=== PATIENT | female | born 1990 | race Caucasian/White ===

== ENCOUNTER 2016-03-16 14:23 | Emergency (ER) | payer BC ==
[2016-03-16 14:51] VITALS: RESP 18
[2016-03-16] MEDS ORDERED: ONDANSETRON 4 MG/2 ML VIAL IVP STA (17:57)
[2016-03-16] MEDS ORDERED: SODIUM CHLORIDE 0.9% 1,000 ML IV ONE (17:59)
[2016-03-16] MEDS ORDERED: MORPHINE SULFATE 4 MG/ML SYRINGE IVP STA (18:00)
--- NOTE | 2016-03-16 18:05 | ED ---
Nausea/Vomiting/Diarrhea HPI - General Chief complaint: Nausea/Vomiting/Diarrhea Stated complaint: Abd Pain Time Seen by Provider: 03/16/16 17:25 Source: patient, RN notes reviewed Mode of arrival: ambulatory Limitations: no limitations - History of Present Illness Initial comments: Patient is a 25-year-old female presents emergency room for abdominal pain, nausea and vomiting. Patient states about 4 days ago she began having multiple episodes of diarrhea. Patient states 2 days later she began having nausea and vomiting. Patient states she can't keep any food down. Patient states she began developing right lower quadrant pain starting this afternoon. Patient states the pain is getting worse since it started. Patient denies any abdominal surgeries. Patient states she is having 5 out of 10 constant throbbing pain in her right lower quadrant that radiates to her back. Patient denies any pain or burning during urination, trouble urinating or blood in urine. Patient denies being currently sexually active. Patient denies any history of STDs. Patient states she is currently menstruating. Patient denies any other significant past medical history. Patient denies blood in stools. Patient denies recent travel outside of the country. - Related Data Home Medications Medication Instructions Recorded Confirmed Norethindrone-E.estradiol-Iron 1 tab PO HS 03/16/16 03/16/16 [Blisovi Fe 1.5-30 Tablet] Previous Rx's Medication Instructions Recorded Nitrofurantoin Monohyd/M-Cryst 100 mg PO Q12HR 5 Days 03/16/16 [Macrobid] Ondansetron Odt [Zofran Odt] 4 mg PO Q8HR PRN #12 tab 03/16/16 Allergies Allergy/AdvReac Type Severity Reaction Status Date / Time No Known Allergies Allergy Verified 03/16/16 18:15 Review of Systems ROS Statement: Those systems with pertinent positive or pertinent negative responses have been documented in the HPI. ROS Other: All systems not noted in ROS Statement are negative. Past Medical History Past Medical History: No Reported History, Seizure Disorder Additional Past Medical History / Comment(s): ovarian cyst History of Any Multi-Drug Resistant Organisms: None Reported Additional Past Surgical History / Comment(s): ovarian cyst removed Past Psychological History: No Psychological Hx Reported Smoking Status: Never smoker Past Alcohol Use History: Occasional Past Drug Use History: None Reported General Exam - General Exam Comments Initial Comments: Sitting in exam room, no acute distress. Limitations: no limitations General appearance: alert, in no apparent distress Head exam: Present: atraumatic, normocephalic, normal inspection Eye exam: Present: normal appearance ENT exam: Present: normal exam Neck exam: Present: normal inspection Respiratory exam: Present: normal lung sounds bilaterally. Absent: respiratory distress Cardiovascular Exam: Present: regular rate, normal rhythm, normal heart sounds GI/Abdominal exam: Present: soft, tenderness (Right lower quadrant), normal bowel sounds. Absent: distended, guarding, rebound, rigid External exam: Present: normal external exam Speculum exam: Present: vaginal bleeding (Patient is menstruating) By manual exam: Present: normal by manual exam Extremities exam: Present: normal inspection Back exam: Present: normal inspection Neurological exam: Present: alert, oriented X3, CN II-XII intact, normal gait Psychiatric exam: Present: normal affect, normal mood Skin exam: Present: warm, dry, intact, normal color. Absent: rash Course Vital Signs 03/16/16 14:48 Temperature 98.9 F Pulse Rate 89 Respiratory 18 Rate Blood Pressure 125/71 O2 Sat by Pulse 100 Oximetry Medical Decision Making - Medical Decision Making Patient is a 25-year-old female since emergency room for evaluation of nausea, vomiting and abdominal pain. Labs show no significant findings. Urinalysis suspicious for urinary tract infection. CT abdomen and pelvis shows no acute findings. Patient states she is feeling better after medications. Will send patient home with antibiotics for urinary tract infection and advised to return for any worsening symptoms. Patient states she understands everything that was discussed with her. Case discussed with Dr. Zaman - Lab Data Result diagrams: 03/16/16 17:35 03/16/16 17:35 Lab Results 03/16/16 03/16/16 03/16/16 Range/Units 17:35 17:35 17:35 WBC 7.9 (3.8-10.6) k/uL RBC 4.95 (3.80-5.40) m/uL Hgb 14.4 (11.4-16.0) gm/dL Hct 42.0 (34.0-46.0) % MCV 84.9 (80.0-100.0) fL MCH 29.1 (25.0-35.0) pg MCHC 34.3 (31.0-37.0) g/dL RDW 12.6 (11.5-15.5) % Plt Count 175 (150-450) k/uL Neutrophils % 58 % Lymphocytes % 28 % Monocytes % 7 % Eosinophils % 4 % Basophils % 0 % Neutrophils # 4.6 (1.3-7.7) k/uL Lymphocytes # 2.2 (1.0-4.8) k/uL Monocytes # 0.6 (0-1.0) k/uL Eosinophils # 0.3 (0-0.7) k/uL Basophils # 0.0 (0-0.2) k/uL Sodium 143 (137-145) mmol/L Potassium 3.9 (3.5-5.1) mmol/L Chloride 106 (98-107) mmol/L Carbon Dioxide 24 (22-30) mmol/L Anion Gap 13 mmol/L BUN 14 (7-17) mg/dL Creatinine 0.68 (0.52-1.04) mg/dL Est GFR (MDRD) Af Amer >60 (>60 ml/min/1.73 sqM) Est GFR (MDRD) Non-Af >60 (>60 ml/min/1.73 sqM) Glucose 81 (74-99) mg/dL Calcium 9.4 (8.4-10.2) mg/dL Total Bilirubin 1.1 (0.2-1.3) mg/dL AST 27 (14-36) U/L ALT 53 H (9-52) U/L Alkaline Phosphatase 61 (38-126) U/L Total Protein 7.9 (6.3-8.2) g/dL Albumin 4.4 (3.5-5.0) g/dL Amylase 32 (30-110) U/L Lipase 53 (23-300) U/L Urine Color Urine Appearance (Clear) Urine pH (5.0-8.0) Ur Specific [place] (1.001-1.035) Urine Protein (Negative) Urine Glucose (UA) (Negative) Urine Ketones (Negative) Urine Blood (Negative) Urine Nitrate (Negative) Urine Bilirubin (Negative) Urine Urobilinogen (<2.0) mg/dL Ur Leukocyte Esterase (Negative) Urine RBC (0-5) /hpf Urine WBC (0-5) /hpf Ur Squamous Epith Cells (0-4) /hpf Urine Bacteria (None) /hpf Hyaline Casts (0-2) /lpf Urine Mucus (None) /hpf Urine HCG, Qual (Not Detectd) Trichomonas Ag (Rapid) (Negative) 03/16/16 03/16/16 03/16/16 Range/Units 17:35 17:35 18:50 WBC (3.8-10.6) k/uL RBC (3.80-5.40) m/uL Hgb (11.4-16.0) gm/dL Hct (34.0-46.0) % MCV (80.0-100.0) fL MCH (25.0-35.0) pg MCHC (31.0-37.0) g/dL RDW (11.5-15.5) % Plt Count (150-450) k/uL Neutrophils % % Lymphocytes % % Monocytes % % Eosinophils % % Basophils % % Neutrophils # (1.3-7.7) k/uL Lymphocytes # (1.0-4.8) k/uL Monocytes # (0-1.0) k/uL Eosinophils # (0-0.7) k/uL Basophils # (0-0.2) k/uL Sodium (137-145) mmol/L Potassium (3.5-5.1) mmol/L Chloride (98-107) mmol/L Carbon Dioxide (22-30) mmol/L Anion Gap mmol/L BUN (7-17) mg/dL Creatinine (0.52-1.04) mg/dL Est GFR (MDRD) Af Amer (>60 ml/min/1.73 sqM) Est GFR (MDRD) Non-Af (>60 ml/min/1.73 sqM) Glucose (74-99) mg/dL Calcium (8.4-10.2) mg/dL Total Bilirubin (0.2-1.3) mg/dL AST (14-36) U/L ALT (9-52) U/L Alkaline Phosphatase (38-126) U/L Total Protein (6.3-8.2) g/dL Albumin (3.5-5.0) g/dL Amylase (30-110) U/L Lipase (23-300) U/L Urine Color Light Red Urine Appearance Cloudy H (Clear) Urine pH 7.0 (5.0-8.0) Ur Specific [place] 1.023 (1.001-1.035) Urine Protein 1+ H (Negative) Urine Glucose (UA) Negative (Negative) Urine Ketones 1+ H (Negative) Urine Blood Large H (Negative) Urine Nitrate Negative (Negative) Urine Bilirubin Negative (Negative) Urine Urobilinogen 2.0 (<2.0) mg/dL Ur Leukocyte Esterase Small H (Negative) Urine RBC >182 H (0-5) /hpf Urine WBC 33 H (0-5) /hpf Ur Squamous Epith Cells 2 (0-4) /hpf Urine Bacteria Few H (None) /hpf Hyaline Casts 2 (0-2) /lpf Urine Mucus Occasional H (None) /hpf Urine HCG, Qual Not Detected (Not Detectd) Trichomonas Ag (Rapid) Negative (Negative) - Radiology Data Radiology results: report reviewed, image reviewed Disposition Clinical Impression: Nausea and vomiting, Urinary tract infection Disposition: HOME SELF-CARE Condition: Good Instructions: Acute Nausea and Vomiting (ED), Urinary Tract Infection in Women (ED) Additional Instructions: Take antibiotics as directed. Take Zofran as needed for nausea. Drink plenty of fluids. Please follow-up with primary care provider in 1-2 days for reevaluation. If any new symptom arises, symptoms worsen or fever develops, return to ER as soon as possible. Prescriptions: Ondansetron Odt [Zofran Odt] 4 mg PO Q8HR PRN #12 tab PRN Reason: Nausea Nitrofurantoin Monohyd/M-Cryst [Macrobid] 100 mg PO Q12HR 5 Days Referrals: Brett Rhodes MD [Primary Care Provider] - 1-2 days Time of Disposition: 20:02
[2016-03-16 18:10] LABS: Basophils % (A) 0 %; CHCM 35.4; Eosinophils # (A) 0.3 k/uL (0-0.7); Eosinophils % (A) 4 %; HDW 2.79; HGB 14.4 gm/dL (11.4-16.0); Luc # (Auto) 0.21; Luc % (Auto) 3; Lymphocytes # (A) 2.2 k/uL (1.0-4.8); Lymphocytes % (A) 28 %; MCH 29.1 pg (25.0-35.0); MCHC 34.3 g/dL (31.0-37.0); MCV 84.9 fL (80.0-100.0); Mean Platelet Volume 8.3; Monocytes # (A) 0.6 k/uL (0-1.0); Monocytes % (A) 7 %; Neutrophils # (A) 4.6 k/uL (1.3-7.7); Neutrophils % (A) 58 %; RBC 4.95 m/uL (3.80-5.40); RDW 12.6 % (11.5-15.5); WBC 7.9 k/uL (3.8-10.6); WBC (Perox) 8.05
[2016-03-16 18:12] LABS: Appearance,Urine Cloudy (Clear); Bacteria,Urine Few /hpf; Bilirubin,Urine Negative (Negative); Glucose,Urine (UA) Negative (Negative); Ketones,Urine 1+ (Negative); Leukocyte Esterase,Urine Small (Negative); Mucus,Urine Occasional /hpf; Nitrite,Urine Negative (Negative); Particle Count 9167; Protein,Urine 1+ (Negative); RBC,Urine >182 /hpf (0-5); Specific Gravity,Urine 1.023 (1.001-1.035); Squamous Epithelial Cell,Urine 2 /hpf (0-4); UA Billing (MACRO vs. MICRO) MICRO; WBC,Urine 33 /hpf (0-5)
[2016-03-16 18:23] LABS: ALT 53 U/L (9-52); AST 27 U/L (14-36); Alkaline Phosphatase 61 U/L (38-126); Amylase 32 U/L (30-110); Anion Gap 13 mmol/L; Blood Urea Nitrogen 14 mg/dL (7-17); Calcium 9.4 mg/dL (8.4-10.2); Carbon Dioxide 24 mmol/L (22-30); Chloride 106 mmol/L (98-107); Glucose 81 mg/dL (74-99); Non-African American GFR(MDRD) >60 (>60 ml/min/1.73 sqM); Potassium 3.9 mmol/L (3.5-5.1); Sodium 143 mmol/L (137-145); Total Bilirubin 1.1 mg/dL (0.2-1.3); Total Protein 7.9 g/dL (6.3-8.2)
[2016-03-16] MEDS ORDERED: RX INFO: IV CONTRAST WAS GIVEN 1 EACH MISC MISCELLANE PRN ×2 (18:49→18:53)
--- NOTE | 2016-03-16 19:26 | CT ---
EXAMINATION TYPE: CT abdomen pelvis w con DATE OF EXAM: 03/16/2016 7:18 PM COMPARISON: 11/08/2014 HISTORY: Nausea, vomiting and diarrhea with right lower quadrant pain. CT DLP: 1071.40 mGycm Automated exposure control for dose reduction was used. TECHNIQUE: Helical acquisition of images was performed from the lung bases through the pelvis. CONTRAST: Performed without Oral Contrast and with IV Contrast, patient injected with 100 mL of Omnipaque 300. FINDINGS: The lung bases are clear. There is no pleural effusion. Liver spleen pancreas gallbladder appear normal. Bowel ducts are not dilated. There is no adrenal mas s. Kidneys show satisfactory contrast opacification. There is no hydronephrosis. There is no retroper itoneal adenopathy. There is no ascites. Terminal ileum appears normal. Appendix appears normal. I se e no intestinal wall thickening. There are no dilated loops. There is no ascites. There is a 3 cm lef t ovarian cyst. Uterus is anteverted. I see no bony destructive process. IMPRESSION: LEFT OVARIAN CYST. NORMAL APPENDIX. I DO NOT SEE A CAUSE FOR RIGHT LOWER QUADRANT PAIN. SPLEEN IS UPP ER LIMIT OF NORMAL SIZE AND APPEARS SMALLER THAN OLD EXAM.
[2016-03-16 20:33] VITALS: BP 145/87; PULSE 88; TEMP 98
== END 2016-03-16 20:33 | disposition home or self-care (01) ==
LOC: EC 14:23
DX: N39.0 Urinary tract infection, site not specified (principal); R11.2 Nausea with vomiting, unspecified; R19.7 Diarrhea, unspecified; N83.202 Unspecified ovarian cyst, left side; Z79.3 Long term (current) use of hormonal contraceptives
CPT/HCPCS: 87205; 96361 ×3; 96374 ×2; 96375 ×2; 99284 ×2; 36415; 80053; 87591; 87491; 82150; 83690; 85025; 81001; 81025; 87808; 87070; 87086; 74177; J2270; J2405; Q9967

== ENCOUNTER → 2016-09-24 | Outpatient (CLI) | payer BC ==
--- NOTE | 2016-10-02 12:52 | HM ---
24 HOUR DCG REPORT Patient in her diary did not indicate any entries. Predominant rhythm appears to be sinus with a heart rate ranging from 56 to 150 beats per minute with an average heart rate of 87 beats per minute. Rare isolated PAC's and PVC's were noted. There was some sinus arrhythmia. There is no evidence of any significant bradyarrhythmia noted. Patient did not report any symptoms. FINAL IMPRESSION: Predominant rhythm is sinus with sinus arrhythmia. Average heart rate was 87 beats per minute. There were rare isolated PAC's and PVC's. No significant bradyarrhythmia was noted. [facility]
== END | disposition home or self-care (01) ==
LOC: RADECHMAIN 11:54
PROVIDERS: ATTEND Family Medicine
DX: I49.1 Atrial premature depolarization (principal); I49.3 Ventricular premature depolarization
CPT/HCPCS: 93225; 93226

== ENCOUNTER 2016-11-06 18:40 | Emergency (ER) | payer BC ==
[2016-11-06] MEDS ORDERED: KETOROLAC 30 MG/ML 1 ML VIAL IVP STA (19:33)
[2016-11-06] MEDS ORDERED: SODIUM CHLORIDE 0.9% 1,000 ML IV STA (19:33)
--- NOTE | 2016-11-06 19:37 | ED ---
Chest Pain HPI - General Chief Complaint: Chest Pain Stated Complaint: heart racing, pain Time Seen by Provider: 11/06/16 19:22 Source: patient, RN notes reviewed, old records reviewed Mode of arrival: ambulatory Limitations: no limitations - History of Present Illness Initial Comments: This is a 26 rolled female presents emergency Department chief complaint of a heart racing episode while she was at work today, and a left-sided chest pain. Patient states that she has had similar episodes like this in the past. She did have a Holter monitor completed towards the end of last month. Patient states that she felt diaphoretic when she had a subsequent, denies any nausea or vomiting. She states that she does have some reproducible pain over her left chest, but states that sometimes the pain feels deeper. She reports it seems like sharp and stabbing. Denies any cough or upper respiratory symptoms. She relates that she's had no diarrhea, urinary symptoms. No significant family history of cardiac disease. - Related Data Home Medications Medication Instructions Recorded Confirmed Norethindrone-E.estradiol-Iron 1 tab PO HS 03/16/16 11/06/16 [Blisovi Fe 1.5-30 Tablet] Allergies Allergy/AdvReac Type Severity Reaction Status Date / Time No Known Allergies Allergy Verified 11/06/16 19:22 Review of Systems ROS Statement: Those systems with pertinent positive or pertinent negative responses have been documented in the HPI. ROS Other: All systems not noted in ROS Statement are negative. EKG Findings - EKG Comments: EKG Findings:: EKG shows normal sinus rhythm. Ventricular rate of 87 bpm. KS interval 162 ms. QRS duration 80 ms. QT QTc is 362/435 ms. Noelevation or T- wave inversion. No evidence of atrial or ventricular Past Medical History Past Medical History: No Reported History, Seizure Disorder Additional Past Medical History / Comment(s): ovarian cyst History of Any Multi-Drug Resistant Organisms: None Reported Additional Past Surgical History / Comment(s): ovarian cyst removed Past Psychological History: No Psychological Hx Reported Smoking Status: Never smoker Past Alcohol Use History: Occasional Past Drug Use History: None Reported General Exam - General Exam Comments Initial Comments: This is a 26-year-old female. No acute distress. Limitations: no limitations General appearance: alert, in no apparent distress Head exam: Present: atraumatic, normocephalic, normal inspection Eye exam: Present: normal appearance, PERRL, EOMI. Absent: scleral icterus, conjunctival injection, periorbital swelling ENT exam: Present: normal exam, mucous membranes moist Neck exam: Present: normal inspection. Absent: tenderness, meningismus, lymphadenopathy Respiratory exam: Present: normal lung sounds bilaterally. Absent: respiratory distress, wheezes, rales, rhonchi, stridor Cardiovascular Exam: Present: regular rate, normal rhythm, normal heart sounds. Absent: systolic murmur, diastolic murmur, rubs, gallop, clicks GI/Abdominal exam: Present: soft, normal bowel sounds. Absent: distended, tenderness, guarding, rebound, rigid Extremities exam: Present: normal inspection, full ROM, normal capillary refill. Absent: tenderness, pedal edema, joint swelling, calf tenderness Back exam: Present: normal inspection Neurological exam: Present: alert, oriented X3, CN II-XII intact Psychiatric exam: Present: normal affect, normal mood Skin exam: Present: warm, dry, intact, normal color. Absent: rash Course Vital Signs 11/06/16 11/06/16 18:56 21:35 Temperature 97.8 F 99.2 F Pulse Rate 96 91 Respiratory 16 18 Rate Blood Pressure 122/72 134/70 O2 Sat by Pulse 100 98 Oximetry Chest Pain MDM - MDM This is a 26 rolled female presents emergency Department chief complaint of a heart racing episode while she was at work today, and a left-sided chest pain. Patient states that she has had similar episodes like this in the past. She did have a Holter monitor completed towards the end of last month. Patient lungs are clear, chest pain is not reproducible. Patient has had no further episodes of chest pain. Patient was given toradol and zofran. Patient has negative troponin. CXR is clear. Discussed that at this time with all negative test results, patient needs to follow up with PCP and will be discharged. Discussed her previous holter monitor showed occasional PVC , which may relate to her pain. Patient agrees to follow up with cardioology. Disposition Clinical Impression: Atypical chest pain Disposition: HOME SELF-CARE Condition: Good Instructions: Chest Pain (ED) Additional Instructions: Follow up with PCP, and cardiology. REturn if any alarming signs or symptoms occur. Referrals: Brett Rhodes MD [Primary Care Provider] - 1-2 days Angely Meneses MD [STAFF PHYSICIAN] - 1-2 days Time of Disposition: 21:53
[2016-11-06 20:02] LABS: Basophils % (A) 0 %; CH 30.1; CHCM 35.8; Eosinophils # (A) 0.2 k/uL (0-0.7); Eosinophils % (A) 2 %; HCT 43.1 % (34.0-46.0); HDW 2.82; HGB 15.4 gm/dL (11.4-16.0); Luc # (Auto) 0.24; Luc % (Auto) 3; Lymphocytes # (A) 2.5 k/uL (1.0-4.8); Lymphocytes % (A) 31 %; MCH 30.2 pg (25.0-35.0); MCHC 35.7 g/dL (31.0-37.0); MCV 84.5 fL (80.0-100.0); Monocytes # (A) 0.4 k/uL (0-1.0); Monocytes % (A) 5 %; Neutrophils # (A) 4.9 k/uL (1.3-7.7); Neutrophils % (A) 59 %; RDW 12.3 % (11.5-15.5); WBC 8.2 k/uL (3.8-10.6); WBC (Perox) 8.24
[2016-11-06 20:09] LABS: ALT 59 U/L (9-52); AST 29 U/L (14-36); Alkaline Phosphatase 72 U/L (38-126); Amylase 36 U/L (30-110); Anion Gap 12 mmol/L; Blood Urea Nitrogen 18 mg/dL (7-17); Calcium 9.9 mg/dL (8.4-10.2); Carbon Dioxide 24 mmol/L (22-30); Chloride 105 mmol/L (98-107); Glucose 82 mg/dL (74-99); Magnesium 1.7 mg/dL (1.6-2.3); Non-African American GFR(MDRD) >60 (>60 ml/min/1.73 sqM); Potassium 4.4 mmol/L (3.5-5.1); Sodium 141 mmol/L (137-145); Total Bilirubin 0.6 mg/dL (0.2-1.3); Total Protein 7.9 g/dL (6.3-8.2)
[2016-11-06 20:10] LABS: Appearance,Urine Cloudy (Clear); Bacteria,Urine Few /hpf; Bilirubin,Urine Negative (Negative); Glucose,Urine (UA) Negative (Negative); Ketones,Urine Negative (Negative); Leukocyte Esterase,Urine Large (Negative); Mucus,Urine Rare /hpf; Nitrite,Urine Negative (Negative); PH, Urine 6.5 (5.0-8.0); Particle Count 2739; Protein,Urine Negative (Negative); RBC,Urine 51 /hpf (0-5); Squamous Epithelial Cell,Urine 3 /hpf (0-4); UA Billing (MACRO vs. MICRO) MICRO; Urobilinogen,Urine <2.0 mg/dL (<2.0); WBC,Urine 48 /hpf (0-5)
[2016-11-06 20:10] LABS: Prothrombin Time 10.3 sec (9.0-12.0)
[2016-11-06 20:20] LABS: Creatine Kinase 30 U/L (30-135)
--- NOTE | 2016-11-06 20:22 | XR ---
EXAMINATION TYPE: XR chest 2V DATE OF EXAM: 11/06/2016 COMPARISON: NONE HISTORY: Chest pain TECHNIQUE: Frontal and lateral views of the chest are obtained. FINDINGS: There is no heart failure nor confluent pneumonic infiltrate. Costophrenic angles are sheldon r. Heart size is normal. There are no hilar masses. There is no sign of pleural effusion. Bony thorax is intact. IMPRESSION: No active cardiopulmonary disease.
[2016-11-06 20:33] LABS: Creatine Kinase MB 0.3 ng/mL (0.0-2.4); Troponin I <0.012 ng/mL (0.000-0.034)
[2016-11-06 21:47] VITALS: BP 134/70; PULSE 91; RESP 18; TEMP 99.2
== END 2016-11-06 22:12 | disposition home or self-care (01) ==
LOC: EC 18:40
DX: R07.89 Other chest pain (principal); R00.0 Tachycardia, unspecified; R61 Generalized hyperhidrosis; Z79.3 Long term (current) use of hormonal contraceptives
CPT/HCPCS: 36415; 93005; 85379; 80053; 82150; 82550; 82553; 83690; 83735; 84484; 85025; 85610; 85730; 81001; 71020; 99285; 96374; 96361 ×2; J1885

== ENCOUNTER 2017-01-07 18:18 | Emergency (ER) | payer BC ==
[2017-01-07] MEDS ORDERED: LORazepam 2 MG/ML INJ IV STA (18:50)
[2017-01-07 19:27] LABS: Appearance,Urine Cloudy (Clear); Bacteria,Urine Few /hpf; Bilirubin,Urine Negative (Negative); Glucose,Urine (UA) Negative (Negative); Ketones,Urine Negative (Negative); Leukocyte Esterase,Urine Trace (Negative); Mucus,Urine Few /hpf; Nitrite,Urine Negative (Negative); PH, Urine 6.5 (5.0-8.0); Particle Count 9471; Protein,Urine 1+ (Negative); RBC,Urine <1 /hpf (0-5); Specific Gravity,Urine 1.022 (1.001-1.035); Squamous Epithelial Cell,Urine 4 /hpf (0-4); UA Billing (MACRO vs. MICRO) MICRO; Urobilinogen,Urine <2.0 mg/dL (<2.0); WBC,Urine 9 /hpf (0-5)
[2017-01-07 19:38] LABS: Basophils % (A) 0 %; CHCM 35.7; Eosinophils # (A) 0.1 k/uL (0-0.7); Eosinophils % (A) 1 %; HCT 44.5 % (34.0-46.0); HDW 2.97; HGB 15.2 gm/dL (11.4-16.0); Luc # (Auto) 0.23; Luc % (Auto) 2; Lymphocytes # (A) 2.3 k/uL (1.0-4.8); Lymphocytes % (A) 22 %; MCH 28.8 pg (25.0-35.0); MCHC 34.2 g/dL (31.0-37.0); MCV 84.2 fL (80.0-100.0); Monocytes # (A) 0.5 k/uL (0-1.0); Monocytes % (A) 5 %; Neutrophils # (A) 7.2 k/uL (1.3-7.7); Neutrophils % (A) 69 %; RBC 5.28 m/uL (3.80-5.40); RDW 11.8 % (11.5-15.5); WBC 10.4 k/uL (3.8-10.6); WBC (Perox) 9.99
--- NOTE | 2017-01-07 19:43 | ED ---
General Adult HPI - General Chief complaint: Seizure Stated complaint: seizure Time Seen by Provider: 01/07/17 18:44 Source: patient, RN notes reviewed Mode of arrival: ambulatory Limitations: no limitations - History of Present Illness Initial comments: Patient will be 26-year-old female with significant past medical history for seizures, who presents emergency room today with a chief complaint of seizure that occurred approximately 45 minutes prior to arrival. Patient does admit that she got home from work. Her mother was in the kitchen. Mother providing further history stating that she sat down on a chair and then went into a tonic- clonic type seizure. Patient states that approximately 9 years since she had a seizure similar to this. She states she is no longer on seizure medication she was taken off of them. Patient unable to remember what seizure medication she was on in the past. Patient does admit that she had some cough congestion approximately a week ago which has improved. She does admit to being tired at this time. Mother states it was a postictal phase. She denies any other complaints or symptoms. Patient denies any recent fever, chills, shortness of breath, chest pain, back pain, abdominal pain, nausea or vomiting, numbness or tingling, dysuria or hematuria, constipation or diarrhea, headaches or visual changes, or any other complaints. - Related Data Home Medications Medication Instructions Recorded Confirmed Norethindrone-E.estradiol-Iron 1 tab PO HS 03/16/16 01/07/17 [Blisovi Fe 1.5-30 Tablet] D-Methorphan/PE/Acetaminophen 2 cap PO Q6H PRN 01/07/17 01/07/17 [Vicks Dayquil Liquicaps] Fluticasone Nasal [place] [Flonase 1 spray EA NOSTRIL DAILY PRN 01/07/17 01/07/17 Nasal [place]] Metoprolol Succinate [Toprol XL] 25 mg PO DAILY 01/07/17 01/07/17 Previous Rx's Medication Instructions Recorded Ondansetron Odt [Zofran ODT] 4 mg PO Q8HR PRN #20 tab 01/07/17 levETIRAcetam [Keppra] 500 mg PO Q12HR #60 tab 01/07/17 Allergies Allergy/AdvReac Type Severity Reaction Status Date / Time No Known Allergies Allergy Verified 01/07/17 18:57 Review of Systems ROS Statement: Those systems with pertinent positive or pertinent negative responses have been documented in the HPI. ROS Other: All systems not noted in ROS Statement are negative. Past Medical History Past Medical History: Seizure Disorder Additional Past Medical History / Comment(s): ovarian cyst, heart palpitations History of Any Multi-Drug Resistant Organisms: None Reported Past Surgical History: Adenoidectomy Additional Past Surgical History / Comment(s): ovarian cyst removed Past Psychological History: No Psychological Hx Reported Smoking Status: Never smoker Past Alcohol Use History: Occasional Past Drug Use History: None Reported General Exam - General Exam Comments Initial Comments: General: The patient is awake and alert, in no distress, and does not appear acutely ill. Eye: Pupils are equal, round and reactive to light, extra-ocular movements are intact. No nystagmus. There is normal conjunctiva bilaterally. No signs of icterus. Ears, nose, mouth and throat: There are moist mucous membranes and no oral lesions. Neck: The neck is supple, there is no tenderness or JVD. Cardiovascular: There is a regular rate and rhythm. No murmur, rub or gallop is appreciated. Respiratory: Lungs are clear to auscultation, respirations are non-labored, breath sounds are equal. No wheezes, stridor, rales, or rhonchi. Gastrointestinal: Soft, non-distended, non-tender abdomen without masses or organomegaly noted. There is no rebound or guarding present. No CVA tenderness. Bowel sounds are unremarkable. Musculoskeletal: Normal ROM, no tenderness. Strength 5/5. Sensation intact. Pulses equal bilaterally 2+. Neurological: A&O x 3. CN II-XII intact, There are no obvious motor or sensory deficits. Coordination appears grossly intact. Speech is normal. Skin: Skin is warm and dry and no rashes or lesions are noted. Psychiatric: Cooperative, appropriate mood & affect, normal judgment. Limitations: no limitations Course Vital Signs 01/07/17 01/07/17 18:32 19:27 Temperature 98.1 F Pulse Rate 77 81 Respiratory 18 16 Rate Blood Pressure 124/74 124/64 O2 Sat by Pulse 99 100 Oximetry Medical Decision Making - Medical Decision Making Examined at this time shows no signs of distress. Resting comfortably. No symptoms at this time. Patient feeling better here in emergency room. Patient' s labs been reviewed. Urine culture will be added in this patient is symptomatic. Patient will be started on Keppra. Advised follow-up the family doctor neurologist tomorrow. Advised return to emergency room if any symptoms increase worsen or for any other concerns. - Lab Data Result diagrams: 01/07/17 19:00 01/07/17 19:00 Lab Results 01/07/17 01/07/17 01/07/17 Range/Units 19:00 19:00 19:15 WBC 10.4 (3.8-10.6) k/uL RBC 5.28 (3.80-5.40) m/uL Hgb 15.2 (11.4-16.0) gm/dL Hct 44.5 (34.0-46.0) % MCV 84.2 (80.0-100.0) fL MCH 28.8 (25.0-35.0) pg MCHC 34.2 (31.0-37.0) g/dL RDW 11.8 (11.5-15.5) % Plt Count 226 (150-450) k/uL Neutrophils % 69 % Lymphocytes % 22 % Monocytes % 5 % Eosinophils % 1 % Basophils % 0 % Neutrophils # 7.2 (1.3-7.7) k/uL Lymphocytes # 2.3 (1.0-4.8) k/uL Monocytes # 0.5 (0-1.0) k/uL Eosinophils # 0.1 (0-0.7) k/uL Basophils # 0.0 (0-0.2) k/uL Sodium 143 (137-145) mmol/L Potassium 4.1 (3.5-5.1) mmol/L Chloride 103 (98-107) mmol/L Carbon Dioxide 27 (22-30) mmol/L Anion Gap 13 mmol/L BUN 19 H (7-17) mg/dL Creatinine 0.80 (0.52-1.04) mg/dL Est GFR (MDRD) Af Amer >60 (>60 ml/min/1.73 sqM) Est GFR (MDRD) Non-Af >60 (>60 ml/min/1.73 sqM) Glucose 89 (74-99) mg/dL Calcium 10.0 (8.4-10.2) mg/dL Total Bilirubin 0.4 (0.2-1.3) mg/dL AST 39 H (14-36) U/L ALT 66 H (9-52) U/L Alkaline Phosphatase 112 (38-126) U/L Total Protein 7.9 (6.3-8.2) g/dL Albumin 4.5 (3.5-5.0) g/dL Urine Color Yellow Urine Appearance Cloudy H (Clear) Urine pH 6.5 (5.0-8.0) Ur Specific [place] 1.022 (1.001-1.035) Urine Protein 1+ H (Negative) Urine Glucose (UA) Negative (Negative) Urine Ketones Negative (Negative) Urine Blood Negative (Negative) Urine Nitrite Negative (Negative) Urine Bilirubin Negative (Negative) Urine Urobilinogen <2.0 (<2.0) mg/dL Ur Leukocyte Esterase Trace H (Negative) Urine RBC <1 (0-5) /hpf Urine WBC 9 H (0-5) /hpf Ur Squamous Epith Cells 4 (0-4) /hpf Urine Bacteria Few H (None) /hpf Urine Mucus Few H (None) /hpf Urine Yeast (Budding) Occasional H (None) /hpf Urine HCG, Qual (Not Detectd) 01/07/17 Range/Units 19:15 WBC (3.8-10.6) k/uL RBC (3.80-5.40) m/uL Hgb (11.4-16.0) gm/dL Hct (34.0-46.0) % MCV (80.0-100.0) fL MCH (25.0-35.0) pg MCHC (31.0-37.0) g/dL RDW (11.5-15.5) % Plt Count (150-450) k/uL Neutrophils % % Lymphocytes % % Monocytes % % Eosinophils % % Basophils % % Neutrophils # (1.3-7.7) k/uL Lymphocytes # (1.0-4.8) k/uL Monocytes # (0-1.0) k/uL Eosinophils # (0-0.7) k/uL Basophils # (0-0.2) k/uL Sodium (137-145) mmol/L Potassium (3.5-5.1) mmol/L Chloride (98-107) mmol/L Carbon Dioxide (22-30) mmol/L Anion Gap mmol/L BUN (7-17) mg/dL Creatinine (0.52-1.04) mg/dL Est GFR (MDRD) Af Amer (>60 ml/min/1.73 sqM) Est GFR (MDRD) Non-Af (>60 ml/min/1.73 sqM) Glucose (74-99) mg/dL Calcium (8.4-10.2) mg/dL Total Bilirubin (0.2-1.3) mg/dL AST (14-36) U/L ALT (9-52) U/L Alkaline Phosphatase (38-126) U/L Total Protein (6.3-8.2) g/dL Albumin (3.5-5.0) g/dL Urine Color Urine Appearance (Clear) Urine pH (5.0-8.0) Ur Specific [place] (1.001-1.035) Urine Protein (Negative) Urine Glucose (UA) (Negative) Urine Ketones (Negative) Urine Blood (Negative) Urine Nitrite (Negative) Urine Bilirubin (Negative) Urine Urobilinogen (<2.0) mg/dL Ur Leukocyte Esterase (Negative) Urine RBC (0-5) /hpf Urine WBC (0-5) /hpf Ur Squamous Epith Cells (0-4) /hpf Urine Bacteria (None) /hpf Urine Mucus (None) /hpf Urine Yeast (Budding) (None) /hpf Urine HCG, Qual Not Detected (Not Detectd) Disposition Clinical Impression: Seizure Disposition: HOME SELF-CARE Condition: Good Instructions: New-Onset Seizure in Adults (ED) Additional Instructions: Please use medication as discussed. Please follow-up with family doctor/ neurologist in the next 1-2 days. Please return to emergency room if the symptoms increase or worsen or for any other concerns. Prescriptions: levETIRAcetam [Keppra] 500 mg PO Q12HR #60 tab Ondansetron Odt [Zofran ODT] 4 mg PO Q8HR PRN #20 tab PRN Reason: Nausea Referrals: Brett Rhodes MD [Primary Care Provider] - 1-2 days Time of Disposition: 20:00
[2017-01-07 19:46] LABS: ALT 66 U/L (9-52); AST 39 U/L (14-36); Alkaline Phosphatase 112 U/L (38-126); Anion Gap 13 mmol/L; Blood Urea Nitrogen 19 mg/dL (7-17); Carbon Dioxide 27 mmol/L (22-30); Chloride 103 mmol/L (98-107); Glucose 89 mg/dL (74-99); Non-African American GFR(MDRD) >60 (>60 ml/min/1.73 sqM); Potassium 4.1 mmol/L (3.5-5.1); Sodium 143 mmol/L (137-145); Total Bilirubin 0.4 mg/dL (0.2-1.3); Total Protein 7.9 g/dL (6.3-8.2)
[2017-01-07] MEDS ORDERED: levETIRAcetam 500 MG TAB PO STA (19:55)
[2017-01-07] MEDS ORDERED: ONDANSETRON 4 MG/2 ML VIAL IVP STA (19:56)
[2017-01-07 20:16] VITALS: BP 112/63; PULSE 85; RESP 18
[2017-01-07 20:32] VITALS: TEMP 98
== END 2017-01-07 20:31 | disposition home or self-care (01) ==
LOC: EC 18:18
DX: R56.9 Unspecified convulsions (principal); R05 Cough; R09.81 Nasal congestion; Z79.3 Long term (current) use of hormonal contraceptives; Z79.899 Other long term (current) drug therapy
CPT/HCPCS: 36415; 80053; 85025; 81001; 81025; 99284; 96374; 96375; J2060; J2405

== ENCOUNTER → 2017-04-06 | Outpatient (CLI) | payer BC ==
--- NOTE | 2017-04-06 14:18 | CT ---
EXAMINATION TYPE: CT brain wo con DATE OF EXAM: 04/06/2017 COMPARISON: NONE HISTORY: Patient complains of recent epileptic seizure. Patient has a history of epilepsy. CT DLP: 848.[address] of the brain was performed. The ventricles, basal cisterns and sulci overlying the cerebral convexities demonstrate a normal appe arance. There is no evidence for intracranial hemorrhage or sulcal effacement. No mass effects are seen. Osseous calvarium is intact. If symptoms persist consider MRI as clinically warranted. IMPRESSION: 1. No acute intracranial process is seen at this time.
== END | disposition home or self-care (01) ==
LOC: RADCTMAIN 13:30
PROVIDERS: ATTEND Family Medicine
DX: G40.909 Epilepsy, unspecified, not intractable, without status epilepticus (principal)
CPT/HCPCS: 70450

== ENCOUNTER 2017-11-12 12:35 | Emergency (ER) | payer BC ==
--- NOTE | 2017-11-12 13:59 | ED ---
Abdominal Pain HPI - General Chief Complaint: Abdominal Pain Stated Complaint: R Side Pain Time Seen by Provider: 11/12/17 13:34 Source: patient Mode of arrival: ambulatory Limitations: no limitations - History of Present Illness Initial Comments: This is a 27-year-old female with past medical history of previous ovarian cysts presenting today for chief complaint lower abdominal cramping right side > left x2 days. Patient states that she was one week late for period and that her and her have been trying to conceive for the past month. Patient took 2 negative at home tests with the last being yesterday. 2 days ago patient began experiencing lower abdominal cramping, she stated this was identical to that when she is menstruating. However today she noticed that the pelvic pain was more right-sided and radiating towards her back. Patient states that she has been lightly spotting for the past 2 days, she denies any heavy vaginal bleeding, vaginal discharge, vaginal odor, urgency, frequency, dysuria, hematuria, nausea, vomiting, diarrhea or constipation, history of kidney stones, chest pain, shortness of breath, upper abdominal pain, or any other associated symptoms. Pt was concerned she was although testing was negative and presented for evaluation. Upon arrival pt VS stable, she appeared comfortable, in no acute distress. - Related Data Home Medications Medication Instructions Recorded Confirmed Acetaminophen Tab [Tylenol Tab] 650 mg PO Q4H PRN 11/12/17 11/12/17 Cetirizine HCl [Zyrtec] 10 mg PO DAILY 11/12/17 11/12/17 Ibuprofen [Motrin Ib] 400 mg PO Q6H PRN 11/12/17 11/12/17 27-1 1 tab PO DAILY 11/12/17 11/12/17 levETIRAcetam 1,000 mg PO Q12HR 11/12/17 11/12/17 Allergies Allergy/AdvReac Type Severity Reaction Status Date / Time No Known Allergies Allergy Verified 11/12/17 15:29 Review of Systems ROS Statement: Those systems with pertinent positive or pertinent negative responses have been documented in the HPI. ROS Other: All systems not noted in ROS Statement are negative. Constitutional: Denies: fever, chills, night sweats ENT: Denies: ear pain, throat pain Respiratory: Denies: cough, dyspnea Cardiovascular: Denies: chest pain, palpitations, dyspnea on exertion Endocrine: Denies: fatigue Gastrointestinal: Reports: as per HPI. Denies: nausea, vomiting, diarrhea, constipation, hematemesis, melena, hematochezia Genitourinary: Reports: abnormal menses. Denies: urgency, dysuria, frequency, hematuria, discharge Musculoskeletal: Reports: as per HPI. Denies: back pain, joint swelling, arthralgia Skin: Denies: rash, lesions Neurological: Denies: headache, weakness, numbness, paresthesias Past Medical History Past Medical History: Seizure Disorder Additional Past Medical History / Comment(s): ovarian cyst, heart palpitations History of Any Multi-Drug Resistant Organisms: None Reported Past Surgical History: Adenoidectomy Additional Past Surgical History / Comment(s): ovarian cyst removed Past Psychological History: No Psychological Hx Reported Smoking Status: Never smoker Past Alcohol Use History: Occasional Past Drug Use History: None Reported General Exam - General Exam Comments Initial Comments: General: The patient is awake and alert, in no distress, and does not appear acutely ill. Eye: Pupils are equal, round and reactive to light, extra-ocular movements are intact. No nystagmus. There is normal conjunctiva bilaterally. No signs of icterus. Ears, nose, mouth and throat: There are moist mucous membranes and no oral lesions. Neck: The neck is supple, there is no tenderness or JVD. Cardiovascular: There is a regular rate and rhythm. No murmur, rub or gallop is appreciated. Respiratory: Lungs are clear to auscultation, respirations are non-labored, breath sounds are equal. No wheezes, stridor, rales, or rhonchi. Gastrointestinal: Obese abdomen, no scars. No ecchymosis. Soft, non-distended, abdomen without masses or organomegaly noted. Right sided lower pelvic pain with deep palpation. No pain to palpation of the RLQ, LLQ, RUQ, LUQ, epigastric , umbilical regions. There is no rebound or guarding present. No CVA tenderness. Bowel sounds are unremarkable. Musculoskeletal: Normal ROM, no tenderness. Strength 5/5. Sensation intact. Pulses equal bilaterally 2+. Neurological: A&O x 3. CN II-XII intact, There are no obvious motor or sensory deficits. Coordination appears grossly intact. Speech is normal. Skin: Skin is warm and dry and no rashes or lesions are noted. Psychiatric: Cooperative, appropriate mood & affect, normal judgment. Limitations: no limitations External exam: Present: normal external exam. Absent: erythema, swelling, lesions Speculum exam: Present: normal speculum exam, vaginal bleeding (small amount of blood in vault). Absent: erythema, vaginal discharge, tissue, laceration By manual exam: Present: normal by manual exam. Absent: cervical motion tenderness, adnexal tenderness, adnexal mass, uterine enlargement, uterine tenderness Expanded Female exam: Absent: foreign body Speculum exam: Present: cervical OS closed Course Vital Signs 11/12/17 11/12/17 12:44 16:44 Temperature 98.3 F 98 F Pulse Rate 92 76 Respiratory 18 16 Rate Blood Pressure 133/78 125/78 O2 Sat by Pulse 99 98 Oximetry Medical Decision Making - Medical Decision Making Lab unremarkable. HCG urine (-). US (-). UA as above, pt is currently bleeding. Pt denies urinary symptoms. U/S of the appendix obtained although complaints more pelvic than abdominal due to right sided characteristic, returned (-). Abdominal exam benign, no signs of acute abdomen/peritoneal irritation. Pelvic revealed blood in vaginal vault-remainder unremarkable. U/S transvaginal- revealed cysts b/l. Pt did state upon further questioning that she has had similar pain in the past due to cysts but was on control for it. Now she has been off in order to try to conceive. It is probable that pt pelvic pain is due to the cysts seen on U/S or dysmenorrhea. Case discussed with Dr. Hicks at this time we feel pt is stable for d/c with OBGYN f/u. Pt agreed with plan, denies questions at this time. Further imaging was discussed however it decided by both the patient and myself to watch and wait, returning for any worsening symptoms. Pt given tylenol for pain. Pt discharged in stable condition. - Lab Data Result diagrams: 11/12/17 15:02 11/12/17 15:02 Lab Results 11/12/17 11/12/17 11/12/17 Range/Units 14:35 14:35 15:02 WBC 7.0 (3.8-10.6) k/uL RBC 5.16 (3.80-5.40) m/uL Hgb 15.3 (11.4-16.0) gm/dL Hct 44.5 (34.0-46.0) % MCV 86.2 (80.0-100.0) fL MCH 29.5 (25.0-35.0) pg MCHC 34.3 (31.0-37.0) g/dL RDW 12.4 (11.5-15.5) % Plt Count 148 L (150-450) k/uL Neutrophils % 69 % Lymphocytes % 22 % Monocytes % 5 % Eosinophils % 1 % Basophils % 0 % Neutrophils # 4.8 (1.3-7.7) k/uL Lymphocytes # 1.6 (1.0-4.8) k/uL Monocytes # 0.3 (0-1.0) k/uL Eosinophils # 0.1 (0-0.7) k/uL Basophils # 0.0 (0-0.2) k/uL Sodium (137-145) mmol/L Potassium (3.5-5.1) mmol/L Chloride (98-107) mmol/L Carbon Dioxide (22-30) mmol/L Anion Gap mmol/L BUN (7-17) mg/dL Creatinine (0.52-1.04) mg/dL Est GFR (CKD-EPI)AfAm (>60 ml/min/1.73 sqM) Est GFR (CKD-EPI)NonAf (>60 ml/min/1.73 sqM) Glucose (74-99) mg/dL Calcium (8.4-10.2) mg/dL Total Bilirubin (0.2-1.3) mg/dL AST (14-36) U/L ALT (9-52) U/L Alkaline Phosphatase (38-126) U/L Total Protein (6.3-8.2) g/dL Albumin (3.5-5.0) g/dL Urine Color Yellow Urine Appearance Cloudy H (Clear) Urine pH 7.0 (5.0-8.0) Ur Specific [place] 1.015 (1.001-1.035) Urine Protein Negative (Negative) Urine Glucose (UA) Negative (Negative) Urine Ketones Negative (Negative) Urine Blood Large H (Negative) Urine Nitrite Negative (Negative) Urine Bilirubin Negative (Negative) Urine Urobilinogen <2.0 (<2.0) mg/dL Ur Leukocyte Esterase Small H (Negative) Urine RBC 1 (0-5) /hpf Urine WBC 7 H (0-5) /hpf Ur Squamous Epith Cells 7 H (0-4) /hpf Urine Mucus Rare H (None) /hpf Urine HCG, Qual Not Detected (Not Detectd) 11/12/17 Range/Units 15:02 WBC (3.8-10.6) k/uL RBC (3.80-5.40) m/uL Hgb (11.4-16.0) gm/dL Hct (34.0-46.0) % MCV (80.0-100.0) fL MCH (25.0-35.0) pg MCHC (31.0-37.0) g/dL RDW (11.5-15.5) % Plt Count (150-450) k/uL Neutrophils % % Lymphocytes % % Monocytes % % Eosinophils % % Basophils % % Neutrophils # (1.3-7.7) k/uL Lymphocytes # (1.0-4.8) k/uL Monocytes # (0-1.0) k/uL Eosinophils # (0-0.7) k/uL Basophils # (0-0.2) k/uL Sodium 141 (137-145) mmol/L Potassium 4.1 (3.5-5.1) mmol/L Chloride 106 (98-107) mmol/L Carbon Dioxide 24 (22-30) mmol/L Anion Gap 11 mmol/L BUN 13 (7-17) mg/dL Creatinine 0.62 (0.52-1.04) mg/dL Est GFR (CKD-EPI)AfAm >90 (>60 ml/min/1.73 sqM) Est GFR (CKD-EPI)NonAf >90 (>60 ml/min/1.73 sqM) Glucose 78 (74-99) mg/dL Calcium 9.5 (8.4-10.2) mg/dL Total Bilirubin 0.9 (0.2-1.3) mg/dL AST 39 H (14-36) U/L ALT 86 H (9-52) U/L Alkaline Phosphatase 115 (38-126) U/L Total Protein 7.5 (6.3-8.2) g/dL Albumin 4.4 (3.5-5.0) g/dL Urine Color Urine Appearance (Clear) Urine pH (5.0-8.0) Ur Specific [place] (1.001-1.035) Urine Protein (Negative) Urine Glucose (UA) (Negative) Urine Ketones (Negative) Urine Blood (Negative) Urine Nitrite (Negative) Urine Bilirubin (Negative) Urine Urobilinogen (<2.0) mg/dL Ur Leukocyte Esterase (Negative) Urine RBC (0-5) /hpf Urine WBC (0-5) /hpf Ur Squamous Epith Cells (0-4) /hpf Urine Mucus (None) /hpf Urine HCG, Qual (Not Detectd) Disposition Clinical Impression: Abdominal cramping, Abdominal pain Disposition: HOME SELF-CARE Condition: Good Instructions: Abdominal Pain (ED) Additional Instructions: Please use over the counter medication as discussed. Please follow-up with family doctor in the next 2 days. Please return to emergency room if the symptoms increase or worsen or for any other concerns. Is patient prescribed a controlled substance at d/c from ED?: No Referrals: Brett Rhodes MD [Primary Care Provider] - 1-2 days Anshul Tan MD [STAFF PHYSICIAN] - 1-2 days Time of Disposition: 15:34
--- NOTE | 2017-11-12 14:28 | US ---
EXAMINATION TYPE: US abdomen APPY DATE OF EXAM: 11/12/2017 COMPARISON: CT abdomen and pelvis March 16, 2016 CLINICAL HISTORY: pain. Right flank pain and nausea x couple days, gotten worse today APPENDIX AP Diameter (normal < 6mm): 5.1 mm Measured outer wall to outer wall. Is the appendix seen in its entirety from the proximal cecum to distal end: elongated hypoechoic str ucture in RLQ, possible normal appearing appendix Is the appendix compressible: yes Does the appendix wall appear hypervascular: no Is an appendicolith present: no Is there inflammatory changes or free fluid present: no Portions of normal-appearing appendix felt identified on images saved. IMPRESSION: No convincing ultrasound evidence for acute appendicitis.
[2017-11-12 14:54] LABS: Appearance,Urine Cloudy (Clear); Bilirubin,Urine Negative (Negative); Blood,Urine Large (Negative); Color,Urine Yellow; Glucose,Urine (UA) Negative (Negative); Ketones,Urine Negative (Negative); Leukocyte Esterase,Urine Small (Negative); Mucus,Urine Rare /hpf; Nitrite,Urine Negative (Negative); Protein,Urine Negative (Negative); RBC,Urine 1 /hpf (0-5); Specific Gravity,Urine 1.015 (1.001-1.035); Squamous Epithelial Cell,Urine 7 /hpf (0-4); Urobilinogen,Urine <2.0 mg/dL (<2.0); WBC,Urine 7 /hpf (0-5)
--- NOTE | 2017-11-12 15:01 | US ---
EXAMINATION TYPE: US transvaginal DATE OF EXAM: 11/12/2017 COMPARISON: CT abdomen and pelvis March 16, 2016. Prior pelvic ultrasound November 08, 2014 CLINICAL HISTORY: pelvic pain. Right flank pain and nausea x couple days, gotten worse today, history of right ovarian cyst removed 13 years ago, 0 TECHNIQUE: Transvaginal ER exam. Date of LMP: 10/10/2017 EXAM MEASUREMENTS: Uterus: 7.7 x 4.1 x 4.7 cm Endometrial Stripe: 1.2 cm Right Ovary: 3.2 x 2.1 x 2.3 cm. Left Ovary: 2.7 x 2.0 x 2.6 cm 1. Uterus: anteverted, multiple nabothian cysts 2. Endometrium: wnl 3. Right Ovary: multiple follicles 4. Left Ovary: multiple follicles Spectral, color and waveform doppler imaging shows good arterial flow within the ovaries and good v enous flow within the right ovary, unable to obtain venous flow within the left ovary. 5. Bilateral Adnexa: wnl 6. Posterior cul-de-sac: wnl Some tiny nabothian cysts are noted in the cervix. No suspicious adnexal or ovarian lesions identifie d. IMPRESSION: No suspicious findings identified to account for patient's symptoms.
[2017-11-12 15:29] LABS: Basophils % (A) 0 %; Eosinophils # (A) 0.1 k/uL (0-0.7); Eosinophils % (A) 1 %; HCT 44.5 % (34.0-46.0); HGB 15.3 gm/dL (11.4-16.0); Lymphocytes # (A) 1.6 k/uL (1.0-4.8); Lymphocytes % (A) 22 %; MCH 29.5 pg (25.0-35.0); MCHC 34.3 g/dL (31.0-37.0); MCV 86.2 fL (80.0-100.0); Mean Platelet Volume 7.9; Monocytes # (A) 0.3 k/uL (0-1.0); Monocytes % (A) 5 %; Neutrophils # (A) 4.8 k/uL (1.3-7.7); Neutrophils % (A) 69 %; Platelet Count 148 k/uL (150-450); RBC 5.16 m/uL (3.80-5.40); RDW 12.4 % (11.5-15.5)
[2017-11-12 15:43] LABS: ALT 86 U/L (9-52); AST 39 U/L (14-36); Albumin 4.4 g/dL (3.5-5.0); Alkaline Phosphatase 115 U/L (38-126); Anion Gap 11 mmol/L; Blood Urea Nitrogen 13 mg/dL (7-17); Calcium 9.5 mg/dL (8.4-10.2); Carbon Dioxide 24 mmol/L (22-30); Chloride 106 mmol/L (98-107); Glucose 78 mg/dL (74-99); Potassium 4.1 mmol/L (3.5-5.1); Sodium 141 mmol/L (137-145); Total Bilirubin 0.9 mg/dL (0.2-1.3); Total Protein 7.5 g/dL (6.3-8.2)
[2017-11-12] MEDS ORDERED: ACETAMINOPHEN TAB 325 MG TAB PO STA (16:00)
[2017-11-12 16:45] VITALS: BP 125/78; PULSE 76; RESP 16; TEMP 98
== END 2017-11-12 16:44 | disposition home or self-care (01) ==
LOC: EC 12:35
DX: R10.2 Pelvic and perineal pain (principal); Z32.02 Encounter for pregnancy test, result negative; N93.9 Abnormal uterine and vaginal bleeding, unspecified; M54.9 Dorsalgia, unspecified; N83.201 Unspecified ovarian cyst, right side; N83.202 Unspecified ovarian cyst, left side; G40.909 Epilepsy, unspecified, not intractable, without status epilepticus; Z79.899 Other long term (current) drug therapy; Z98.890 Other specified postprocedural states
CPT/HCPCS: 36415; 76705; 76830; 80053; 81001; 81025; 85025; 93975; 99284

== ENCOUNTER 2018-01-22 13:17 | Emergency (ER) | payer BC ==
[2018-01-22 13:28] VITALS: TEMP 98.4
[2018-01-22] MEDS ORDERED: ONDANSETRON 4 MG/2 ML VIAL IVP STA (13:52)
[2018-01-22] MEDS ORDERED: SODIUM CHLORIDE 0.9% 1,000 ML IV STA (13:53)
[2018-01-22 14:29] LABS: Anion Gap 12 mmol/L; Blood Urea Nitrogen 15 mg/dL (7-17); Calcium 9.7 mg/dL (8.4-10.2); Carbon Dioxide 20 mmol/L (22-30); Chloride 106 mmol/L (98-107); Glucose 78 mg/dL (74-99); Magnesium 1.7 mg/dL (1.6-2.3); Potassium 4.1 mmol/L (3.5-5.1); Sodium 138 mmol/L (137-145)
[2018-01-22 14:32] LABS: Appearance,Urine Cloudy (Clear); Bacteria,Urine Rare /hpf; Bilirubin,Urine Negative (Negative); Blood,Urine Trace (Negative); Color,Urine Yellow; Glucose,Urine (UA) Negative (Negative); Ketones,Urine 4+ (Negative); Leukocyte Esterase,Urine Small (Negative); Mucus,Urine Few /hpf; Nitrite,Urine Negative (Negative); PH, Urine 5.5 (5.0-8.0); Protein,Urine Trace (Negative); RBC,Urine 2 /hpf (0-5); Specific Gravity,Urine 1.028 (1.001-1.035); Squamous Epithelial Cell,Urine 12 /hpf (0-4); Urobilinogen,Urine <2.0 mg/dL (<2.0); WBC,Urine 7 /hpf (0-5)
--- NOTE | 2018-01-22 17:39 | ED ---
General Adult HPI - General Chief complaint: Nausea/Vomiting/Diarrhea Stated complaint: /vomiting Source: patient Mode of arrival: ambulatory Limitations: no limitations - History of Present Illness Initial comments: Dictation was produced using [employer] dictation software. please excuse any grammatical, word or spelling errors. Chief Complaint: 27-year-old female who is presents with nausea and vomiting. History of Present Illness: Patient is a 27-year-old female who is presents with nausea vomiting. Patient has past medical history of seizures for which she takes Keppra. Her seizures have been well controlled. Patient states that she's been nauseous for approximately 3 days. She was started on Ticlid just yesterday however today she was still having significant nausea and vomiting. With this time The ROS documented in this emergency department record has been reviewed and confirmed by me. Those systems with pertinent positive or negative responses have been documented in the HPI. All other systems are other negative and/or noncontributory. - Related Data Home Medications Medication Instructions Recorded Confirmed levETIRAcetam 1,000 mg PO Q12HR 11/12/17 01/22/18 Doxylamine Succinate [Unisom] 25 mg PO HS 01/22/18 01/22/18 Asm-Emvb-Ebznm Acid 1 cap PO DAILY 01/22/18 01/22/18 [-U Capsule (formulary)] Pyridoxine [Vitamin B-6] 50 mg PO DAILY 01/22/18 01/22/18 Previous Rx's Medication Instructions Recorded Cephalexin [Keflex] 500 mg PO Q6HR 5 Days #20 cap 01/22/18 Allergies Allergy/AdvReac Type Severity Reaction Status Date / Time No Known Allergies Allergy Verified 01/22/18 15:14 Review of Systems ROS Statement: Those systems with pertinent positive or pertinent negative responses have been documented in the HPI. ROS Other: All systems not noted in ROS Statement are negative. Past Medical History Past Medical History: Seizure Disorder Additional Past Medical History / Comment(s): ovarian cyst, heart palpitations History of Any Multi-Drug Resistant Organisms: None Reported Past Surgical History: Adenoidectomy Additional Past Surgical History / Comment(s): ovarian cyst removed Past Psychological History: No Psychological Hx Reported Smoking Status: Never smoker Past Alcohol Use History: Occasional Past Drug Use History: None Reported General Exam - General Exam Comments Initial Comments: PHYSICAL EXAM: General Impression: Alert and oriented x3, not in acute distress HEENT: Normocephalic atraumatic, extra-ocular movements intact, pupils equal and reactive to light bilaterally, mucous membranes moist. Cardiovascular: Heart regular rate and rhythm, S1&S2 audible, no murmurs, rubs or gallops Chest: Lungs clear to auscultation bilaterally, no rhonchi, no wheeze, no rales Abdomen: Bowel sounds present, abdomen soft, non-tender, non-distended, no organomegaly Musculoskeletal: Pulses present and equal in all extremities, no peripheral edema Motor: Power 5/5 bilaterally, no focal deficits noted Neurological: CN II-XII grossly intact, no focal motor or sensory deficits noted Skin: Intact with no visualized rashes Psych: Normal affect and mood Limitations: no limitations Course Vital Signs 01/22/18 13:25 Temperature 98.4 F Pulse Rate 100 Respiratory 18 Rate Blood Pressure 112/66 O2 Sat by Pulse 100 Oximetry Medical Decision Making - Medical Decision Making ED course: 27-year-old female presents with nausea vomiting vital signs upon arrival are within acceptable limits. Return evaluation obtained. No actual derangement. Urinalysis shows findings to suggest significant dehydration and urinary tract infection. Patient given 1 g of ceftriaxone. Patient be given prescription for Keflex. She is told to continue take antinausea medications prescribed by [employer] DES[employer]. Patient tolerating by mouth at bedside. She feels well and is told to continue hydration at home. - Lab Data Result diagrams: 01/22/18 13:56 Lab Results 01/22/18 01/22/18 01/22/18 Range/Units 13:56 13:56 14:01 Sodium 138 (137-145) mmol/L Potassium 4.1 (3.5-5.1) mmol/L Chloride 106 (98-107) mmol/L Carbon Dioxide 20 L (22-30) mmol/L Anion Gap 12 mmol/L BUN 15 (7-17) mg/dL Creatinine 0.51 L (0.52-1.04) mg/dL Est GFR (CKD-EPI)AfAm >90 (>60 ml/min/1.73 sqM) Est GFR (CKD-EPI)NonAf >90 (>60 ml/min/1.73 sqM) Glucose 78 (74-99) mg/dL Calcium 9.7 (8.4-10.2) mg/dL Magnesium 1.7 (1.6-2.3) mg/dL Urine Color Yellow Urine Appearance Cloudy H (Clear) Urine pH 5.5 (5.0-8.0) Ur Specific [place] 1.028 (1.001-1.035) Urine Protein Trace H (Negative) Urine Glucose (UA) Negative (Negative) Urine Ketones 4+ H (Negative) Urine Blood Trace H (Negative) Urine Nitrite Negative (Negative) Urine Bilirubin Negative (Negative) Urine Urobilinogen <2.0 (<2.0) mg/dL Ur Leukocyte Esterase Small H (Negative) Urine RBC 2 (0-5) /hpf Urine WBC 7 H (0-5) /hpf Ur Squamous Epith Cells 12 H (0-4) /hpf Urine Bacteria Rare H (None) /hpf Urine Mucus Few H (None) /hpf Urine HCG, Qual Detected (Not Detectd) Disposition Clinical Impression: Nausea and vomiting during Disposition: HOME SELF-CARE Condition: Good Instructions: Acute Nausea and Vomiting (ED) Prescriptions: Cephalexin [Keflex] 500 mg PO Q6HR 5 Days #20 cap Is patient prescribed a controlled substance at d/c from ED?: No Referrals: Brett Rhodes MD [Primary Care Provider] - 1-2 days Time of Disposition: 17:39
[2018-01-22 18:30] VITALS: BP 102/70; PULSE 83; RESP 16
== END 2018-01-22 17:57 | disposition home or self-care (01) ==
LOC: EC 13:17
DX: O21.9 Vomiting of pregnancy, unspecified (principal); O99.89 Other specified diseases and conditions complicating pregnancy, childbirth and the puerperium; R19.7 Diarrhea, unspecified; O99.351 Diseases of the nervous system complicating pregnancy, first trimester; G40.909 Epilepsy, unspecified, not intractable, without status epilepticus; Z87.42 Personal history of other diseases of the female genital tract; Z79.899 Other long term (current) drug therapy; Z3A.01 Less than 8 weeks gestation of pregnancy
CPT/HCPCS: 36415; 80048; 83735; 81001; 81025; 87040; 99284; 96365; 96375; 96361; J2405; J0696

== ENCOUNTER 2018-01-27 11:06 | Emergency (ER) | payer BC ==
[2018-01-27 11:15] VITALS: RESP 18; TEMP 97.8
[2018-01-27] MEDS ORDERED: METOCLOPRAMIDE 5 MG/ML 2 ML VIAL IVP STA (11:49)
[2018-01-27] MEDS ORDERED: SODIUM CHLORIDE 0.9% 2,000 ML IV STA (11:49)
--- NOTE | 2018-01-27 11:53 | ED ---
Nausea/Vomiting/Diarrhea HPI - General Chief complaint: Nausea/Vomiting/Diarrhea Stated complaint: VOMITING 7 WEEKS Time Seen by Provider: 01/27/18 11:21 Source: patient, family, RN notes reviewed Mode of arrival: ambulatory Limitations: no limitations - History of Present Illness Initial comments: 27-year-old female presents to the emergency Department with chief complaint of nausea vomiting . Patient states she is approximate 7 weeks 4 days . Patient states she has not seen [facility]EL[facility]. Patient states she's had bouts with emesis ever since she found out she was . Patient has been seen in emergency department for this. She denies any vaginal bleeding or vaginal discharge. She states that she feels dehydrated. She did contact her [facility] APPLICATION DEVELOPER that she is supposed to be seen they told her to try B6 and Unisom. Patient states she vomited this up. Patient denies fever, chills, headache, dizziness, URI symptoms. Patient is A0 - Related Data Home Medications Medication Instructions Recorded Confirmed levETIRAcetam 1,000 mg PO Q12HR 11/12/17 01/27/18 Doxylamine Succinate [Unisom] 25 mg PO HS 01/22/18 01/27/18 Czo-Nizx-Luvvb Acid 1 cap PO DAILY 01/22/18 01/27/18 [-U Capsule (formulary)] Pyridoxine [Vitamin B-6] 50 mg PO DAILY 01/22/18 01/27/18 Previous Rx's Medication Instructions Recorded Cephalexin [Keflex] 500 mg PO Q6HR 5 Days #20 cap 01/22/18 Allergies Allergy/AdvReac Type Severity Reaction Status Date / Time No Known Allergies Allergy Verified 01/27/18 11:44 Review of Systems ROS Statement: Those systems with pertinent positive or pertinent negative responses have been documented in the HPI. ROS Other: All systems not noted in ROS Statement are negative. Past Medical History Past Medical History: Seizure Disorder Additional Past Medical History / Comment(s): ovarian cyst, heart palpitations History of Any Multi-Drug Resistant Organisms: None Reported Past Surgical History: Adenoidectomy Additional Past Surgical History / Comment(s): ovarian cyst removed Past Psychological History: No Psychological Hx Reported Smoking Status: Never smoker Past Alcohol Use History: Occasional Past Drug Use History: None Reported General Exam Limitations: no limitations General appearance: alert, in no apparent distress Head exam: Present: atraumatic, normocephalic, normal inspection Eye exam: Present: normal appearance, PERRL, EOMI. Absent: scleral icterus, conjunctival injection, periorbital swelling ENT exam: Present: normal exam, normal oropharynx, mucous membranes moist, TM's normal bilaterally Neck exam: Present: normal inspection, full ROM. Absent: tenderness, meningismus, lymphadenopathy Respiratory exam: Present: normal lung sounds bilaterally. Absent: respiratory distress, wheezes, rales, rhonchi, stridor Cardiovascular Exam: Present: regular rate, normal rhythm, normal heart sounds. Absent: systolic murmur, diastolic murmur, rubs, gallop, clicks GI/Abdominal exam: Present: soft, normal bowel sounds. Absent: distended, tenderness, guarding, rebound, rigid Neurological exam: Present: alert, oriented X3, CN II-XII intact Skin exam: Present: warm, dry, intact, normal color. Absent: rash Course Vital Signs 01/27/18 01/27/18 11:11 12:00 Temperature 97.8 F Pulse Rate 91 69 Respiratory 18 18 Rate Blood Pressure 128/81 129/79 O2 Sat by Pulse 100 Oximetry Medical Decision Making - Medical Decision Making 27-year-old female presented for nausea vomiting in . Patient did have ultrasound, lab work and urinalysis today. Patient is mildly dehydrated. She was given 2 L of fluid in which she states she feels improved. Patient does has resolved. Patient will follow [employer]EL[employer]. Return parameters were discussed. Patient was able tolerate crackers - Lab Data Result diagrams: 01/27/18 11:45 01/27/18 11:45 Lab Results 01/27/18 01/27/18 01/27/18 Range/Units 11:45 11:45 11:45 WBC 8.2 (3.8-10.6) k/uL RBC 4.90 (3.80-5.40) m/uL Hgb 14.7 (11.4-16.0) gm/dL Hct 41.9 (34.0-46.0) % MCV 85.6 (80.0-100.0) fL MCH 30.1 (25.0-35.0) pg MCHC 35.1 (31.0-37.0) g/dL RDW 12.5 (11.5-15.5) % Plt Count 166 (150-450) k/uL Neutrophils % 74 % Lymphocytes % 17 % Monocytes % 5 % Eosinophils % 0 % Basophils % 0 % Neutrophils # 6.1 (1.3-7.7) k/uL Lymphocytes # 1.4 (1.0-4.8) k/uL Monocytes # 0.4 (0-1.0) k/uL Eosinophils # 0.0 (0-0.7) k/uL Basophils # 0.0 (0-0.2) k/uL Sodium 140 (137-145) mmol/L Potassium 3.9 (3.5-5.1) mmol/L Chloride 104 (98-107) mmol/L Carbon Dioxide 22 (22-30) mmol/L Anion Gap 14 mmol/L BUN 15 (7-17) mg/dL Creatinine 0.54 (0.52-1.04) mg/dL Est GFR (CKD-EPI)AfAm >90 (>60 ml/min/1.73 sqM) Est GFR (CKD-EPI)NonAf >90 (>60 ml/min/1.73 sqM) Glucose 78 (74-99) mg/dL Calcium 9.9 (8.4-10.2) mg/dL Total Bilirubin 1.1 (0.2-1.3) mg/dL AST 25 (14-36) U/L ALT 50 (9-52) U/L Alkaline Phosphatase 71 (38-126) U/L Total Protein 7.7 (6.3-8.2) g/dL Albumin 4.6 (3.5-5.0) g/dL Lipase 72 (23-300) U/L Urine Color Yellow Urine Appearance Cloudy H (Clear) Urine pH 6.0 (5.0-8.0) Ur Specific [place] 1.025 (1.001-1.035) Urine Protein 1+ H (Negative) Urine Glucose (UA) Negative (Negative) Urine Ketones 4+ H (Negative) Urine Blood Trace H (Negative) Urine Nitrite Negative (Negative) Urine Bilirubin Negative (Negative) Urine Urobilinogen <2.0 (<2.0) mg/dL Ur Leukocyte Esterase Trace H (Negative) Urine RBC 4 (0-5) /hpf Urine WBC 6 H (0-5) /hpf Ur Squamous Epith Cells 12 H (0-4) /hpf Urine Bacteria Rare H (None) /hpf Urine Mucus Many H (None) /hpf Disposition Clinical Impression: Nausea and vomiting during , Dehydration Disposition: HOME SELF-CARE Condition: Stable Instructions: Nausea and Vomiting in (ED) Additional Instructions: Please return to the Emergency Department if symptoms worsen or any other concerns. Is patient prescribed a controlled substance at d/c from ED?: No Referrals: Brett Rhodes MD [Primary Care Provider] - 1-2 days Time of Disposition: 13:23
[2018-01-27 12:11] LABS: Basophils % (A) 0 %; Eosinophils % (A) 0 %; HCT 41.9 % (34.0-46.0); HGB 14.7 gm/dL (11.4-16.0); Lymphocytes # (A) 1.4 k/uL (1.0-4.8); Lymphocytes % (A) 17 %; MCH 30.1 pg (25.0-35.0); MCHC 35.1 g/dL (31.0-37.0); MCV 85.6 fL (80.0-100.0); Mean Platelet Volume 8.1; Monocytes # (A) 0.4 k/uL (0-1.0); Monocytes % (A) 5 %; Neutrophils # (A) 6.1 k/uL (1.3-7.7); Neutrophils % (A) 74 %; Platelet Count 166 k/uL (150-450); RDW 12.5 % (11.5-15.5); WBC 8.2 k/uL (3.8-10.6)
[2018-01-27 12:18] LABS: Appearance,Urine Cloudy (Clear); Bacteria,Urine Rare /hpf; Bilirubin,Urine Negative (Negative); Blood,Urine Trace (Negative); Color,Urine Yellow; Glucose,Urine (UA) Negative (Negative); Ketones,Urine 4+ (Negative); Leukocyte Esterase,Urine Trace (Negative); Mucus,Urine Many /hpf; Nitrite,Urine Negative (Negative); Protein,Urine 1+ (Negative); RBC,Urine 4 /hpf (0-5); Specific Gravity,Urine 1.025 (1.001-1.035); Squamous Epithelial Cell,Urine 12 /hpf (0-4); Urobilinogen,Urine <2.0 mg/dL (<2.0); WBC,Urine 6 /hpf (0-5)
[2018-01-27 12:23] LABS: ALT 50 U/L (9-52); AST 25 U/L (14-36); Albumin 4.6 g/dL (3.5-5.0); Alkaline Phosphatase 71 U/L (38-126); Anion Gap 14 mmol/L; Blood Urea Nitrogen 15 mg/dL (7-17); Calcium 9.9 mg/dL (8.4-10.2); Carbon Dioxide 22 mmol/L (22-30); Chloride 104 mmol/L (98-107); Glucose 78 mg/dL (74-99); Lipase 72 U/L (23-300); Potassium 3.9 mmol/L (3.5-5.1); Sodium 140 mmol/L (137-145); Total Bilirubin 1.1 mg/dL (0.2-1.3); Total Protein 7.7 g/dL (6.3-8.2)
--- NOTE | 2018-01-27 12:42 | US ---
EXAMINATION TYPE: Transabdominal DATE OF EXAM: 05/25/17 COMPARISON: NONE CLINICAL HISTORY: Vomiting EXAM PERFORMED: Transabdominal (TA) EXAM MEASUREMENTS: GESTATIONAL AGE / DATING Physician Established: Not yet established Dates by LMP: (7 weeks/1 days) EDC: 09/14/18 Dates by First Scan: No previous this is first scan Dates by Current Scan for: (6 weeks/1 days) EDC: 09/21/18 MATERNAL ANATOMY Uterus: 8.9 x 5.2 x 7.2cm Right Ovary: 2.4 x 1.6 x 1.8cm Left Ovary: 2.4 x 2.5 x 2.5 Post CDS / Adnexa: wnl Presence of free fluid: no Presence of corpus luteal cyst: possible measuring 1.3 x 1.3 x 1.3cm GESTATION / SURVEY CRL: 0.5 (6 weeks/1 days) Yolk Sac (normal less than 6mm): 2mm Heart Rate: 119 bpm Rhythm: Normal IUP: Live IUP Date of LMP: 12/08/17 There is a questionable small subchorionic hemorrhage occupying less than 25% the diameter of the ges tational sac seen on a single image only. IMPRESSION: Single live intrauterine with a sonographic age of 6 weeks and 1 day and estimated date of delivery of 09/21/2018 with questionable small subchorionic hemorrhage of less than 25% the gestationa l sac diameter is seen on a single image only.
[2018-01-27 13:35] LABS: HCG,Quantitative Serum 91651.3 mIU/mL
[2018-01-27 15:24] VITALS: BP 84/47; PULSE 86
== END 2018-01-27 15:23 | disposition home or self-care (01) ==
LOC: EC 11:06
DX: O21.9 Vomiting of pregnancy, unspecified (principal); O99.281 Endocrine, nutritional and metabolic diseases complicating pregnancy, first trimester; E86.0 Dehydration; O99.351 Diseases of the nervous system complicating pregnancy, first trimester; G40.909 Epilepsy, unspecified, not intractable, without status epilepticus; Z79.899 Other long term (current) drug therapy; Z3A.01 Less than 8 weeks gestation of pregnancy
CPT/HCPCS: 99284; 96374; 96361 ×3; 36415; 80053; 83690; 85025; 81001; 84702; 76801; J2765

== ENCOUNTER 2018-01-31 16:28 | Emergency (ER) | payer BC ==
[2018-01-31 17:24] VITALS: RESP 18
[2018-01-31] MEDS ORDERED: ONDANSETRON 4 MG/2 ML VIAL IVP STA (18:43)
[2018-01-31] MEDS ORDERED: SODIUM CHLORIDE 0.9% 2,000 ML IV STA (18:43)
[2018-01-31] MEDS ORDERED: FAMOTIDINE 20 MG/2 ML VIAL IV STA (18:44)
--- NOTE | 2018-01-31 18:47 | ED ---
General Adult HPI - General Chief complaint: Nausea/Vomiting/Diarrhea Stated complaint: 7 wks preg/vomiting Time Seen by Provider: 01/31/18 18:31 Source: patient, RN notes reviewed Mode of arrival: ambulatory Limitations: no limitations - History of Present Illness Initial comments: Patient is a pleasant 7-year-old female presenting to the emergency department with nausea vomiting. Patient has been experiencing symptoms and she is found she was . Patient is approximately 7 weeks gravid. Patient has vomited up to 10 times today. Patient still feels nauseated. No abdominal pain. No pelvic pain. No vaginal bleeding or discharge. Patient does have an appointment to see Dr. Tan tomorrow. Patient is concerned that her urine is appearing darker than normal. No dysuria. - Related Data Home Medications Medication Instructions Recorded Confirmed levETIRAcetam 1,000 mg PO Q12HR 11/12/17 01/31/18 Zjv-Icje-Mtpzn Acid 1 cap PO DAILY 01/22/18 01/31/18 [-U Capsule (formulary)] Allergies Allergy/AdvReac Type Severity Reaction Status Date / Time cephalexin [From Keflex] AdvReac Nausea & Verified 01/31/18 19:00 Vomiting & Diarrhea Review of Systems ROS Statement: Those systems with pertinent positive or pertinent negative responses have been documented in the HPI. ROS Other: All systems not noted in ROS Statement are negative. Constitutional: Denies: fever Eyes: Denies: eye pain ENT: Denies: ear pain Respiratory: Denies: cough Cardiovascular: Denies: chest pain Endocrine: Denies: as per HPI Gastrointestinal: Reports: nausea, vomiting. Denies: abdominal pain Genitourinary: Denies: dysuria Musculoskeletal: Denies: back pain Skin: Denies: rash Neurological: Denies: weakness Past Medical History Past Medical History: Seizure Disorder Additional Past Medical History / Comment(s): ovarian cyst, heart palpitations History of Any Multi-Drug Resistant Organisms: None Reported Past Surgical History: Adenoidectomy Additional Past Surgical History / Comment(s): ovarian cyst removed Past Psychological History: No Psychological Hx Reported Smoking Status: Never smoker Past Alcohol Use History: Occasional Past Drug Use History: None Reported General Exam Limitations: no limitations General appearance: alert, in no apparent distress Head exam: Present: atraumatic Eye exam: Present: normal appearance, PERRL ENT exam: Present: normal oropharynx Neck exam: Present: normal inspection Respiratory exam: Present: normal lung sounds bilaterally Cardiovascular Exam: Present: regular rate, normal rhythm GI/Abdominal exam: Present: soft. Absent: distended, tenderness Extremities exam: Present: normal inspection Neurological exam: Present: alert Psychiatric exam: Present: normal affect, normal mood Skin exam: Present: normal color Course Vital Signs 01/31/18 17:19 Temperature 97.8 F Pulse Rate 80 Respiratory 18 Rate Blood Pressure 119/76 O2 Sat by Pulse 100 Oximetry Medical Decision Making - Medical Decision Making Patient reevaluated and resting comfortably in bed. Symptoms have improved. Case discussed in detail with Dr. Martinez, covering for Dr. Tan who is comfortable with discharge and does want patient to follow up tomorrow as planned. She states liver enzymes will need to be rechecked. Patient is updated regarding results and plan. - Lab Data Result diagrams: 01/31/18 19:56 01/31/18 19:56 Lab Results 01/31/18 01/31/18 01/31/18 Range/Units 19:56 19:56 19:56 WBC 12.9 H (3.8-10.6) k/uL RBC 5.41 H (3.80-5.40) m/uL Hgb 16.1 H (11.4-16.0) gm/dL Hct 45.5 (34.0-46.0) % MCV 84.1 (80.0-100.0) fL MCH 29.9 (25.0-35.0) pg MCHC 35.5 (31.0-37.0) g/dL RDW 12.2 (11.5-15.5) % Plt Count 194 (150-450) k/uL Neutrophils % 76 % Lymphocytes % 15 % Monocytes % 5 % Eosinophils % 0 % Basophils % 0 % Neutrophils # 9.8 H (1.3-7.7) k/uL Lymphocytes # 2.0 (1.0-4.8) k/uL Monocytes # 0.6 (0-1.0) k/uL Eosinophils # 0.1 (0-0.7) k/uL Basophils # 0.0 (0-0.2) k/uL Sodium 140 (137-145) mmol/L Potassium 3.7 (3.5-5.1) mmol/L Chloride 105 (98-107) mmol/L Carbon Dioxide 20 L (22-30) mmol/L Anion Gap 15 mmol/L BUN 17 (7-17) mg/dL Creatinine 0.63 (0.52-1.04) mg/dL Est GFR (CKD-EPI)AfAm >90 (>60 ml/min/1.73 sqM) Est GFR (CKD-EPI)NonAf >90 (>60 ml/min/1.73 sqM) Glucose 93 (74-99) mg/dL Calcium 10.3 H (8.4-10.2) mg/dL Total Bilirubin 3.0 H (0.2-1.3) mg/dL AST 67 H (14-36) U/L ALT 132 H (9-52) U/L Alkaline Phosphatase 97 (38-126) U/L Total Protein 8.6 H (6.3-8.2) g/dL Albumin 4.9 (3.5-5.0) g/dL Amylase 52 (30-110) U/L Lipase 131 (23-300) U/L HCG, Quant 941157.0 mIU/mL Urine Color [place] Urine Appearance Cloudy H (Clear) Urine pH 6.0 (5.0-8.0) Ur Specific [place] 1.020 (1.001-1.035) Urine Protein 1+ H (Negative) Urine Glucose (UA) Negative (Negative) Urine Ketones 3+ H (Negative) Urine Blood Trace H (Negative) Urine Nitrite Negative (Negative) Urine Bilirubin 1+ H (Negative) Urine Urobilinogen 12.0 (<2.0) mg/dL Ur Leukocyte Esterase Large H (Negative) Urine RBC 3 (0-5) /hpf Urine WBC 13 H (0-5) /hpf Ur Squamous Epith Cells 13 H (0-4) /hpf Urine Bacteria Occasional H (None) /hpf Urine Mucus Many H (None) /hpf Disposition Clinical Impression: Hyperemesis gravidarum Disposition: HOME SELF-CARE Condition: Stable Instructions: Hyperemesis Gravidarum (ED) Additional Instructions: Please follow-up tomorrow with Dr. Tan as planned. Return for uncontrolled vomiting, abdominal pain, vaginal bleeding or pelvic pain, worsening symptoms or other concerns. You will need to have your liver enzymes rechecked in the near future. Is patient prescribed a controlled substance at d/c from ED?: No Referrals: Brett Rhodes MD [Primary Care Provider] - 1-2 days Anshul Tan MD [STAFF PHYSICIAN] - 1-2 days Time of Disposition: 21:51
[2018-01-31 20:08] LABS: Basophils % (A) 0 %; Eosinophils # (A) 0.1 k/uL (0-0.7); Eosinophils % (A) 0 %; HCT 45.5 % (34.0-46.0); HGB 16.1 gm/dL (11.4-16.0); Lymphocytes % (A) 15 %; MCH 29.9 pg (25.0-35.0); MCHC 35.5 g/dL (31.0-37.0); MCV 84.1 fL (80.0-100.0); Mean Platelet Volume 8.6; Monocytes # (A) 0.6 k/uL (0-1.0); Monocytes % (A) 5 %; Neutrophils # (A) 9.8 k/uL (1.3-7.7); Neutrophils % (A) 76 %; Platelet Count 194 k/uL (150-450); RBC 5.41 m/uL (3.80-5.40); RDW 12.2 % (11.5-15.5); WBC 12.9 k/uL (3.8-10.6)
[2018-01-31 20:10] LABS: Appearance,Urine Cloudy (Clear); Bacteria,Urine Occasional /hpf; Bilirubin,Urine 1+ (Negative); Blood,Urine Trace (Negative); Color,Urine Orange; Glucose,Urine (UA) Negative (Negative); Ketones,Urine 3+ (Negative); Leukocyte Esterase,Urine Large (Negative); Mucus,Urine Many /hpf; Nitrite,Urine Negative (Negative); Protein,Urine 1+ (Negative); RBC,Urine 3 /hpf (0-5); Squamous Epithelial Cell,Urine 13 /hpf (0-4); WBC,Urine 13 /hpf (0-5)
[2018-01-31 20:17] LABS: ALT 132 U/L (9-52); AST 67 U/L (14-36); Albumin 4.9 g/dL (3.5-5.0); Alkaline Phosphatase 97 U/L (38-126); Amylase 52 U/L (30-110); Anion Gap 15 mmol/L; Blood Urea Nitrogen 17 mg/dL (7-17); Calcium 10.3 mg/dL (8.4-10.2); Carbon Dioxide 20 mmol/L (22-30); Chloride 105 mmol/L (98-107); Glucose 93 mg/dL (74-99); Lipase 131 U/L (23-300); Potassium 3.7 mmol/L (3.5-5.1); Sodium 140 mmol/L (137-145); Total Protein 8.6 g/dL (6.3-8.2)
[2018-01-31 22:04] VITALS: BP 114/63; PULSE 67; TEMP 98.2
== END 2018-01-31 22:04 | disposition home or self-care (01) ==
LOC: EC 16:28
DX: O21.0 Mild hyperemesis gravidarum (principal); O99.351 Diseases of the nervous system complicating pregnancy, first trimester; G40.909 Epilepsy, unspecified, not intractable, without status epilepticus; Z3A.01 Less than 8 weeks gestation of pregnancy; Z79.899 Other long term (current) drug therapy; Z88.1 Allergy status to other antibiotic agents
CPT/HCPCS: 36415; 80053; 82150; 83690; 85025; 81001; 84702; 87086; 99284; 96374; 96375; 96361 ×2; J2405

== ENCOUNTER 2018-02-22 23:40 | Inpatient (IN) | payer BC ==
[2018-02-23] MEDS ORDERED: DEXTROSE 5%-0.45% NACL 1,000 ML IV ONE (01:43)
[2018-02-23] MEDS ORDERED: ACETAMINOPHEN TAB 325 MG TAB PO STA (01:44)
[2018-02-23 01:52] LABS: Basophils % (A) 0 %; Eosinophils % (A) 0 %; HCT 42.8 % (34.0-46.0); HGB 14.8 gm/dL (11.4-16.0); Lymphocytes # (A) 0.6 k/uL (1.0-4.8); Lymphocytes % (A) 5 %; MCH 30.1 pg (25.0-35.0); MCHC 34.7 g/dL (31.0-37.0); MCV 86.7 fL (80.0-100.0); Mean Platelet Volume 9.1; Monocytes # (A) 0.6 k/uL (0-1.0); Monocytes % (A) 4 %; Neutrophils # (A) 12.7 k/uL (1.3-7.7); Neutrophils % (A) 89 %; Platelet Count 136 k/uL (150-450); RBC 4.93 m/uL (3.80-5.40); RDW 12.6 % (11.5-15.5); WBC 14.3 k/uL (3.8-10.6)
[2018-02-23 02:02] LABS: ALT 26 U/L (9-52); AST 19 U/L (14-36); Albumin 4.4 g/dL (3.5-5.0); Alkaline Phosphatase 81 U/L (38-126); Amylase 38 U/L (30-110); Anion Gap 13 mmol/L; Blood Urea Nitrogen 11 mg/dL (7-17); Calcium 9.7 mg/dL (8.4-10.2); Carbon Dioxide 19 mmol/L (22-30); Chloride 105 mmol/L (98-107); Glucose 88 mg/dL (74-99); Lipase 38 U/L (23-300); Sodium 137 mmol/L (137-145); Total Bilirubin 1.3 mg/dL (0.2-1.3); Total Protein 7.6 g/dL (6.3-8.2)
[2018-02-23 02:04] LABS: Appearance,Urine Cloudy (Clear); Bacteria,Urine Occasional /hpf; Bilirubin,Urine Negative (Negative); Blood,Urine Moderate (Negative); Color,Urine Yellow; Glucose,Urine (UA) Negative (Negative); Ketones,Urine 4+ (Negative); Leukocyte Esterase,Urine Large (Negative); Mucus,Urine Moderate /hpf; Nitrite,Urine Positive (Negative); PH, Urine 5.5 (5.0-8.0); Protein,Urine 1+ (Negative); RBC,Urine 33 /hpf (0-5); Specific Gravity,Urine 1.016 (1.001-1.035); Squamous Epithelial Cell,Urine 16 /hpf (0-4); Urobilinogen,Urine <2.0 mg/dL (<2.0); WBC,Urine >182 /hpf (0-5)
--- NOTE | 2018-02-23 03:00 | US ---
EXAMINATION TYPE: US OB limited DATE OF EXAM: 02/23/2018 COMPARISON: NONE CLINICAL HISTORY: Pain. Pain EXAM PERFORMED: GESTATIONAL AGE / DATING Physician Established: (11 weeks/0 days) EDC: 09/14/2018 No growth performed on today?s study per ordering physician SURVEY HEART RATE: 176 bpm RHYTHM: Normal IMPRESSION: No complicating process seen.
--- NOTE | 2018-02-23 03:01 | US ---
EXAMINATION TYPE: US kidneys/renal and bladder DATE OF EXAM: 02/23/2018 COMPARISON: NONE CLINICAL HISTORY: Pain. Pain EXAM MEASUREMENTS: Right Kidney: 10.5 x 4.0 x 3.7 cm Left Kidney: 11.8 x 4.0 x 4.1 cm Right Kidney: No hydronephrosis or masses seen Left Kidney: No hydronephrosis or masses seen Bladder: Not fully distended Bilateral Jets seen: No There is no evidence for hydronephrosis at this point in time. No nephrolithiasis is seen. No fitz s are identified. The urinary bladder is anechoic. IMPRESSION: No evidence of renal stone or obstruction. Negative exam.
[2018-02-23] MEDS ORDERED: METOCLOPRAMIDE 5 MG/ML 2 ML VIAL IVP STA ×3 (03:57→06:31)
--- NOTE | 2018-02-23 04:00 | ED ---
Abdominal Pain HPI - General Chief Complaint: Abdominal Pain Stated Complaint: Back Pain Time Seen by Provider: 02/23/18 01:17 Source: patient Mode of arrival: ambulatory Limitations: no limitations - History of Present Illness Initial Comments: This patient is a 27-year-old woman who states she is approximately 11 weeks and presents to be evaluated for left flank pain. Symptoms have been going on for 1-2 days. The patient also notes that she may be constipated as she has not had a bowel movement in a couple of days. The patient does not believe she's had a fever however she has felt hot. She also has had a number of episodes of vomiting today. MD Complaint: abdominal pain Onset/Timin -: days(s) Location: LLQ, L flank Radiation: none Migration to: no migration Severity: moderate Quality: cramping, aching Consistency: constant Improves With: nothing Worsens With: nothing Associated Symptoms: dysuria - Related Data Home Medications Medication Instructions Recorded Confirmed Ogn-Vzwh-Lyxwi Acid 1 cap PO DAILY 01/22/18 02/23/18 [-U Capsule (formulary)] Ondansetron [Zofran] 4 mg PO Q8HR PRN 02/22/18 02/23/18 Allergies Allergy/AdvReac Type Severity Reaction Status Date / Time cephalexin [From Keflex] AdvReac Nausea & Verified 02/23/18 07:12 Vomiting & Diarrhea Review of Systems ROS Statement: Those systems with pertinent positive or pertinent negative responses have been documented in the HPI. ROS Other: All systems not noted in ROS Statement are negative. Constitutional: Reports: fever. Denies: chills Respiratory: Denies: cough, dyspnea Cardiovascular: Denies: chest pain, palpitations, edema Gastrointestinal: Reports: abdominal pain, nausea. Denies: vomiting, diarrhea, constipation Genitourinary: Reports: dysuria, frequency. Denies: hematuria, discharge, abnormal menses Musculoskeletal: Denies: back pain Skin: Denies: rash Neurological: Denies: headache, weakness, numbness Past Medical History Past Medical History: Seizure Disorder Additional Past Medical History / Comment(s): ovarian cyst, heart palpitations History of Any Multi-Drug Resistant Organisms: None Reported Past Surgical History: Adenoidectomy Additional Past Surgical History / Comment(s): ovarian cyst removed Past Psychological History: No Psychological Hx Reported Smoking Status: Never smoker Past Alcohol Use History: None Reported, Occasional Past Drug Use History: None Reported - Past Family History Mother Family Medical History: No Reported History General Exam Limitations: no limitations General appearance: alert, in no apparent distress Head exam: Present: atraumatic, normocephalic Eye exam: Present: normal appearance. Absent: scleral icterus, conjunctival injection ENT exam: Present: normal oropharynx Neck exam: Present: normal inspection Respiratory exam: Present: normal lung sounds bilaterally. Absent: respiratory distress, wheezes, rales, rhonchi, stridor Cardiovascular Exam: Present: normal rhythm, tachycardia, normal heart sounds. Absent: systolic murmur, diastolic murmur, rubs, gallop GI/Abdominal exam: Present: soft, normal bowel sounds. Absent: distended, tenderness, guarding, rebound, rigid Extremities exam: Present: normal inspection, normal capillary refill. Absent: pedal edema, calf tenderness Back exam: Present: normal inspection, CVA tenderness (L). Absent: CVA tenderness (R) Neurological exam: Present: alert Skin exam: Present: warm, dry, intact, normal color. Absent: rash Course Vital Signs 02/22/18 02/23/18 02/23/18 23:46 05:56 07:11 Temperature 99.7 F H 97.4 F L 97.6 F Pulse Rate 132 H 94 90 Respiratory 18 18 18 Rate Blood Pressure 119/75 103/63 113/73 O2 Sat by Pulse 100 97 98 Oximetry - Reevaluation(s) Reevaluation #1: 02/23/18 04:00 Worsening regarding the patient's Keflex ALLERGY reveals that she was given one time and had vomiting and that was recorded as an ALLERGY. She did not have any rash, itching, dyspnea or symptoms or signs suggestive of anaphylaxis. Medical Decision Making - Medical Decision Making Patient is 27-year-old woman with left flank pain, vomiting, and fever. Given that she is will admit for pyelonephritis as well as fact that she is not tolerating oral intake. Patient did receive antibiotics, fluids, antiemetics and is feeling a little better. Case discussed with her physician Dr. Rhodes who will admit. - Lab Data Result diagrams: 02/23/18 01:14 02/23/18 01:14 Lab Results 02/23/18 02/23/18 02/23/18 Range/Units 01:14 01:14 01:48 WBC 14.3 H (3.8-10.6) k/uL RBC 4.93 (3.80-5.40) m/uL Hgb 14.8 (11.4-16.0) gm/dL Hct 42.8 (34.0-46.0) % MCV 86.7 (80.0-100.0) fL MCH 30.1 (25.0-35.0) pg MCHC 34.7 (31.0-37.0) g/dL RDW 12.6 (11.5-15.5) % Plt Count 136 L (150-450) k/uL Neutrophils % 89 % Lymphocytes % 5 % Monocytes % 4 % Eosinophils % 0 % Basophils % 0 % Neutrophils # 12.7 H (1.3-7.7) k/uL Lymphocytes # 0.6 L (1.0-4.8) k/uL Monocytes # 0.6 (0-1.0) k/uL Eosinophils # 0.0 (0-0.7) k/uL Basophils # 0.0 (0-0.2) k/uL Sodium 137 (137-145) mmol/L Potassium 4.0 (3.5-5.1) mmol/L Chloride 105 (98-107) mmol/L Carbon Dioxide 19 L (22-30) mmol/L Anion Gap 13 mmol/L BUN 11 (7-17) mg/dL Creatinine 0.60 (0.52-1.04) mg/dL Est GFR (CKD-EPI)AfAm >90 (>60 ml/min/1.73 sqM) Est GFR (CKD-EPI)NonAf >90 (>60 ml/min/1.73 sqM) Glucose 88 (74-99) mg/dL Calcium 9.7 (8.4-10.2) mg/dL Total Bilirubin 1.3 (0.2-1.3) mg/dL AST 19 (14-36) U/L ALT 26 (9-52) U/L Alkaline Phosphatase 81 (38-126) U/L Total Protein 7.6 (6.3-8.2) g/dL Albumin 4.4 (3.5-5.0) g/dL Amylase 38 (30-110) U/L Lipase 38 (23-300) U/L Urine Color [place] Urine Appearance Cloudy H (Clear) Urine pH 5.5 (5.0-8.0) Ur Specific [place] 1.016 (1.001-1.035) Urine Protein 1+ H (Negative) Urine Glucose (UA) Negative (Negative) Urine Ketones 4+ H (Negative) Urine Blood Moderate H (Negative) Urine Nitrite Positive H (Negative) Urine Bilirubin Negative (Negative) Urine Urobilinogen <2.0 (<2.0) mg/dL Ur Leukocyte Esterase Large H (Negative) Urine RBC 33 H (0-5) /hpf Urine WBC >182 H (0-5) /hpf Urine WBC Clumps Few H (None) /hpf Ur Squamous Epith Cells 16 H (0-4) /hpf Urine Bacteria Occasional H (None) /hpf Urine Mucus Moderate H (None) /hpf Disposition Clinical Impression: Pyelonephritis affecting , Intractable vomiting with nausea Disposition: ADMITTED IP TO THIS [facility] Condition: Fair
[2018-02-23] MEDS ORDERED: NALOXONE 0.4 MG/ML 1 ML VIAL IV PRN (06:29)
[2018-02-23] MEDS ORDERED: ACETAMINOPHEN TAB 325 MG TAB PO PRN (06:29)
[2018-02-23] MEDS ORDERED: SODIUM CHLORIDE 0.9% 1,000 ML IV SCH (06:30)
[2018-02-23] MEDS ORDERED: METOCLOPRAMIDE 5 MG/ML 2 ML VIAL IVP PRN (06:31)
--- NOTE | 2018-02-23 07:58 | P.HPIM ---
History of Present Illness H&P Date: 02/23/18 Chief Complaint: Dysuria This is a 7-year-old white female who is 11 weeks who has developed dysuria and flank pain. Workup shows pallor nephritis and she's been placed on empiric antibiotic treatment. The patient has significant hyperemesis and is also admitted for appropriate hydration and symptomatically control. We will go ahead and consult obstetrical service. Otherwise she is resting comfortably at this time. Somewhat apprehensive. No significant fever or chills but there is flank pain and dysuria. Significant nausea and vomiting is also noted. Review of Systems Constitutional: Denies chills Eyes: denies blurred vision, denies pain Ears, nose, mouth and throat: Denies headache, Denies sore throat Cardiovascular: Denies chest pain, Denies shortness of breath Respiratory: Denies cough Gastrointestinal: Reports dyspepsia, Reports nausea, Reports vomiting Genitourinary: Denies dysuria, Denies hematuria Musculoskeletal: Denies myalgias Integumentary: Denies pruritus, Denies rash Neurological: Denies numbness, Denies weakness Past Medical History Past Medical History: Seizure Disorder Additional Past Medical History / Comment(s): ovarian cyst, heart palpitations History of Any Multi-Drug Resistant Organisms: None Reported Past Surgical History: Adenoidectomy Additional Past Surgical History / Comment(s): ovarian cyst removed Past Psychological History: No Psychological Hx Reported Smoking Status: Never smoker Past Alcohol Use History: None Reported, Occasional Past Drug Use History: None Reported Medications and Allergies Home Medications Medication Instructions Recorded Confirmed Type Ydc-Krqk-Xfkcp Acid 1 cap PO DAILY 01/22/18 02/23/18 History [-U Capsule (formulary)] Ondansetron [Zofran] 4 mg PO Q8HR PRN 02/22/18 02/23/18 History Allergies Allergy/AdvReac Type Severity Reaction Status Date / Time cephalexin [From Keflex] AdvReac Nausea & Verified 02/23/18 07:12 Vomiting & Diarrhea Physical Exam Vitals: Vital Signs Temp Pulse Pulse Resp BP BP Pulse Ox 02/23/18 07:36 98.9 F 122 H 16 121/66 100 02/23/18 07:11 97.6 F 90 18 113/73 98 02/23/18 05:56 97.4 F L 94 18 103/63 97 02/22/18 23:46 99.7 F H 132 H 18 119/75 100 Intake and Output 02/22/18 02/23/18 02/23/18 22:59 06:59 14:59 Other: Weight 93.894 kg - Constitutional General appearance: no acute distress - EENT Eyes: EOMI - Neck Neck: no lymphadenopathy - Respiratory Respiratory: bilateral: CTA - Cardiovascular Rhythm: regular Heart sounds: normal: S1, S2 Abnormal Heart Sounds: no S3 Gallop - Gastrointestinal General gastrointestinal: soft, no tenderness - Musculoskeletal Musculoskeletal: gait normal - Psychiatric Psychiatric: A&O x's 3, appropriate affect Results CBC & Chem 7: 02/23/18 01:14 02/23/18 01:14 Labs: Abnormal Lab Results - Last 24 Hours (Table) 02/23/18 02/23/18 02/23/18 Range/Units 01:14 01:14 01:48 WBC 14.3 H (3.8-10.6) k/uL Plt Count 136 L (150-450) k/uL Neutrophils # 12.7 H (1.3-7.7) k/uL Lymphocytes # 0.6 L (1.0-4.8) k/uL Carbon Dioxide 19 L (22-30) mmol/L Urine Appearance Cloudy H (Clear) Urine Protein 1+ H (Negative) Urine Ketones 4+ H (Negative) Urine Blood Moderate H (Negative) Urine Nitrite Positive H (Negative) Ur Leukocyte Esterase Large H (Negative) Urine RBC 33 H (0-5) /hpf Urine WBC >182 H (0-5) /hpf Urine WBC Clumps Few H (None) /hpf Ur Squamous Epith Cells 16 H (0-4) /hpf Urine Bacteria Occasional H (None) /hpf Urine Mucus Moderate H (None) /hpf Assessment and Plan (1) Intractable vomiting with nausea Current Visit: Yes Status: Acute Code(s): R11.2 - NAUSEA WITH VOMITING, UNSPECIFIED SNOMED Code(s): 779273754 (2) Pyelonephritis affecting Current Visit: Yes Status: Acute Code(s): O23.00 - INFECTIONS OF KIDNEY IN , UNSPECIFIED TRIMESTER SNOMED Code(s): 11138532 (3) Dehydration Current Visit: No Status: Acute Code(s): E86.0 - DEHYDRATION SNOMED Code(s ): 64559720 (4) Hyperemesis gravidarum Current Visit: No Status: Acute Code(s): O21.0 - MILD HYPEREMESIS GRAVIDARUM SNOMED Code(s): 44840333 Plan: Continue IV hydration with appropriate antibiotic treatment. Check CBC and CMP in a.m. Consult [facility]. If no better, consider infectious disease consultation. Await culture. Time with Patient: Less than 30
[2018-02-23] MEDS: LACTATED RINGERS 1,000 ML IV SCH ×3 (09:10→20:52)
[2018-02-23] MEDS: CEFEPIME 1 GM in SODIUM CHLORIDE 0.9% 50 ML IVPB SCH ×2 (09:11→20:48)
[2018-02-23] MEDS: ONDANSETRON 4 MG/2 ML VIAL IVP PRN (19:35)
--- NOTE | 2018-02-23 20:08 | P.OBCN ---
History of Present Illness Consult date: 02/23/18 Reason for consult: early problem Chief complaint: and pyelonephritis History of present illness: This patient is a pleasant 27-year-old 1 para 0 female estimated date of confinement 09/14/2018 estimated gestational age 11 weeks who is admitted this morning by Dr. Rhodes for treatment of pyelonephritis. Patient states that a couple days ago she began having left flank pain and some chills. Patient has had her first visit with me on February 01. is been complicated by significant nausea and vomiting and she did have some mild liver function elevation when she had a prolonged period of dehydration. These have subsequently normalized. Urinalysis here in the emergency department shows large white blood cells. Serum white blood cell count was 14.3 which is not particularly abnormal for . Patient denied any fevers at home but did have a temperature to 100 here. Patient has had some continued nausea and vomiting throughout the beginning of the . Review of Systems Constitutional: Reports as per HPI, Reports chills Gastrointestinal: Reports nausea, Reports vomiting Genitourinary: Reports Menstruation: Reports amenorrhea Past Medical History Past Medical History: Seizure Disorder Additional Past Medical History / Comment(s): Heart palpitations; patient had a chlamydial infection in November 2014. 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 History of Any Multi-Drug Resistant Organisms: None Reported Past Surgical History: Adenoidectomy Additional Past Surgical History / Comment(s): Exploratory laparotomy with right ovarian cystectomy March 2006. Past Anesthesia/Blood Transfusion Reactions: No Reported Reaction Past Psychological History: No Psychological Hx Reported Smoking Status: Never smoker Past Alcohol Use History: None Reported, Occasional Past Drug Use History: None Reported - Past Family History Mother Family Medical History: No Reported History Medications and Allergies Home Medications Medication Instructions Recorded Confirmed Type Zak-Hwfe-Ewxjl Acid 1 cap PO DAILY 01/22/18 02/23/18 History [-U Capsule (formulary)] Ondansetron [Zofran] 4 mg PO Q8HR PRN 02/22/18 02/23/18 History Allergies Allergy/AdvReac Type Severity Reaction Status Date / Time cephalexin [From Keflex] AdvReac Nausea & Verified 02/23/18 07:12 Vomiting & Diarrhea Exam Vital Signs Temp Pulse Pulse Resp BP BP Pulse Ox 01/02/19 16:00 99.3 F 114 H 16 100/60 02/23/18 12:00 100 F H 114 H 16 96/52 98 02/23/18 09:00 120 H 02/23/18 08:57 118 H 16 02/23/18 07:36 98.9 F 122 H 16 121/66 100 02/23/18 07:11 97.6 F 90 18 113/73 98 02/23/18 05:56 97.4 F L 94 18 103/63 97 02/22/18 23:46 99.7 F H 132 H 18 119/75 100 Intake and Output 02/23/18 02/23/18 02/23/18 06:59 14:59 22:59 Intake Total 1100 Balance 1100 Intake: Intake, IV Titration 1100 Amount Cefepime 1 gm In Sodium 100 Chloride 0.9% 50 ml @ 100 mls/hr IVPB Q12HR [facility] Rx #:[id number] Lactated Ringers 1,000 ml 1000 @ 150 mls/hr IV .Q6H40M [facility] Rx#:[id number] Other: Voiding Method Toilet # Voids 1 Weight 93.894 kg Exam is limited to the patient's abdomen and back. Abdomen is soft nontender. She localizes left flank pain. Results Ultrasound shows a viable . Ultrasound of the kidneys shows no evidence of hydronephrosis or renal calculi. Urinalysis is significant for large white blood cells. It does not appear that a urine culture was sent. Result Diagrams: 02/23/18 01:14 02/23/18 01:14 Abnormal Lab Results - Last 24 Hours (Table) 02/23/18 02/23/18 02/23/18 Range/Units 01:14 01:14 01:48 WBC 14.3 H (3.8-10.6) k/uL Plt Count 136 L (150-450) k/uL Neutrophils # 12.7 H (1.3-7.7) k/uL Lymphocytes # 0.6 L (1.0-4.8) k/uL Carbon Dioxide 19 L (22-30) mmol/L Urine Appearance Cloudy H (Clear) Urine Protein 1+ H (Negative) Urine Ketones 4+ H (Negative) Urine Blood Moderate H (Negative) Urine Nitrite Positive H (Negative) Ur Leukocyte Esterase Large H (Negative) Urine RBC 33 H (0-5) /hpf Urine WBC >182 H (0-5) /hpf Urine WBC Clumps Few H (None) /hpf Ur Squamous Epith Cells 16 H (0-4) /hpf Urine Bacteria Occasional H (None) /hpf Urine Mucus Moderate H (None) /hpf Assessment and Plan Assessment: This is a pleasant 27-year-old 1 para 0 female 11 weeks gestation with apparent pyelonephritis. Patient also has chronic nausea vomiting secondary to the . Patient is currently on IV antibiotics and IV hydration. Plan is to continue current treatment regimen with antibiotics. I did send a urine culture and sensitivity although the patient has already been on antibiotics. Pending on identification of the bacteria, discharge home on Keflex 500 mg 4 times a day for 7 days once afebrile and tolerating oral liquids. (1) Pyelonephritis affecting Current Visit: Yes Status: Acute Code(s): O23.00 - INFECTIONS OF KIDNEY IN , UNSPECIFIED TRIMESTER SNOMED Code(s): 26873304 (2) Dehydration Current Visit: No Status: Acute Code(s): E86.0 - DEHYDRATION SNOMED Code(s ): 25559783
[2018-02-23 23:24] LABS: Appearance,Urine Cloudy (Clear); Bilirubin,Urine Negative (Negative); Blood,Urine Small (Negative); Color,Urine Yellow; Glucose,Urine (UA) Negative (Negative); Ketones,Urine 2+ (Negative); Leukocyte Esterase,Urine Moderate (Negative); Mucus,Urine Occasional /hpf; Nitrite,Urine Negative (Negative); PH, Urine 6.5 (5.0-8.0); Protein,Urine Trace (Negative); RBC,Urine 9 /hpf (0-5); Specific Gravity,Urine 1.014 (1.001-1.035); Squamous Epithelial Cell,Urine 9 /hpf (0-4); WBC,Urine 43 /hpf (0-5)
--- NOTE | 2018-02-24 07:42 | P.PN ---
Subjective Progress Note Date: 02/24/18 Principal diagnosis: The patient is here essentially for pyelonephritis with hyperemesis. The patient is doing much better but still with some nausea. Abelardo is helping. But she is somewhat apprehensive because she still feels like she can't eat much. No other voiding difficulties. She seems to be having appropriate urination at this time given her Objective - Vital Signs Vital signs: Vital Signs Temp 98.8 F 02/24/18 04:00 Pulse 106 H 02/24/18 04:00 Resp 16 02/24/18 04:00 BP 108/63 02/24/18 04:00 Pulse Ox 98 02/23/18 12:00 Intake & Output 02/23/18 02/24/18 02/24/18 18:59 06:59 18:59 Intake Total 1100 1000 Balance 1100 1000 Intake: IV 1000 Lactated Ringers 1,000 ml 1000 @ 150 mls/hr IV .Q6H40M [facility] Rx#:[id number] Intake, IV Titration 1100 Amount Cefepime 1 gm In Sodium 100 Chloride 0.9% 50 ml @ 100 mls/hr IVPB Q12HR [facility] Rx #:[id number] Lactated Ringers 1,000 ml 1000 @ 150 mls/hr IV .Q6H40M [facility] Rx#:[id number] Other: Voiding Method Toilet # Voids 1 2 - Constitutional General appearance: Present: cooperative, no acute distress - EENT Eyes: Absent: abnormal pupil - Respiratory Respiratory: bilateral: CTA - Cardiovascular Rhythm: regular Heart sounds: normal: S1, S2 Abnormal Heart Sounds: Absent: S3 Gallop - Gastrointestinal General gastrointestinal: Present: soft. Absent: tenderness - Psychiatric Psychiatric: Present: A&O x's 3, appropriate affect, intact judgment & insight - Labs CBC & Chem 7: 02/23/18 01:14 02/23/18 01:14 Labs: Abnormal Lab Results - Last 24 Hours (Table) 02/23/18 Range/Units 23:00 Urine Appearance Cloudy H (Clear) Urine Protein Trace H (Negative) Urine Ketones 2+ H (Negative) Urine Blood Small H (Negative) Ur Leukocyte Esterase Moderate H (Negative) Urine RBC 9 H (0-5) /hpf Urine WBC 43 H (0-5) /hpf Urine WBC Clumps Rare H (None) /hpf Ur Squamous Epith Cells 9 H (0-4) /hpf Urine Mucus Occasional H (None) /hpf Assessment and Plan (1) Intractable vomiting with nausea Current Visit: Yes Status: Acute Code(s): R11.2 - NAUSEA WITH VOMITING, UNSPECIFIED SNOMED Code(s): 238134030 (2) Pyelonephritis affecting Current Visit: Yes Status: Acute Code(s): O23.00 - INFECTIONS OF KIDNEY IN , UNSPECIFIED TRIMESTER SNOMED Code(s): 98295577 (3) Dehydration Current Visit: No Status: Acute Code(s): E86.0 - DEHYDRATION SNOMED Code(s ): 43926948 (4) Hyperemesis gravidarum Current Visit: No Status: Acute Code(s): O21.0 - MILD HYPEREMESIS GRAVIDARUM SNOMED Code(s): 09933961 Plan: Decrease IV fluid today. Promote by mouth intake. Continue current regimen of antibiotic treatment. Check CBC and CMP in a.m. anticipate discharge in a.m. Time with Patient: Less than 30
[2018-02-24 08:10] LABS: MCH 29.9 pg (25.0-35.0); MCHC 34.4 g/dL (31.0-37.0); MCV 86.9 fL (80.0-100.0); Mean Platelet Volume 7.5; Platelet Count 103 k/uL (150-450); RBC 3.79 m/uL (3.80-5.40); RDW 13.4 % (11.5-15.5); WBC 7.3 k/uL (3.8-10.6)
[2018-02-24 08:11] LABS: HGB 11.3 gm/dL (11.4-16.0)
[2018-02-24 08:16] LABS: ALT 31 U/L (9-52); AST 16 U/L (14-36); Albumin 2.9 g/dL (3.5-5.0); Alkaline Phosphatase 78 U/L (38-126); Anion Gap 8 mmol/L; Blood Urea Nitrogen 8 mg/dL (7-17); Calcium 8.6 mg/dL (8.4-10.2); Carbon Dioxide 23 mmol/L (22-30); Chloride 106 mmol/L (98-107); Glucose 80 mg/dL (74-99); Potassium 3.6 mmol/L (3.5-5.1); Sodium 137 mmol/L (137-145); Total Bilirubin 1.1 mg/dL (0.2-1.3); Total Protein 5.6 g/dL (6.3-8.2)
[2018-02-24] MEDS: CEFEPIME 1 GM in SODIUM CHLORIDE 0.9% 50 ML IVPB SCH ×2 (09:13→20:45)
[2018-02-24] MEDS: LACTATED RINGERS 1,000 ML IV SCH ×2 (09:13→17:56)
[2018-02-24] MEDS: ONDANSETRON 4 MG/2 ML VIAL IVP PRN (15:39)
[2018-02-24 20:19] VITALS: RESP 16
[2018-02-25 07:26] VITALS: BP 108/69; PULSE 86; TEMP 98.4
[2018-02-25] MEDS: ONDANSETRON 4 MG/2 ML VIAL IVP PRN (07:30)
[2018-02-25] MEDS: LACTATED RINGERS 1,000 ML IV SCH (07:30)
[2018-02-25 07:35] LABS: ALT 23 U/L (9-52); AST 14 U/L (14-36); Albumin 2.9 g/dL (3.5-5.0); Alkaline Phosphatase 118 U/L (38-126); Anion Gap 6 mmol/L; Blood Urea Nitrogen 6 mg/dL (7-17); Calcium 8.7 mg/dL (8.4-10.2); Carbon Dioxide 23 mmol/L (22-30); Chloride 107 mmol/L (98-107); Glucose 71 mg/dL (74-99); Potassium 3.6 mmol/L (3.5-5.1); Sodium 136 mmol/L (137-145); Total Protein 5.7 g/dL (6.3-8.2)
[2018-02-25 08:30] LABS: HCT 31.9 % (34.0-46.0); HGB 11.2 gm/dL (11.4-16.0); MCH 30.4 pg (25.0-35.0); MCHC 35.1 g/dL (31.0-37.0); MCV 86.7 fL (80.0-100.0); Mean Platelet Volume 8.8; RBC 3.68 m/uL (3.80-5.40); RDW 12.4 % (11.5-15.5); WBC 4.8 k/uL (3.8-10.6)
[2018-02-25 08:48] LABS: Platelet Count 88 k/uL (150-450)
[2018-02-25] MEDS: CEFEPIME 1 GM in SODIUM CHLORIDE 0.9% 50 ML IVPB SCH (09:00)
--- NOTE | 2018-02-25 09:03 | P.DS ---
Providers Date of admission: 02/23/18 06:32 Attending physician: Brett Rhodes Consults: 02/23/18 08:10 Consult Physician Routine Consulting Provider: Anshul Tan Consult Reason/Comments: pyelo, 1st trimester Do you want consulting provider notified?: Yes Primary care physician: Brett Rhodes - Discharge Diagnosis(es) (1) Intractable vomiting with nausea Current Visit: Yes Status: Acute (2) Pyelonephritis affecting Current Visit: Yes Status: Acute (3) Dehydration Current Visit: No Status: Acute (4) Hyperemesis gravidarum Current Visit: No Status: Acute Hospital Course: This discharge summary 27-year-old patient admitted for pallor nephritis. She was placed on appropriate antibiotic treatment for the last several days and we'll discharged on Keflex per obstetrical service. The patient is tolerating diet and has still some hyperemesis gravidarum but this stabilizing. The patient will follow-up with me in one week. Patient Condition at Discharge: Fair Plan - Discharge Summary New Discharge Prescriptions: No Action Nld-Hxfp-Hwwca Acid [-U Capsule (formulary)] 1 cap PO DAILY Ondansetron [Zofran] 4 mg PO Q8HR PRN PRN Reason: Nausea Discharge Medication List Ana-Peub-Igtdt Acid [-U Capsule (formulary)] 1 cap PO DAILY 03/11 [History] Ondansetron [Zofran] 4 mg PO Q8HR PRN 02/22/18 [History] Follow up Appointment(s)/Referral(s): Brett Rhodes MD [Primary Care Provider] - 1 Week Discharge Disposition: HOME SELF-CARE
== END 2018-02-25 10:59 | disposition home or self-care (01) | DRG 832 ==
LOC: EC 23:40 → OBSVTOIN 02-23 06:32 → 4FBP 02-23 06:32 → UNDODISOB 02-25 10:59
PROVIDERS: ADMIT Family Medicine; ATTEND Family Medicine
DX: O21.0 Mild hyperemesis gravidarum (principal); O23.01 Infections of kidney in pregnancy, first trimester; G40.909 Epilepsy, unspecified, not intractable, without status epilepticus; O99.281 Endocrine, nutritional and metabolic diseases complicating pregnancy, first trimester; E86.0 Dehydration; O99.351 Diseases of the nervous system complicating pregnancy, first trimester; Z3A.11 11 weeks gestation of pregnancy; Z88.1 Allergy status to other antibiotic agents
CPT/HCPCS: 36415; 76770; 76815; 80053; 81001; 82150; 83690; 85025; 85027; 87086; 96361; 96365; 96375; 96376; 99285

== ENCOUNTER 2018-03-09 17:49 | Emergency (ER) | payer BC ==
[2018-03-09 17:59] VITALS: TEMP 97.8
[2018-03-09] MEDS ORDERED: SODIUM CHLORIDE 0.9% 1,000 ML IV STA (18:38)
[2018-03-09] MEDS ORDERED: METOCLOPRAMIDE 5 MG/ML 2 ML VIAL IVP STA (18:45)
--- NOTE | 2018-03-09 19:09 | ED ---
General Adult HPI <Jag Hicks Fabián - Last Filed: 03/10/18 00:26> - General Source: patient, RN notes reviewed, old records reviewed Mode of arrival: ambulatory Limitations: no limitations <Marino Nogueira - Last Filed: 03/10/18 13:07> - General Chief complaint: Nausea/Vomiting/Diarrhea Stated complaint: vomiting - History of Present Illness Initial comments: 27-year-old female patient , 13 weeks gestation with past history of hyperemesis gravidarum presents to ED for approximately 4 days of nausea and vomiting. Patient states that she's been able to keep down very little by mouth intake. Patient reports that she has had this problem throughout her entire . Patient states that the last 2 weeks. Nausea and vomiting has been well controlled with Zofran prescribed by her COMPUTATIONAL THEORY SCIENTIST Dr. Tan. Patient denies any other complaints. Patient denies abdominal pain, vaginal bleeding or discharge, chest pain, shortness breath, dysuria. Systemic: Pt denies fatigue, myalgia, fever/chills, rash. Pt denies weakness, night sweats, weight loss. Neuro: Pt denies headache, visual disturbances, syncope or pre-syncope. HEENT: Pt denies ocular discharge or irritation, otalgia, rhinorrhea, pharyngitis or notable lymphadenopathy. Cardiopulmonary: Pt denies chest pain, SOB, heart palpitations, dyspnea on exertion. Abdominal/GI: Pt denies abdominal pain. : Pt denies dysuria, burning w/ urination, frequency/urgency. Denies new onset urinary or bowel incontinence. MSK: Pt denies myalgia, loss of strength or function in extremities. Neuro: Pt denies new onset weakness, paresthesias. (Marino Nogueira) - Related Data Home Medications Medication Instructions Recorded Confirmed Sql-Nbyn-Xmmnq Acid 1 cap PO DAILY 01/22/18 03/09/18 [-U Capsule (formulary)] Ondansetron [Zofran] 4 mg PO Q8HR PRN 02/22/18 03/09/18 Previous Rx's Medication Instructions Recorded Nitrofurantoin Macrocrystal 100 mg PO Q12HR 7 Days #14 cap 03/09/18 [Macrodantin] Allergies Allergy/AdvReac Type Severity Reaction Status Date / Time cephalexin [From Keflex] AdvReac Nausea & Verified 03/09/18 18:36 Vomiting & Diarrhea Review of Systems ROS Other: All systems not noted in ROS Statement are negative. <DidierjessJag Fabián - Last Filed: 03/10/18 00:26> ROS Other: All systems not noted in ROS Statement are negative. <JeroMarino Melba - Last Filed: 03/10/18 13:07> ROS Statement: Those systems with pertinent positive or pertinent negative responses have been documented in the HPI. Past Medical History Past Medical History: Seizure Disorder Additional Past Medical History / Comment(s): Heart palpitations; patient had a chlamydial infection in November 2014. 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 History of Any Multi-Drug Resistant Organisms: None Reported Past Surgical History: Adenoidectomy Additional Past Surgical History / Comment(s): Exploratory laparotomy with right ovarian cystectomy March 2006. Past Anesthesia/Blood Transfusion Reactions: No Reported Reaction Past Psychological History: No Psychological Hx Reported Smoking Status: Never smoker Past Alcohol Use History: None Reported, Occasional Past Drug Use History: None Reported - Past Family History Mother Family Medical History: No Reported History <JeroMarino Melba - Last Filed: 03/10/18 13:07> General Exam <Maria LuzольгаJag Fabián - Last Filed: 03/10/18 00:26> Limitations: no limitations <FloridajamilMarino - Last Filed: 03/10/18 13:07> - General Exam Comments Initial Comments: Constitutional: NAD, AOX3, Pt has pleasant affect. HEENT: NC/AT, trachea midline, neck supple, no lymphadenopathy. Posterior pharynx non erythematous, without exudates. External ears appear normal, without discharge. Mucous membranes moist. Eyes PERRLA, EOM intact. There is no scleral icterus. No pallor noted. Cardiopulmonary: RRR, no murmurs, rubs or gallops, no JVD noted. Lungs CTAB in anterior and posterior corona. No peripheral edema. Abdominal exam: Abdomen soft and non-distended. Abdomen non-tender to palpation in all 4 quadrants. [employer] sign negative. Bowel sounds active in LLQ. No hepatosplenomegaly. No ecchymosis Neuro: CN II-XII grossly intact. No nuchal rigidity. MSK: No posterior calf tenderness bilaterally, homans sign negative bilaterally. Posterior tibialis and radial pulse +2 bilaterally. Sensation intact in upper and lower extremities. Full active ROM in upper and lower extremities, 5/5 strength. : Cervix closed, no blood noted in posterior vaginal vault, mucosa pink, no ulcerations or lesions. Chaperoned by ALESSIA Irwin. (Marino Nogueira) Vital Signs 03/09/18 03/10/18 17:57 00:28 Temperature 97.8 F Pulse Rate 94 88 Respiratory 16 18 Rate Blood Pressure 133/88 115/70 O2 Sat by Pulse 98 99 Oximetry Medical Decision Making - Lab Data Result diagrams: 03/09/18 18:20 03/09/18 18:20 <Jag Hicks - Last Filed: 03/10/18 00:26> - Lab Data Result diagrams: 03/09/18 18:20 03/09/18 18:20 <Marino Nogueira - Last Filed: 03/10/18 13:07> - Medical Decision Making Patient was seen and evaluated by myself along with physician ward assistant. Labs were reviewed. Patient had elevated bilirubin of 5.7. There is mild transaminitis as well. Vital signs are stable. No elevated blood pressure. She truly intervenous fluids. Patient tolerating by mouth. No active nausea or vomiting. Discussed patient case with Dr. Grant who is on-call for Dr. Tan patient's OB.. Liver enzymes and bilirubinemia will be managed outpatient. (Jag Hicks) 27-year-old female patient , 13 weeks gestation with past history of hyperemesis gravidarum presents to ED for approximately 4 days of nausea and vomiting. Patient states that she's been able to keep down very little by mouth intake. Patient reports that she has had this problem throughout her entire . Patient states that the last 2 weeks. Nausea and vomiting has been well controlled with Zofran prescribed by her COMPUTATIONAL THEORY SCIENTIST Dr. Tan. Patient denies any other complaints. Patient denies abdominal pain, vaginal bleeding or discharge, chest pain, shortness breath, dysuria. Pt VSS, blood pressure wnl. Physical exam displayed: Abdomen soft and non-distended. Abdomen non-tender to palpation in all 4 quadrants. [employer] sign negative. Bowel sounds active in LLQ. No hepatosplenomegaly. No ecchymosis. Cervix closed, no blood noted in posterior vaginal vault, mucosa pink, no ulcerations or lesions. Chaperoned by ALESSIA Irwin. Laboratory investigations revealed noncompressive CBC. CMP revealed mild hyponatremia, elevated bilirubin, elevated AST, ALT, alk phos. Repeat abdominal exam revealed no abdominal tenderness, Jacome sign negative, patient once again denied any abdominal pain. UA displayed contaminated sample, 37 squamous epithelial cells, 33 white blood cells, 7 red blood cells, moderate leukoesterase, +2 bilirubin, +4 ketones. US of gallbladder revealed negative RUQ exam, no gallstones or dilated ducts. Ultrasound conducted by Dr. Hicks visualized heart tones of 161 bpm. Patient nausea well-controlled with Reglan. Patient tolerating by mouth intake in ED, no n/v. Patient is a 1 L normal saline. Patient treated for a symptomatic bacteriuria with 1 g Rocephin ED. Urine cultured. Attending Physician Dr. Hicks contacted surgery consultant water main inspector physician Dr. Grant who recommended discharge with outpt follow up and evaluation. Pt rx macrobid for asymptomatic bacturia due to allergy to keflex. Dosing discussed with PharmFabián Martino. Pt to f/u with personal water main inspector Dr. Tan tomorrow. Pt has rx for Diclygis from Dr. Tan that she will use at home, denies need for a new prescription. Pt to return to ED if new s/sx develop or if condition worsens in anyway. Case discussed at length and pt seen by Dr. Hicks. (Marino Nogueira) - Lab Data Lab Results 03/09/18 03/09/18 03/09/18 Range/Units 18:20 18:20 18:20 WBC 10.9 H (3.8-10.6) k/uL RBC 4.90 (3.80-5.40) m/uL Hgb 14.7 D (11.4-16.0) gm/dL Hct 42.4 (34.0-46.0) % MCV 86.4 (80.0-100.0) fL MCH 29.9 (25.0-35.0) pg MCHC 34.6 (31.0-37.0) g/dL RDW 12.9 (11.5-15.5) % Plt Count 236 D (150-450) k/uL Neutrophils % 76 % Lymphocytes % 16 % Monocytes % 5 % Eosinophils % 1 % Basophils % 0 % Neutrophils # 8.2 H (1.3-7.7) k/uL Lymphocytes # 1.8 (1.0-4.8) k/uL Monocytes # 0.5 (0-1.0) k/uL Eosinophils # 0.1 (0-0.7) k/uL Basophils # 0.1 (0-0.2) k/uL Sodium 136 L (137-145) mmol/L Potassium 3.9 (3.5-5.1) mmol/L Chloride 102 (98-107) mmol/L Carbon Dioxide 20 L (22-30) mmol/L Anion Gap 14 mmol/L BUN 15 (7-17) mg/dL Creatinine 0.57 (0.52-1.04) mg/dL Est GFR (CKD-EPI)AfAm >90 (>60 ml/min/1.73 sqM) Est GFR (CKD-EPI)NonAf >90 (>60 ml/min/1.73 sqM) Glucose 77 (74-99) mg/dL Calcium 9.9 (8.4-10.2) mg/dL Total Bilirubin 5.7 H (0.2-1.3) mg/dL Conjugated Bilirubin 1.8 H (0.0-0.3) mg/dL Unconjugated Bilirubin 1.9 H (0.0-1.1) mg/dL Delta Bilirubin 2.0 H (0.0-0.2) mg/dL AST 73 H (14-36) U/L ALT 77 H (9-52) U/L Alkaline Phosphatase 138 H (38-126) U/L Total Protein 7.9 (6.3-8.2) g/dL Albumin 4.4 (3.5-5.0) g/dL Urine Color Dark Brown Urine Appearance Cloudy H (Clear) Urine pH 5.5 (5.0-8.0) Ur Specific [place] 1.024 (1.001-1.035) Urine Protein 1+ H (Negative) Urine Glucose (UA) Negative (Negative) Urine Ketones 4+ H (Negative) Urine Blood Small H (Negative) Urine Nitrite Negative (Negative) Urine Bilirubin 2+ H (Negative) Urine Urobilinogen 8.0 (<2.0) mg/dL Ur Leukocyte Esterase Moderate H (Negative) Urine RBC 7 H (0-5) /hpf Urine WBC 33 H (0-5) /hpf Ur Squamous Epith Cells 37 H (0-4) /hpf Urine Bacteria Rare H (None) /hpf Urine Mucus Many H (None) /hpf Disposition <Jag Hicks - Last Filed: 03/10/18 00:26> Is patient prescribed a controlled substance at d/c from ED?: No Time of Disposition: 23:50 <Marino Nogueira - Last Filed: 03/10/18 13:07> Clinical Impression: Nausea & vomiting Disposition: HOME SELF-CARE Condition: Stable Instructions: Nausea and Vomiting in (ED) Additional Instructions: Patient to adhere to previously discussed treatment plan and will take medication(s) as directed. Patient to follow up with PCP in 1-2 days. Patient to return to ED if symptoms do not improve. Prescriptions: Nitrofurantoin Macrocrystal [Macrodantin] 100 mg PO Q12HR 7 Days #14 cap Referrals: Brett Rhodes MD [Primary Care Provider] - 1-2 days Anshul Tan MD [STAFF PHYSICIAN] - 1-2 days
[2018-03-09 19:31] LABS: Appearance,Urine Cloudy (Clear); Bacteria,Urine Rare /hpf; Bilirubin,Urine 2+ (Negative); Blood,Urine Small (Negative); Color,Urine Dark Brown; Glucose,Urine (UA) Negative (Negative); Ketones,Urine 4+ (Negative); Leukocyte Esterase,Urine Moderate (Negative); Mucus,Urine Many /hpf; Nitrite,Urine Negative (Negative); PH, Urine 5.5 (5.0-8.0); Protein,Urine 1+ (Negative); RBC,Urine 7 /hpf (0-5); Specific Gravity,Urine 1.024 (1.001-1.035); Squamous Epithelial Cell,Urine 37 /hpf (0-4)
[2018-03-09 19:37] LABS: ALT 77 U/L (9-52); AST 73 U/L (14-36); Albumin 4.4 g/dL (3.5-5.0); Alkaline Phosphatase 138 U/L (38-126); Anion Gap 14 mmol/L; Blood Urea Nitrogen 15 mg/dL (7-17); Calcium 9.9 mg/dL (8.4-10.2); Carbon Dioxide 20 mmol/L (22-30); Chloride 102 mmol/L (98-107); Glucose 77 mg/dL (74-99); Potassium 3.9 mmol/L (3.5-5.1); Sodium 136 mmol/L (137-145); Total Bilirubin 5.7 mg/dL (0.2-1.3); Total Protein 7.9 g/dL (6.3-8.2)
[2018-03-09 19:48] LABS: Basophils # (A) 0.1 k/uL (0-0.2); Basophils % (A) 0 %; Eosinophils # (A) 0.1 k/uL (0-0.7); Eosinophils % (A) 1 %; HCT 42.4 % (34.0-46.0); Lymphocytes # (A) 1.8 k/uL (1.0-4.8); Lymphocytes % (A) 16 %; MCH 29.9 pg (25.0-35.0); MCHC 34.6 g/dL (31.0-37.0); MCV 86.4 fL (80.0-100.0); Monocytes # (A) 0.5 k/uL (0-1.0); Monocytes % (A) 5 %; Neutrophils # (A) 8.2 k/uL (1.3-7.7); Neutrophils % (A) 76 %; RDW 12.9 % (11.5-15.5); WBC 10.9 k/uL (3.8-10.6)
[2018-03-09 19:56] LABS: HGB 14.7 gm/dL (11.4-16.0); Platelet Count 236 k/uL (150-450)
--- NOTE | 2018-03-09 22:28 | US ---
EXAMINATION TYPE: US gallbladder DATE OF EXAM: 03/09/2018 COMPARISON: NONE CLINICAL HISTORY: Pain. elevated liver enzymes. EXAM MEASUREMENTS: Liver Length: 17.5 cm Gallbladder Wall: .3 cm CBD: .3 cm Right Kidney: 10.7 x 3.9 x 4.6 cm Pancreas: Obscured by bowel gas Liver: Increased attenuation Gallbladder: No stones seen Evidence for sonographic Jacome's sign: No CBD: wnl Right Kidney: wnl IMPRESSION: Negative right upper quadrant abdominal sonogram. No gallstones or dilated ducts.
[2018-03-10 00:19] LABS: Bilirubin, Conjugated 1.8 mg/dL (0.0-0.3); Bilirubin,Unconjugated 1.9 mg/dL (0.0-1.1)
[2018-03-10 00:30] VITALS: BP 115/70; PULSE 88; RESP 18
== END 2018-03-10 00:28 | disposition home or self-care (01) ==
LOC: EC 17:49
DX: O99.281 Endocrine, nutritional and metabolic diseases complicating pregnancy, first trimester (principal); E87.1 Hypo-osmolality and hyponatremia; E80.7 Disorder of bilirubin metabolism, unspecified; O99.89 Other specified diseases and conditions complicating pregnancy, childbirth and the puerperium; R19.7 Diarrhea, unspecified; R74.0 Nonspecific elevation of levels of transaminase and lactic acid dehydrogenase [LDH]; R74.8 Abnormal levels of other serum enzymes; R82.71 Bacteriuria; Z87.42 Personal history of other diseases of the female genital tract; Z98.890 Other specified postprocedural states; Z88.1 Allergy status to other antibiotic agents; Z3A.13 13 weeks gestation of pregnancy
CPT/HCPCS: 36415; 80053; 85025; 81001; 87086; 76705; 99284; 96365; 96375; 96361 ×2; J2765; J0696; 82248

== ENCOUNTER → 2018-06-21 | Outpatient (CLI) | payer BC ==
[2018-06-21 08:15] LABS: HCT 35.3 % (34.0-46.0); HGB 12.3 gm/dL (11.4-16.0); MCH 30.4 pg (25.0-35.0); MCHC 34.7 g/dL (31.0-37.0); MCV 87.4 fL (80.0-100.0); Mean Platelet Volume 8.4; Platelet Count 156 k/uL (150-450); RBC 4.04 m/uL (3.80-5.40); RDW 13.1 % (11.5-15.5); WBC 8.6 k/uL (3.8-10.6)
== END ==
LOC: LABWHC1 06:56
PROVIDERS: ATTEND Obstetrics & Gynecology
DX: Z34.02 Encounter for supervision of normal first pregnancy, second trimester (principal); Z3A.00 Weeks of gestation of pregnancy not specified
CPT/HCPCS: 36415; 82950; 85027; 86850

== ENCOUNTER 2018-09-09 05:47 | Inpatient (IN) | payer BC ==
[2018-09-09] MEDS ORDERED: CARBOPROST TROMETHAMINE 250 MCG/ML 1 ML AMP IM PRN (05:51)
[2018-09-09] MEDS ORDERED: OXYTOCIN 10 UNIT/ML 1 ML VIAL IM PRN (05:51)
[2018-09-09] MEDS ORDERED: LIDOCAINE 0.5% (PF) 5 MG/ML (50 ML SDV) SQ PRN (05:51)
[2018-09-09] MEDS ORDERED: METHYLERGONOVINE 0.2 MG/ML 1 ML AMP IM PRN (05:51)
[2018-09-09] MEDS ORDERED: OXYTOCIN 30 UNITS/500 ML NS 30 UNIT in SALINE 1 500ML.BAG IV SCH (05:51)
[2018-09-09] MEDS ORDERED: LACTATED RINGERS 1,000 ML IV SCH (05:51)
[2018-09-09] MEDS ORDERED: AMPICILLIN 2,000 MG in SODIUM CHLORIDE 0.9% 100 ML IVPB STA (05:51)
[2018-09-09] MEDS ORDERED: TERBUTALINE 1 MG/ML VIAL SQ PRN (05:51)
--- NOTE | 2018-09-09 06:04 | P.HPOB ---
History of Present Illness H&P Date: 09/09/18 Chief Complaint: Requested induction of labor This patient is a pleasant 27-year-old 1 para 0 female estimated date of confinement 09/14/2018 estimated gestational age 39-2/7 weeks who presents to labor and delivery for requested induction of labor due to maternal discomfort. Patient's care is complicated the first trimester by significant nausea vomiting that resulted in dehydration and elevated liver tests however this however didn't resolve by approximately 20 weeks and patient's liver tests became normal. otherwise has been uncomplicated. Review of Systems Constitutional: Denies chills, Denies fever Gastrointestinal: Reports heartburn Genitourinary: Reports Menstruation: Reports amenorrhea Past Medical History Past Medical History: Seizure Disorder Additional Past Medical History / Comment(s): Heart palpitations; patient had a chlamydial infection in November 2014. 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 History of Any Multi-Drug Resistant Organisms: None Reported Past Surgical History: Adenoidectomy Additional Past Surgical History / Comment(s): Exploratory laparotomy with right ovarian cystectomy March 2006. Past Anesthesia/Blood Transfusion Reactions: No Reported Reaction Past Psychological History: No Psychological Hx Reported Smoking Status: Never smoker Past Alcohol Use History: None Reported, Occasional Past Drug Use History: None Reported - Past Family History Mother Family Medical History: No Reported History Medications and Allergies Home Medications Medication Instructions Recorded Confirmed Type Han-Nzso-Gxylt Acid 1 cap PO DAILY 01/22/18 03/09/18 History [-U Capsule (formulary)] Allergies Allergy/AdvReac Type Severity Reaction Status Date / Time cephalexin [From Keflex] AdvReac Nausea & Verified 09/09/18 05:51 Vomiting & Diarrhea Exam Intake and Output 09/08/18 09/08/18 09/09/18 14:59 22:59 06:59 Other: Weight 101.605 kg - OBG Physical Exam Abdomen: bowel sounds normal, no diffuse tenderness, no bruit present, no guarding noted, no hepatomegaly, no splenomegaly, no mass Vulva: both: normal Vagina: normal moisture, no discharge Cervix: no lesion (Cervix in the office was 3-4 cm dilated and 80% effaced.), no discharge Uterus: enlarged (Fundal height is 38 cm.) Results blood work shows blood type is A- (she received RhoGAM on July 06), rubella immune, RPR nonreactive, hepatitis B negative, HIV is nonreactive, ultrasounds have been normal, Glucola was normal, group B strep was positive, most recent ultrasound showed estimated weight of 5 lbs. 4 oz. that was on August 11 which is the 42nd percentile. Assessment and Plan Assessment: This is a pleasant 27-year-old 1 para 0 female 39-2/7 weeks gestation who presents to labor and delivery for requested induction of labor secondary to maternal discomfort. Patient also has a positive group B strep culture. Plan is antibiotic prophylaxis, Pitocin induction of labor per protocol, and anticipate vaginal delivery. (1) 39 weeks gestation of Current Visit: Yes Status: Acute Code(s): Z3A.39 - 39 WEEKS GESTATION OF SNOMED Code(s): 72416959 (2) Elective induction of labor planned Current Visit: Yes Status: Acute Code(s): MWH0274 - SNOMED Code(s): 896507227 (3) Group B streptococcal carriage complicating Current Visit: Yes Status: Acute Code(s): O99.820 - STREPTOCOCCUS B CARRIER STATE COMPLICATING SNOMED Code(s): 219011527436044
[2018-09-09 06:07] VITALS: BMI 40.9
[2018-09-09 06:20] LABS: Basophils % (A) 0 %; Eosinophils # (A) 0.1 k/uL (0-0.7); Eosinophils % (A) 1 %; HCT 34.2 % (34.0-46.0); HGB 12.2 gm/dL (11.4-16.0); Lymphocytes # (A) 2.1 k/uL (1.0-4.8); Lymphocytes % (A) 26 %; MCH 29.9 pg (25.0-35.0); MCHC 35.6 g/dL (31.0-37.0); MCV 83.8 fL (80.0-100.0); Mean Platelet Volume 10.2; Monocytes # (A) 0.4 k/uL (0-1.0); Monocytes % (A) 4 %; Neutrophils # (A) 5.2 k/uL (1.3-7.7); Neutrophils % (A) 65 %; Platelet Count 151 k/uL (150-450); RBC 4.09 m/uL (3.80-5.40); RDW 14.9 % (11.5-15.5)
[2018-09-09] MEDS ORDERED: BUTORPHANOL 1 MG/ML 1 ML VIAL IV PRN (07:21)
[2018-09-09] MEDS ORDERED: ROPIVACAINE 100 MG, fentaNYL (PF) 200 MCG in SODIUM CHLORIDE 0.9% 76 ML EPIDURAL ONE (09:44)
[2018-09-09] MEDS ORDERED: AMPICILLIN 1,000 MG in SODIUM CHLORIDE 0.9% 50 ML IVPB SCH (10:00)
[2018-09-09] MEDS ORDERED: ACETAMINOPHEN TAB 325 MG TAB PO PRN (10:13)
[2018-09-09] MEDS ORDERED: ZOLPIDEM 5 MG TAB PO PRN (10:13)
[2018-09-09] MEDS ORDERED: diphenhydrAMINE 50 MG/ML 1 ML VIAL IVP PRN (10:13)
[2018-09-09] MEDS ORDERED: HYDROCORTISONE 2.5% RECTAL CREAM 30 GM TUBE RECTAL PRN (10:13)
[2018-09-09] MEDS ORDERED: BENZOCAINE/MENTHOL SPRAY 1 GM/SPRAY AEROSOL TOPICAL PRN (10:13)
[2018-09-09] MEDS ORDERED: diphenhydrAMINE 25 MG CAP PO PRN (10:13)
[2018-09-09] MEDS ORDERED: SIMETHICONE 80 MG CHEWABLE PO PRN (10:13)
[2018-09-09] MEDS ORDERED: WITCH HAZEL 1 EACH MED..PAD TOPICAL PRN (10:13)
[2018-09-09] MEDS ORDERED: OXYTOCIN 20 UNITS/1000 ML NS 1,000 ML IV SCH (10:13)
[2018-09-09] MEDS ORDERED: LANOLIN CREAM 5 GM TUBE TOPICAL PRN (10:13)
[2018-09-09] MEDS ORDERED: Rhogam IMMUNE GLOBULIN 1,500 UNIT/1 ML IM ONE (10:13)
[2018-09-09] MEDS ORDERED: BISACODYL 10 MG SUPP RECTAL PRN (10:13)
--- NOTE | 2018-09-09 12:16 | P.PROBDLV ---
Vaginal Delivery Note - . Vaginal Delivery Note: Normal vaginal delivery viable male infant Apgars 9 and 9 delivery time was 0937 hours. Please see dictated H&P for intimate details of this patient's admission. In summary this is a pleasant 27-year-old 1 para 0 female 39-2/7 weeks who presents to labor and delivery for requested induction of labor. On admission patient is given IV antibiotics for positive strep culture and has Pitocin started per protocol. Artificial rupture membranes is done for scant amount of fluid. Labor progresses she gets one dose of Stadol and epidural for pain control. She quickly progresses and pushes approximately for 10 minutes and pushes the head to the perineum. Posterior perineum was supported and we have controlled delivery of the 's head over the intact perineum. Mouth and nares are bulb suctioned there is no evidence of a nuchal cord. Patient rowdy milian pushes uncontrollably and delivers the rest of this infant's body and one push. This is a viable male Apgars are 9 and 9 delivery time was 0937 hours. Infant is late on the mother's abdomen. The cord was allowed to quit pulsating is doubly clamped and cut and appears to be trivascular. The placenta is then spontaneously delivered intact. Inspection of the perineum shows a second-degree laceration is repaired with 3-0 Vicryl in the usual fashion. Excellent reapproximation is noted. Cord blood was obtained for Rh status. All counts are correct 3. There are no complications. and mother stable delivery room.
[2018-09-09] MEDS: IBUPROFEN 600 MG TAB PO PRN ×2 (13:00→22:02)
[2018-09-09] MEDS: SENNOSIDES-DOCUSATE SODIUM 1 EACH TAB PO SCH (20:10)
[2018-09-10] MEDS: IBUPROFEN 600 MG TAB PO PRN (05:18)
--- NOTE | 2018-09-10 07:07 | P.PNOBGVD ---
Subjective - Subjective Patient reports: Reports appetite normal, Reports voiding normally, Reports pain well controlled, Reports ambulating normally : doing well Objective - Latest Vital Signs Latest vital signs: Vital Signs Temp Pulse Resp BP BP Pulse Ox 09/10/18 00:00 98.1 F 68 14 106/65 09/09/18 20:00 97.7 F 72 18 145/75 98 09/09/18 16:00 98.4 F 69 16 117/76 09/09/18 11:56 73 16 113/68 09/09/18 11:26 80 16 109/61 09/09/18 10:56 74 16 113/62 09/09/18 10:41 96.9 F L 74 16 113/62 09/09/18 10:26 80 16 101/59 09/09/18 10:11 75 16 99/54 09/09/18 09:56 88 16 106/58 106/58 - Exam Lungs: bilateral: normal Chest: Normal S1, Normal S2 Extremities: Present: normal Abdomen: Present: normal appearance, soft Uterus: Present: normal, firm Assessment and Plan Assessment: Post day #1. Patient is resting without complaints. Vital signs are stable and she is afebrile. Uterus is firm nontender and she is having normal lochia. Patient's baby needs to stay till tomorrow secondary to her positive group B strep status therefore we plan on continuing routine care today discharge home tomorrow. (1) 39 weeks gestation of Current Visit: Yes Status: Acute Code(s): Z3A.39 - 39 WEEKS GESTATION OF SNOMED Code(s): 22165930 (2) Elective induction of labor planned Current Visit: Yes Status: Acute Code(s): NPA4690 - SNOMED Code(s): 556114938 (3) Group B streptococcal carriage complicating Current Visit: Yes Status: Acute Code(s): O99.820 - STREPTOCOCCUS B CARRIER STATE COMPLICATING SNOMED Code(s): 180496764761396
[2018-09-10] MEDS: SENNOSIDES-DOCUSATE SODIUM 1 EACH TAB PO SCH ×2 (09:09→20:05)
--- NOTE | 2018-09-11 07:28 | P.PNOBGVD ---
Subjective - Subjective Patient reports: Reports appetite normal, Reports voiding normally, Reports pain well controlled, Reports ambulating normally : doing well Objective - Latest Vital Signs Latest vital signs: Vital Signs Temp Pulse Resp BP BP 09/11/18 00:00 97.9 F 89 16 110/69 09/10/18 16:00 98.7 F 79 16 126/69 09/10/18 08:00 98.7 F 77 14 132/69 - Exam Lungs: bilateral: normal Chest: Normal S1, Normal S2 Extremities: Present: normal Abdomen: Present: normal appearance, soft Uterus: Present: normal, firm Assessment and Plan Assessment: day #2. Patient is resting without complaints. Vital signs are stable and she is afebrile. Uterus is firm nontender and she is having normal lochia. I impression is a normal course. Plan is to continue routine care discharge home later today. (1) 39 weeks gestation of Current Visit: Yes Status: Acute Code(s): Z3A.39 - 39 WEEKS GESTATION OF SNOMED Code(s): 37789596 (2) Elective induction of labor planned Current Visit: Yes Status: Acute Code(s): AYY0196 - SNOMED Code(s): 638842809 (3) Group B streptococcal carriage complicating Current Visit: Yes Status: Acute Code(s): O99.820 - STREPTOCOCCUS B CARRIER STATE COMPLICATING SNOMED Code(s): 560391789799760
--- NOTE | 2018-09-11 07:33 | P.DS ---
Providers Date of admission: 09/09/18 05:47 Expected date of discharge: 09/11/18 Attending physician: Anshul Tan Primary care physician: Brett Rhodes - Discharge Diagnosis(es) (1) 39 weeks gestation of Current Visit: Yes Status: Acute (2) Elective induction of labor planned Current Visit: Yes Status: Acute (3) Group B streptococcal carriage complicating Current Visit: Yes Status: Acute Hospital Course: Please see dictated H&P for intimate details of this patient's admission. Brief summary this is a pleasant 27-year-old 1 para 0 female admitted to labor and delivery for elective induction of labor. Patient quickly goes on to have a vaginal delivery viable male . Please see dictated delivery note. day #2 patient's felt be stable for discharge home follow up with me in 6 weeks. Procedures: Induction of labor and normal vaginal delivery Patient Condition at Discharge: Good Plan - Discharge Summary New Discharge Prescriptions: New Ibuprofen [Motrin] 600 mg PO Q6HR PRN #40 tab PRN Reason: Mild Pain Or Fever >= 100.5 No Action Uts-Ioyy-Wnaks Acid [-U Capsule (formulary)] 1 cap PO DAILY Discharge Medication List Otc-Cgtc-Dvzxn Acid [-U Capsule (formulary)] 1 cap PO DAILY 01/22/18 [History] Ibuprofen [Motrin] 600 mg PO Q6HR PRN #40 tab 09/11/18 [Rx] Follow up Appointment(s)/Referral(s): Anshul Tan MD [STAFF PHYSICIAN] - 10/20/18 9:30 am Patient Instructions/Handouts: Vaginal Delivery (DC) Activity/Diet/Wound Care/Special Instructions: No intercourse or anything per vagina for 6 weeks. Please call if any fever, chills, excessive vaginal bleeding and/or abdominal pain. Discharge Disposition: HOME SELF-CARE
[2018-09-11] MEDS: SENNOSIDES-DOCUSATE SODIUM 1 EACH TAB PO SCH (08:00)
[2018-09-11 09:52] VITALS: BP 123/76; PULSE 77; RESP 20; TEMP 98.3
== END 2018-09-11 14:15 | disposition home or self-care (01) | DRG 807 ==
LOC: 4FBP 05:47
PROVIDERS: ADMIT Obstetrics & Gynecology; ATTEND Obstetrics & Gynecology
PROC: 0KQM0ZZ Repair Perineum Muscle, Open Approach (ICD-10-PCS; principal; 2018-09-09)
PROC: 10907ZC Drainage of Amniotic Fluid, Therapeutic from Products of Conception, Via Natural or Artificial Opening (ICD-10-PCS; principal; 2018-09-09)
PROC: 10E0XZZ Delivery of Products of Conception, External Approach (ICD-10-PCS; principal; 2018-09-09)
DX: O99.824 Streptococcus B carrier state complicating childbirth (principal); Z37.0 Single live birth; G40.909 Epilepsy, unspecified, not intractable, without status epilepticus; O70.1 Second degree perineal laceration during delivery; O99.354 Diseases of the nervous system complicating childbirth; Z3A.39 39 weeks gestation of pregnancy; Z86.19 Personal history of other infectious and parasitic diseases; Z90.89 Acquired absence of other organs; Z98.890 Other specified postprocedural states; Z88.1 Allergy status to other antibiotic agents
CPT/HCPCS: 85025; 85461; 86850; 86900; 86901

== ENCOUNTER → 2019-11-15 | Outpatient (CLI) | payer BC ==
[2019-11-15 10:30] LABS: HCT 34.6 % (34.0-46.0); MCH 30.7 pg (25.0-35.0); MCHC 34.7 g/dL (31.0-37.0); MCV 88.3 fL (80.0-100.0); Mean Platelet Volume 9.1; Platelet Count 147 k/uL (150-450); RBC 3.92 m/uL (3.80-5.40); WBC 8.6 k/uL (3.8-10.6)
== END | disposition home or self-care (01) ==
LOC: LABWHC1 08:44
PROVIDERS: ATTEND Obstetrics & Gynecology
DX: Z34.82 Encounter for supervision of other normal pregnancy, second trimester (principal)
CPT/HCPCS: 36415; 82950; 85027; 86850

== ENCOUNTER 2019-12-11 15:57 | Outpatient (CLI) | payer BC ==
[2019-12-11 16:59] LABS: Amorphous Sediment,Urine Moderate /hpf; Appearance,Urine Cloudy (Clear); Bacteria,Urine Rare /hpf; Bilirubin,Urine Negative (Negative); Blood,Urine Negative (Negative); Color,Urine Yellow; Glucose,Urine (UA) Negative (Negative); Hyaline Casts,Urine 1 /lpf (0-2); Ketones,Urine Negative (Negative); Leukocyte Esterase,Urine Trace (Negative); Mucus,Urine Rare /hpf; Nitrite,Urine Negative (Negative); Protein,Urine Negative (Negative); RBC,Urine 1 /hpf (0-5); Specific Gravity,Urine 1.021 (1.001-1.035); Squamous Epithelial Cell,Urine 18 /hpf (0-4); Urobilinogen,Urine <2.0 mg/dL (<2.0); WBC,Urine 3 /hpf (0-5)
[2019-12-11 17:09] LABS: Protein/Creatinine Ratio,Urine 0.082
[2019-12-11 18:14] LABS: Basophils % (A) 0 %; Eosinophils # (A) 0.1 k/uL (0-0.7); Eosinophils % (A) 1 %; HGB 12.4 gm/dL (11.4-16.0); Lymphocytes # (A) 1.9 k/uL (1.0-4.8); Lymphocytes % (A) 20 %; MCH 31.2 pg (25.0-35.0); MCHC 34.5 g/dL (31.0-37.0); MCV 90.3 fL (80.0-100.0); Mean Platelet Volume 9.2; Monocytes # (A) 0.4 k/uL (0-1.0); Monocytes % (A) 4 %; Neutrophils # (A) 6.8 k/uL (1.3-7.7); Neutrophils % (A) 72 %; Platelet Count 149 k/uL (150-450); RBC 3.98 m/uL (3.80-5.40); RDW 13.1 % (11.5-15.5); WBC 9.5 k/uL (3.8-10.6)
[2019-12-11 18:17] LABS: ALT 14 U/L (4-34); AST 22 U/L (14-36); African American GFR (CKD) >90 (>60 ml/min/1.73 sqM); Blood Urea Nitrogen 9 mg/dL (7-17); LDH 332 U/L (313-618); Non-African American GFR(CKD) >90 (>60 ml/min/1.73 sqM); Uric Acid 4.2 mg/dL (3.7-7.4)
[2019-12-11 18:39] VITALS: BP 140/93; PULSE 81; RESP 16; TEMP 97
--- NOTE | 2019-12-12 06:35 | P.MSEPDOC ---
Presenting Problems - Arrival Data Date of Arrival on Unit: 12/11/19 Time of Arrival on Unit: 15:57 Mode of Transport: Ambulatory - Complaint OB-Reason for Admission/Chief Complaint: Acute Nausea/Vomiting, Headache Medical History - Information : 2 Para: 1 Term: 0 : 0 Abortions: Spontaneous or Elective: 0 Number of Living Children: 1 - Gestational Age Gestational Age by INGA (wks/days): 30 Weeks and 5 Days Review of Systems - Review of Systems Constitutional: No problems Breast: No problems ENT: No problems Cardiovascular: No problems Respiratory: No problems Gastrointestinal: No problems Genitourinary: No problems Musculoskeletal: No problems Neurological: No problems Skin: No problems Vital Signs - Temperature Temperature: 97.0 F Temperature Source: Temporal Artery Scan - Pulse Right Sitting Pulse Rate: 81 Pulse Assessment Method: Automatic Cuff - Respirations Respiratory Rate: 16 Oxygen Delivery Method: Room Air - Blood Pressure Right Arm Blood Pressure: 140/93 Blood Pressure Mean: 108 Blood Pressure Source: Automatic Cuff - Comment Vital Signs Comment: all additional bps wnl Medical Screen Scoring (Pre) - Cervical Exam Dilation: Exam Deferred Effacement: Exam Deferred Membranes: Intact - Uterine Contractions Frequency: N/A Duration: N/A Intensity: N/A - Maternal Vital Signs Maternal Temperature: N/A Maternal Blood Pressure: N/A Signs of Preeclampsia: Headache = 1, Nausea/Vomiting = 1 Maternal Respirations: N/A - Maternal Trauma Maternal Trauma: N/A - Assessment - Baby A Baseline FHR: 145 Heart Rate - NICHD Category: Category I (Normal) = 0 NST: Reactive Position: N/A Station: N/A - Total Score - Baby A Total Score - Baby A: 2 - Total Score - Baby B Total Score - Baby B: 2 - Total Score - Baby C Total Score - Baby C: 2 - Level of Risk - Baby A Level of Risk - Baby A: Low (0-5) - Level of Risk - Baby B Level of Risk - Baby B: Low (0-5) - Level of Risk - Baby C Level of Risk - Baby C: Low (0-5) Physician Notification (Pre) - Physician Notified Physician Notified Date: 12/11/19 Physician Notified Time: 18:26 New Order Received: Yes (d/c home) Disposition - Disposition OB Disposition: Discharge to home Discharge Date: 12/11/19 Discharge Time: 18:34 I agree with the RN Medical Screening Exam: Yes Risk & Benefit of care provided described in d/c instruction: Yes Diagnosis: HEADACHE (Patient was sent in for evaluation headache. She has chronic N/V of as well. Initial BP mildly elevated so I did pre- eclampsia labs which were normal. All subsequent blood pressures were normal. No history of HTN in . No evidence of pre-eclampsia. Pt is felt to be stable for discharge to followup in the office or return immediately if concerns/symptomatology.)
== END 2019-12-11 18:34 | disposition home or self-care (01) ==
LOC: FBPOP 15:57
PROVIDERS: ATTEND Obstetrics & Gynecology
DX: O99.891 Other specified diseases and conditions complicating pregnancy (principal); R51.9 Headache, unspecified; Z3A.30 30 weeks gestation of pregnancy
CPT/HCPCS: 59025; 81001; 82565; 82570; 83615; 84156; 84450; 84460; 84520; 84550; 85025; 99215

== ENCOUNTER 2020-01-02 03:55 | Outpatient (CLI) | payer BC ==
[2020-01-02 04:23] LABS: Appearance,Urine Cloudy (Clear); Bacteria,Urine Rare /hpf; Bilirubin,Urine Negative (Negative); Blood,Urine Negative (Negative); Color,Urine Yellow; Glucose,Urine (UA) Negative (Negative); Ketones,Urine Negative (Negative); Leukocyte Esterase,Urine Moderate (Negative); Mucus,Urine Rare /hpf; Nitrite,Urine Negative (Negative); Protein,Urine Negative (Negative); RBC,Urine 1 /hpf (0-5); Specific Gravity,Urine 1.012 (1.001-1.035); Squamous Epithelial Cell,Urine 26 /hpf (0-4); Urobilinogen,Urine <2.0 mg/dL (<2.0); WBC,Urine 6 /hpf (0-5)
[2020-01-02 04:59] VITALS: BP 117/69; PULSE 78; RESP 16; TEMP 97.2
[2020-01-02] MEDS: LACTATED RINGERS 1,000 ML IV SCH ×2 (05:12→05:52)
--- NOTE | 2020-01-02 08:16 | P.MSEPDOC ---
Presenting Problems - Arrival Data Date of Arrival on Unit: 01/02/20 Time of Arrival on Unit: 03:55 Mode of Transport: Wheelchair - Complaint OB-Reason for Admission/Chief Complaint: Possible Onset of Labor Comment: contrctions started at 0130 Medical History - Information : 2 Para: 1 Term: 1 : 0 Abortions: Spontaneous or Elective: 0 Number of Living Children: 1 - Gestational Age Gestational Age by INGA (wks/days): 33 Weeks and 6 Days Review of Systems - Review of Systems Constitutional: No problems Breast: No problems ENT: No problems Cardiovascular: No problems Respiratory: No problems Gastrointestinal: No problems Genitourinary: No problems Musculoskeletal: No problems Neurological: No problems Skin: No problems Vital Signs - Temperature Temperature: 97.2 F Temperature Source: Temporal Artery Scan - Pulse Right Sitting Pulse Rate: 78 Pulse Assessment Method: Automatic Cuff - Respirations Respiratory Rate: 16 Oxygen Delivery Method: Room Air O2 Sat by Pulse Oximetry: 100 - Blood Pressure Right Arm Supine Blood Pressure: 117/69 Blood Pressure Mean: 85 Blood Pressure Source: Automatic Cuff Medical Screen Scoring (Pre) - Cervical Exam Dilation: 1-3 cm = 1 Membranes: Intact - Uterine Contractions Frequency: < 36 weeks = 6 Duration: > 40 seconds = 2 Intensity: N/A - Maternal Vital Signs Maternal Temperature: N/A Signs of Preeclampsia: N/A Maternal Respirations: N/A - Maternal Trauma Maternal Trauma: N/A - Assessment - Baby A Baseline FHR: 135 Heart Rate - NICHD Category: Category I (Normal) = 0 NST: Reactive - Total Score - Baby A Total Score - Baby A: 9 - Total Score - Baby B Total Score - Baby B: 9 - Total Score - Baby C Total Score - Baby C: 9 - Level of Risk - Baby A Level of Risk - Baby A: Medium (6-9) - Level of Risk - Baby B Level of Risk - Baby B: Medium (6-9) - Level of Risk - Baby C Level of Risk - Baby C: Medium (6-9) Physician Notification (Pre) - Physician Notified Physician Notified Date: 01/02/20 Physician Notified Time: 04:43 New Order Received: Yes - Notification Comment Comment: IV HYDRATION AND SEND UA AND CULTURE Medical Screen Scoring (Post) - Uterine Contractions Frequency: > 5 minutes apart = 1 Duration: > 40 seconds = 2 Intensity: N/A - Maternal Vital Signs Maternal Temperature: N/A Maternal Blood Pressure: N/A Signs of Preeclampsia: N/A Maternal Respirations: N/A - Maternal Trauma Maternal Trauma: N/A - Assessment - Baby A Heart Rate: 125 Heart Rate - NICHD Category: Category I (Normal) = 0 NST: Reactive - Total Score Total Score - Baby A: 3 Total Score - Baby B: 3 Total Score - Baby C: 3 - Post Treatment Level of Risk Post Treatment Level of Risk - Baby A: Low (0-5) Post Treatment Level of Risk - Baby B: Low (0-5) Post Treatment Level of Risk - Baby C: Low (0-5) Physician Notification (Post) - Physician Notified Physician Notified Date: 01/02/20 Physician Notified Time: 04:43 Physician/Practitioner Notified:: DR KUO New Order Received: Yes - Notification Comment Comment: DC HOME IF CONTRACTIONS SPACE. KEEP SCED 0830 APPOINTMENT WITH [facility] Disposition - Disposition OB Disposition: Discharge to home, Written follow up instructions reviewed Discharge Date: 01/02/20 Discharge Time: 07:10 I agree with the RN Medical Screening Exam: Yes Risk & Benefit of care provided described in d/c instruction: Yes Diagnosis: FALSE LABOR BEFORE 37 COMPLETED WEEKS OF GEST, THIRD TRI
== END 2020-01-02 07:10 | disposition home or self-care (01) ==
LOC: FBPOP 03:55
PROVIDERS: ATTEND Obstetrics & Gynecology
DX: O47.03 False labor before 37 completed weeks of gestation, third trimester (principal); Z3A.33 33 weeks gestation of pregnancy
CPT/HCPCS: 59025; 81001; 87086; 96360; 96361; 99214

== ENCOUNTER 2020-02-07 05:53 | Inpatient (IN) | payer BC ==
[2020-02-07] MEDS ORDERED: OXYTOCIN 10 UNIT/ML 1 ML VIAL IM PRN (06:01)
[2020-02-07] MEDS ORDERED: TERBUTALINE 1 MG/ML VIAL SQ PRN (06:01)
[2020-02-07] MEDS ORDERED: LIDOCAINE 0.5% (PF) 5 MG/ML (50 ML SDV) SQ PRN (06:01)
[2020-02-07] MEDS ORDERED: CARBOPROST TROMETHAMINE 250 MCG/ML 1 ML AMP IM PRN (06:01)
[2020-02-07] MEDS ORDERED: METHYLERGONOVINE 0.2 MG/ML 1 ML AMP IM PRN (06:01)
[2020-02-07] MEDS ORDERED: LACTATED RINGERS 1,000 ML IV SCH (06:01)
[2020-02-07] MEDS ORDERED: OXYTOCIN 30 UNITS/500 ML NS 30 UNIT in SALINE 1 500ML.BAG IV SCH (06:01)
[2020-02-07] MEDS ORDERED: CLINDAMYCIN 900 MG in DEXTROSE 5% IN WATER 50 ML IVPB SCH ×2 (06:01)
--- NOTE | 2020-02-07 06:30 | P.HPOB ---
History of Present Illness H&P Date: 02/07/20 Chief Complaint: Requested induction of labor This patient is a pleasant 29-year-old 2 para 1 female estimated date of confinement 02/14/2020 estimated gestational age 39 weeks who presents to labor and delivery for requested induction of labor. Patient's care has been uncomplicated. Patient is uncomfortable requested induction at this time. Review of Systems Genitourinary: Reports Menstruation: Reports amenorrhea Past Medical History Past Medical History: Seizure Disorder Additional Past Medical History / Comment(s): Heart palpitations; patient had a chlamydial infection in November 2014. 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 History of Any Multi-Drug Resistant Organisms: None Reported Past Surgical History: Adenoidectomy Additional Past Surgical History / Comment(s): Exploratory laparotomy with right ovarian cystectomy March 2006. Past Anesthesia/Blood Transfusion Reactions: No Reported Reaction Past Psychological History: No Psychological Hx Reported Smoking Status: Never smoker Past Alcohol Use History: None Reported, Occasional Past Drug Use History: None Reported - Past Family History Mother Family Medical History: No Reported History Medications and Allergies Home Medications Medication Instructions Recorded Confirmed Type No Known Home Medications 01/02/20 02/07/20 History Allergies Allergy/AdvReac Type Severity Reaction Status Date / Time cephalexin [From Keflex] AdvReac Nausea & Verified 02/07/20 06:00 Vomiting & Diarrhea Exam Vital Signs Temp Pulse Resp BP Pulse Ox 02/07/20 06:00 97.6 F 91 16 130/82 98 Intake and Output 02/06/20 02/06/20 02/07/20 14:59 22:59 06:59 Other: # Voids 1 Weight 108.862 kg - OBG Physical Exam Abdomen: bowel sounds normal, no diffuse tenderness, no bruit present, no guarding noted, no hepatomegaly, no splenomegaly, no mass Vulva: both: normal Vagina: normal moisture, no discharge Cervix: no lesion (Cervix is 4/80% -2 station), no discharge Uterus: enlarged (Finally consistent with gestational age) Results blood work shows she is A-, rubella immune, RPR nonreactive, hepatitis B negative, HIV is nonreactive, Glucola was normal, group B strep was negative (history of positive group B strep with her first , [place] was given on November 20, ultrasounds have shown normal growth. Assessment and Plan Assessment: This is a pleasant 29-year-old 2 para 1 female 39-0/7 weeks gestation admitted to labor and delivery for requested induction of labor. Patient is a negative group B strep culture however does have a history of positive therefore is therefore prophylactically treat. Plan is induction of labor and anticipate vaginal delivery. (1) 39 weeks gestation of Current Visit: No Status: Acute Code(s): Z3A.39 - 39 WEEKS GESTATION OF SNOMED Code(s): 80336355 (2) Elective induction of labor planned Current Visit: No Status: Acute Code(s): ILE4903 - SNOMED Code(s): 4 17894394 (3) History of group B Streptococcus (GBS) infection Current Visit: Yes Status: Acute Code(s): Z86.19 - PERSONAL HISTORY OF OTHER INFECTIOUS AND PARASITIC DISEASES SNOMED Code(s): 288511561
[2020-02-07 06:56] LABS: Basophils % (A) 0 %; Eosinophils # (A) 0.1 k/uL (0-0.7); Eosinophils % (A) 1 %; HCT 34.7 % (34.0-46.0); HGB 12.3 gm/dL (11.4-16.0); Lymphocytes # (A) 2.1 k/uL (1.0-4.8); Lymphocytes % (A) 27 %; MCH 30.8 pg (25.0-35.0); MCHC 35.6 g/dL (31.0-37.0); MCV 86.3 fL (80.0-100.0); Mean Platelet Volume 9.7; Monocytes # (A) 0.5 k/uL (0-1.0); Monocytes % (A) 6 %; Neutrophils # (A) 4.7 k/uL (1.3-7.7); Neutrophils % (A) 61 %; Platelet Count 128 k/uL (150-450); RBC 4.01 m/uL (3.80-5.40); RDW 13.6 % (11.5-15.5); WBC 7.7 k/uL (3.8-10.6)
--- NOTE | 2020-02-07 07:49 | P.PROBDLV ---
Vaginal Delivery Note - . Vaginal Delivery Note: Normal spontaneous vaginal delivery viable female infant Apgars 8 and 8 delivery time is 0730 hours. Please see dictated H&P for intimate details of this patient's admission. Brief summary this is a pleasant 29-year-old 2 para 1 female 39-0/7 weeks gestation admitted to labor and delivery for induction of labor. On admission patient is having contractions found to be 4 cm dilated. She has artificial rupture membranes for clear fluid. Soon thereafter patient does very uncomfortable and quickly progresses to complete. Patient pushes the head to the perineum the posterior perineum was supported. We have controlled delivery of infant's head over the intact perineum. Also nares are bulb suctioned. There is no evidence of a nuchal cord. With gentle downward traction we then have delivery the anterior and posterior shoulder and rest this 's body. This is a vigorous viable female Apgars are 8 and 8 delivery time is 0730 hours. After delivery of the the cord was allowed to quit pulsating is then doubly clamped and cut. It appears to be trivascular. The placenta is spontaneously delivered intact. Inspection of perineum shows a first-degree posterior laceration repaired with 3-0 Vicryl in the usual fashion. Excellent reapproximation is noted. All counts are correct 3. There are no complications. and mother are stable delivery room.
[2020-02-07] MEDS ORDERED: ZOLPIDEM 5 MG TAB PO PRN (07:53)
[2020-02-07] MEDS ORDERED: Rhogam IMMUNE GLOBULIN 1,500 UNIT/1 ML IM ONE (07:53)
[2020-02-07] MEDS ORDERED: LANOLIN CREAM 5 GM TUBE TOPICAL PRN (07:53)
[2020-02-07] MEDS ORDERED: IBUPROFEN 600 MG TAB PO PRN (07:53)
[2020-02-07] MEDS ORDERED: HYDROCORTISONE 2.5% RECTAL CREAM 30 GM TUBE RECTAL PRN (07:53)
[2020-02-07] MEDS ORDERED: BENZOCAINE/MENTHOL SPRAY 1 GM/SPRAY AEROSOL TOPICAL PRN (07:53)
[2020-02-07] MEDS ORDERED: diphenhydrAMINE 50 MG/ML 1 ML VIAL IVP PRN (07:53)
[2020-02-07] MEDS ORDERED: OXYTOCIN 20 UNITS/1000 ML NS 1,000 ML IV SCH (07:53)
[2020-02-07] MEDS ORDERED: bisacodyL 10 MG SUPP RECTAL PRN (07:53)
[2020-02-07] MEDS ORDERED: diphenhydrAMINE 25 MG CAP PO PRN (07:53)
[2020-02-07] MEDS ORDERED: SIMETHICONE 80 MG CHEWABLE PO PRN (07:53)
[2020-02-07] MEDS: SENNOSIDES-DOCUSATE SODIUM 1 EACH TAB PO SCH ×2 (18:50→20:00)
[2020-02-07] MEDS ORDERED: INFLUENZA VACCINE (6 MOS+) 60 MCG/0.5 ML SYRINGE IM ONE (19:37)
[2020-02-07] MEDS: ACETAMINOPHEN TAB 325 MG TAB PO PRN (21:51)
[2020-02-08] MEDS: ACETAMINOPHEN TAB 325 MG TAB PO PRN ×2 (03:51→18:50)
[2020-02-08 06:00] LABS: Basophils % (A) 0 %; Eosinophils # (A) 0.1 k/uL (0-0.7); Eosinophils % (A) 1 %; HCT 30.2 % (34.0-46.0); HGB 10.6 gm/dL (11.4-16.0); Lymphocytes # (A) 2.1 k/uL (1.0-4.8); Lymphocytes % (A) 22 %; MCH 30.8 pg (25.0-35.0); MCHC 34.9 g/dL (31.0-37.0); MCV 88.4 fL (80.0-100.0); Mean Platelet Volume 9.7; Monocytes # (A) 0.4 k/uL (0-1.0); Monocytes % (A) 4 %; Neutrophils # (A) 6.6 k/uL (1.3-7.7); Neutrophils % (A) 69 %; Platelet Count 126 k/uL (150-450); RBC 3.42 m/uL (3.80-5.40); RDW 13.9 % (11.5-15.5); WBC 9.6 k/uL (3.8-10.6)
--- NOTE | 2020-02-08 06:30 | P.PNOBGVD ---
Subjective - Subjective Patient reports: Reports appetite normal, Reports voiding normally, Reports pain well controlled, Reports ambulating normally : doing well Objective - Latest Vital Signs Latest vital signs: Vital Signs Temp Pulse Resp BP Pulse Ox 02/07/20 23:34 98.2 F 85 16 99/65 02/07/20 20:00 98.3 F 75 16 131/84 99 02/07/20 16:00 98.0 F 81 16 119/81 02/07/20 12:00 98.0 F 65 16 115/70 02/07/20 09:50 96.9 F L 67 15 116/73 02/07/20 09:20 70 15 113/76 02/07/20 08:50 77 15 105/69 02/07/20 08:35 76 16 108/70 02/07/20 08:20 78 15 109/65 02/07/20 08:05 77 16 115/70 02/07/20 07:50 96.5 F L 99 15 115/64 Intake and Output 02/07/20 02/07/20 02/08/20 14:59 22:59 06:59 Other: # Voids 1 1 - Exam Lungs: bilateral: normal Chest: Normal S1, Normal S2 Extremities: Present: normal Abdomen: Present: normal appearance, soft Uterus: Present: normal, firm - Labs Labs: Abnormal Lab Results - Last 24 Hours (Table) 02/07/20 02/08/20 Range/Units 06:10 05:23 RBC 3.42 L (3.80-5.40) m/uL Hgb 10.6 L (11.4-16.0) gm/dL Hct 30.2 L (34.0-46.0) % Plt Count 128 L 126 L (150-450) k/uL Assessment and Plan Assessment: day #1. Patient is resting without complaints wishes to go home. Vital signs are stable and she is afebrile. Uterus is firm nontender and she is having normal lochia. My impression this is a normal course. Plan is to continue routine care and discharge home later today (1) 39 weeks gestation of Current Visit: No Status: Acute Code(s): Z3A.39 - 39 WEEKS GESTATION OF SNOMED Code(s): 75919339 (2) Elective induction of labor planned Current Visit: No Status: Acute Code(s): ZUV8366 - SNOMED Code(s): 871638977 (3) History of group B Streptococcus (GBS) infection Current Visit: Yes Status: Acute Code(s): Z86.19 - PERSONAL HISTORY OF OTHER INFECTIOUS AND PARASITIC DISEASES SNOMED Code(s): 745319729
--- NOTE | 2020-02-08 06:34 | P.DS ---
Providers Date of admission: 02/07/20 05:53 Expected date of discharge: 02/08/20 Attending physician: Anshul Tan Primary care physician: Stated None - Discharge Diagnosis(es) (1) 39 weeks gestation of Current Visit: No Status: Acute (2) Elective induction of labor planned Current Visit: No Status: Acute (3) History of group B Streptococcus (GBS) infection Current Visit: Yes Status: Acute Hospital Course: Please see dictated H&P for intimate details of this patient's admission. Brief summary is a pleasant 29-year-old 2 para 1 female 39 weeks gestation admitted to labor and delivery for elective induction of labor. Patient is admitted quickly goes on have a vaginal delivery viable female infant. Please see dictated delivery note. day #1 patient is without complaints wishes to go home. Patient's felt stable for discharge home follow up with me in 6 weeks Procedures: Induction of labor and normal vaginal delivery Patient Condition at Discharge: Good Plan - Discharge Summary New Discharge Prescriptions: New Ibuprofen [Motrin] 600 mg PO Q6HR PRN #40 tab PRN Reason: Mild Pain Or Fever >= 100.5 Discharge Medication List Ibuprofen [Motrin] 600 mg PO Q6HR PRN #40 tab 02/08/20 [Rx] Follow up Appointment(s)/Referral(s): Anshul Tan MD [STAFF PHYSICIAN] - 6 Weeks Patient Instructions/Handouts: Vaginal Delivery (DC) Activity/Diet/Wound Care/Special Instructions: No intercourse think per vagina for 6 weeks. Please call if any fever, chills, excessive vaginal bleeding, and/or abdominal pain. Discharge Disposition: HOME SELF-CARE
[2020-02-08] MEDS: SENNOSIDES-DOCUSATE SODIUM 1 EACH TAB PO SCH ×2 (07:31→19:43)
[2020-02-09] MEDS: ACETAMINOPHEN TAB 325 MG TAB PO PRN ×2 (00:33→08:00)
--- NOTE | 2020-02-09 06:21 | P.PNOBGVD ---
Subjective - Subjective Patient reports: Reports appetite normal, Reports voiding normally, Reports pain well controlled, Reports ambulating normally : doing well Objective - Latest Vital Signs Latest vital signs: Vital Signs Temp Pulse Resp BP Pulse Ox 02/08/20 23:45 98.3 F 74 18 126/85 99 02/08/20 15:49 97.8 F 86 16 121/75 99 02/08/20 09:00 97.5 F L 78 16 116/54 99 Intake and Output 02/08/20 02/08/20 02/09/20 14:59 22:59 06:59 Other: # Voids 1 1 2 - Exam Lungs: bilateral: normal Chest: Normal S1, Normal S2 Extremities: Present: normal Abdomen: Present: normal appearance, soft Uterus: Present: normal, firm Assessment and Plan Assessment: day #2. Patient's baby required phototherapy therefore she decided to stay yesterday. Patient continues to do well without complaints. Vital signs are stable and she is afebrile. Uterus is firm nontender she's having normal lochia. Plan is to continue routine care and discharge home today (1) 39 weeks gestation of Current Visit: No Status: Acute Code(s): Z3A.39 - 39 WEEKS GESTATION OF Rosa BURDICK SNOMED Code(s): 12601881 (2) Elective induction of labor planned Current Visit: No Status: Acute Code(s): ACQ3387 - SNOMED Code(s): 123429974 (3) History of group B Streptococcus (GBS) infection Current Visit: Yes Status: Acute Code(s): Z86.19 - PERSONAL HISTORY OF OTHER INFECTIOUS AND PARASITIC DISEASES SNOMED Code(s): 721199008
[2020-02-09] MEDS: SENNOSIDES-DOCUSATE SODIUM 1 EACH TAB PO SCH (08:00)
[2020-02-09 08:33] VITALS: BP 124/78; PULSE 109; RESP 16; TEMP 98
== END 2020-02-09 11:45 | disposition home or self-care (01) | DRG 807 ==
LOC: 4FBP 05:53
PROVIDERS: ADMIT Obstetrics & Gynecology; ATTEND Obstetrics & Gynecology
PROC: 0HQ9XZZ Repair Perineum Skin, External Approach (ICD-10-PCS; principal; 2020-02-07)
PROC: 10E0XZZ Delivery of Products of Conception, External Approach (ICD-10-PCS; principal; 2020-02-07)
DX: O99.354 Diseases of the nervous system complicating childbirth (principal); Z37.0 Single live birth; G40.909 Epilepsy, unspecified, not intractable, without status epilepticus; O70.0 First degree perineal laceration during delivery; Z3A.39 39 weeks gestation of pregnancy; Z90.89 Acquired absence of other organs; Z88.1 Allergy status to other antibiotic agents
CPT/HCPCS: 85025; 85461; 86850; 86900; 86901; 90686

== ENCOUNTER → 2020-03-08 | Outpatient (CLI) | payer BC ==
--- NOTE | 2020-03-13 10:15 | P.ARTDOP ---
Arterial Doppler LOWER EXTREMITY ARTERIAL DOPPLER: DATE OF SERVICE: 03/08/2020 Reason for study: Leg pain. Doppler waveforms: Multiphasic throughout on the left. Pulse volume recording: []. Pressure gradients: None. Ankle-brachial indices: Greater than 1 bilaterally. Toe brachial indices: 1.02 on the right, 0.89 on the left Impression: Normal study.
== END | disposition home or self-care (01) ==
LOC: RADUSWWP 14:16
PROVIDERS: ATTEND Family Medicine
DX: I83.90 Asymptomatic varicose veins of unspecified lower extremity (principal)
CPT/HCPCS: 93922

== ENCOUNTER 2022-06-20 03:26 | Emergency (ER) | payer BC ==
[2022-06-20 03:32] VITALS: RESP 18; TEMP 98
--- NOTE | 2022-06-20 03:52 | ED ---
Abdominal Pain HPI - General Chief Complaint: Abdominal Pain Stated Complaint: R SIDE PAIN Time Seen by Provider: 06/20/22 03:35 Source: patient Mode of arrival: ambulatory Limitations: no limitations - History of Present Illness Initial Comments: This patient is a 31-year-old woman who presents to have evaluation of right lower quadrant pain. She states that it started a bit over an hour ago and woke her from sleep. She states that it is a sharp pain. It has been constant though it does wax and wane in severity. She has had associated nausea. She has not noted worsening or relieving factors. MD Complaint: abdominal pain Onset/Timin -: hour(s) Location: RLQ Radiation: none Severity: severe Quality: sharp Consistency: colicky Improves With: nothing Worsens With: nothing Associated Symptoms: nausea - Related Data LMP (females 10-50): 1 month Patient : No Previous Rx's Medication Instructions Recorded Ibuprofen [Motrin] 600 mg PO Q6HR PRN #40 tab 02/08/20 Sulfamethox-Tmp 800-160Mg [Bactrim 1 each PO Q12HR #6 tab 06/20/22 Ds] Allergies Allergy/AdvReac Type Severity Reaction Status Date / Time cephalexin [From Keflex] AdvReac Nausea & Verified 02/07/20 06:00 Vomiting & Diarrhea Review of Systems ROS Statement: Those systems with pertinent positive or pertinent negative responses have been documented in the HPI. ROS Other: All systems not noted in ROS Statement are negative. Constitutional: Denies: fever, chills Respiratory: Denies: cough, dyspnea Cardiovascular: Denies: chest pain, edema Gastrointestinal: Reports: abdominal pain, nausea. Denies: vomiting, diarrhea, constipation, melena, hematochezia Genitourinary: Denies: dysuria, frequency, hematuria Musculoskeletal: Denies: back pain Skin: Denies: rash Neurological: Denies: headache, weakness, numbness Past Medical History Past Medical History: Seizure Disorder Additional Past Medical History / Comment(s): Heart palpitations; patient had a chlamydial infection in November 2014. 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 History of Any Multi-Drug Resistant Organisms: None Reported Past Surgical History: Adenoidectomy Additional Past Surgical History / Comment(s): Exploratory laparotomy with right ovarian cystectomy March 2006. Past Anesthesia/Blood Transfusion Reactions: No Reported Reaction Past Psychological History: No Psychological Hx Reported Smoking Status: Never smoker Past Alcohol Use History: None Reported, Occasional Past Drug Use History: None Reported - Past Family History Mother Family Medical History: No Reported History General Exam Limitations: no limitations General appearance: alert, in no apparent distress Head exam: Present: atraumatic, normocephalic Eye exam: Present: normal appearance. Absent: scleral icterus, conjunctival injection Neck exam: Present: normal inspection Respiratory exam: Present: normal lung sounds bilaterally. Absent: respiratory distress, wheezes, rales, rhonchi, stridor Cardiovascular Exam: Present: regular rate, normal rhythm, normal heart sounds. Absent: systolic murmur, diastolic murmur, rubs, gallop GI/Abdominal exam: Present: soft. Absent: distended, tenderness, guarding, rebound, rigid, mass, pulsatile mass, hernia Extremities exam: Present: normal inspection, normal capillary refill. Absent: pedal edema, calf tenderness Back exam: Present: normal inspection. Absent: CVA tenderness (R), CVA tenderness (L) Neurological exam: Present: alert Skin exam: Present: warm, dry, intact, normal color. Absent: rash Course Vital Signs 06/20/22 06/20/22 03:28 07:31 Temperature 98 F Pulse Rate 91 90 Respiratory 18 18 Rate Blood Pressure 130/85 132/84 O2 Sat by Pulse 99 96 Oximetry Medical Decision Making - Medical Decision Making This patient is 31-year-old woman with lower abdominal pain. There is some mild tenderness on the exam and patient is sent for computed tomography scan which I interpreted as not showing evidence of kidney stone or acute appendicitis. Was pt. sent in by a medical professional or institution (, PA, TUFTING SUPERVISOR, urgent care, hospital, or [facility]...) When possible be specific @ -[No] Did you speak to anyone other than the patient for history (EMS, parent, family, police, friend...)? What history was obtained from this source @ -[No] Did you review nursing and triage notes (agree or disagree)? Why? @ -[I reviewed and agree with nursing and triage notes] Were old charts reviewed (outside hosp., previous admission, EMS record, old EKG, old radiological studies, urgent care reports/EKG's, [facility] records)? Report findings @ -[No old charts were reviewed] Differential Diagnosis (chest pain, altered mental status, abdominal pain women, abdominal pain men, vaginal bleeding, weakness, fever, dyspnea, syncope, headache, dizziness, GI bleed, back pain, seizure, CVA, palpatations, mental health, musculoskeletal)? @ -[Differential Abdominal Pain Women: Appendicitis, Cholecystitis, diverticulosis, ischemic bowel, pancreatitis, hepatitis, UTI, gastroenteritis, AAA, incarcerated hernia, bowel obstruction, c onstipation, inflammatory bowel, hepatitis, peptic ulcer disease, splenic infarction, perforated viscus, vulvitis, ovarian torsion, PID, kidney stone, placenta abruption, this is not meant to be an all-inclusive list EKG interpreted by me (3pts min.). @ -[ X-rays interpreted by me (1pt min.). @ -[None done] CT interpreted by me (1pt min.). @ -[As above U/S interpreted by me (1pt. min.). @ -[None done] What testing was considered but not performed or refused? (CT, X-rays, U/S, labs)? Why? @ -[None] What meds were considered but not given or refused? Why? @ -[None] Did you discuss the management of the patient with other professionals (professionals i.e. , PA, TUFTING SUPERVISOR, lab, RT, psych nurse, socially responsible investment adviser, tenon machine operator, teacher, licensed mortgage loan officer, special education case manager)? Give summary @ -[No] Was smoking cessation discussed for >3mins.? @ -[No] Was critical care preformed (if so, how long)? @ -[No] Were there social determinants of health that impacted care today? How? (Homelessness, low income, unemployed, alcoholism, drug addiction, transportatio n, low edu. Level, literacy, decrease access to med. care, long-term, rehab)? @ -[No] Was there de-escalation of care discussed even if they declined (Discuss DNR or withdrawal of care, Hospice)? DNR status @ -[No] What co-morbidities impacted this encounter? (DM, HTN, Smoking, COPD, CAD, Cancer, CVA, ARF, Chemo, Hep., AIDS, mental health diagnosis, sleep apnea, morbid obesity)? @ -[None] Was patient admitted / discharged? Hospital course, mention meds given and route, prescriptions, significant lab abnormalities, going to OR and other pertinent info. @ -[Discharged Undiagnosed new problem with uncertain prognosis? @ -[No] Drug Therapy requiring intensive monitoring for toxicity (Heparin, Nitro, Insulin, Cardizem)? @ -[No] Were any procedures done? @ -[No] Diagnosis/symptom? @ -[1. Abdominal pain 2. Acute urinary tract infection Acute, or Chronic, or Acute on Chronic? @ -[Acute Uncomplicated (without systemic symptoms) or Complicated (systemic symptoms)? @ -[Uncomplicated Side effects of treatment? @ -[No] Exacerbation, Progression, or Severe Exacerbation? @ -[No] Poses a threat to life or bodily function? How? (Chest pain, USA, SC, pneumonia, PE, COPD, DKA, ARF, appy, cholecystitis, CVA, Diverticulitis, Homicidal, Suicidal, threat to staff... and all critical care pts) @ -[No] - Lab Data Result diagrams: 06/20/22 03:46 06/20/22 03:46 Lab Results 06/20/22 06/20/22 06/20/22 Range/Units 03:46 03:46 03:46 WBC 8.3 (3.8-10.6) k/uL RBC 5.16 (3.80-5.40) m/uL Hgb 14.5 (11.4-16.0) gm/dL Hct 42.6 (34.0-46.0) % MCV 82.6 (80.0-100.0) fL MCH 28.1 (25.0-35.0) pg MCHC 34.0 (31.0-37.0) g/dL RDW 12.8 (11.5-15.5) % Plt Count 159 (150-450) k/uL MPV 8.9 Neutrophils % 56 % Lymphocytes % 32 % Monocytes % 5 % Eosinophils % 4 % Basophils % 0 % Neutrophils # 4.7 (1.3-7.7) k/uL Lymphocytes # 2.7 (1.0-4.8) k/uL Monocytes # 0.4 (0-1.0) k/uL Eosinophils # 0.3 (0-0.7) k/uL Basophils # 0.0 (0-0.2) k/uL Sodium 139 (137-145) mmol/L Potassium 3.9 (3.5-5.1) mmol/L Chloride 104 (98-107) mmol/L Carbon Dioxide 25 (22-30) mmol/L Anion Gap 10 mmol/L BUN 17 (7-17) mg/dL Creatinine 0.69 (0.52-1.04) mg/dL Est GFR (CKD-EPI)AfAm >90 (>60 ml/min/1.73 sqM) Est GFR (CKD-EPI)NonAf >90 (>60 ml/min/1.73 sqM) Glucose 95 (74-99) mg/dL Plasma Lactic Acid Malachi (0.7-2.0) mmol/L Calcium 9.4 (8.4-10.2) mg/dL Total Bilirubin 0.6 (0.2-1.3) mg/dL AST 27 (14-36) U/L ALT 43 H (4-34) U/L Alkaline Phosphatase 81 (38-126) U/L Total Protein 7.2 (6.3-8.2) g/dL Albumin 4.2 (3.5-5.0) g/dL Amylase 44 (30-110) U/L Lipase 73 (23-300) U/L Urine Color Yellow Urine Appearance Clear (Clear) Urine pH 5.5 (5.0-8.0) Ur Specific [place] 1.023 (1.001-1.035) Urine Protein Negative (Negative) Urine Glucose (UA) Negative (Negative) Urine Ketones Negative (Negative) Urine Blood Negative (Negative) Urine Nitrite Negative (Negative) Urine Bilirubin Negative (Negative) Urine Urobilinogen <2.0 (<2.0) mg/dL Ur Leukocyte Esterase Moderate H (Negative) Urine RBC 2 (0-5) /hpf Urine WBC 5 (0-5) /hpf Ur Squamous Epith Cells 2 (0-4) /hpf Urine Bacteria Rare H (None) /hpf Urine Mucus Rare H (None) /hpf Urine HCG, Qual (Not Detectd) 06/20/22 06/20/22 Range/Units 03:46 03:46 WBC (3.8-10.6) k/uL RBC (3.80-5.40) m/uL Hgb (11.4-16.0) gm/dL Hct (34.0-46.0) % MCV (80.0-100.0) fL MCH (25.0-35.0) pg MCHC (31.0-37.0) g/dL RDW (11.5-15.5) % Plt Count (150-450) k/uL MPV Neutrophils % % Lymphocytes % % Monocytes % % Eosinophils % % Basophils % % Neutrophils # (1.3-7.7) k/uL Lymphocytes # (1.0-4.8) k/uL Monocytes # (0-1.0) k/uL Eosinophils # (0-0.7) k/uL Basophils # (0-0.2) k/uL Sodium (137-145) mmol/L Potassium (3.5-5.1) mmol/L Chloride (98-107) mmol/L Carbon Dioxide (22-30) mmol/L Anion Gap mmol/L BUN (7-17) mg/dL Creatinine (0.52-1.04) mg/dL Est GFR (CKD-EPI)AfAm (>60 ml/min/1.73 sqM) Est GFR (CKD-EPI)NonAf (>60 ml/min/1.73 sqM) Glucose (74-99) mg/dL Plasma Lactic Acid Malachi 0.9 (0.7-2.0) mmol/L Calcium (8.4-10.2) mg/dL Total Bilirubin (0.2-1.3) mg/dL AST (14-36) U/L ALT (4-34) U/L Alkaline Phosphatase (38-126) U/L Total Protein (6.3-8.2) g/dL Albumin (3.5-5.0) g/dL Amylase (30-110) U/L Lipase (23-300) U/L Urine Color Urine Appearance (Clear) Urine pH (5.0-8.0) Ur Specific [place] (1.001-1.035) Urine Protein (Negative) Urine Glucose (UA) (Negative) Urine Ketones (Negative) Urine Blood (Negative) Urine Nitrite (Negative) Urine Bilirubin (Negative) Urine Urobilinogen (<2.0) mg/dL Ur Leukocyte Esterase (Negative) Urine RBC (0-5) /hpf Urine WBC (0-5) /hpf Ur Squamous Epith Cells (0-4) /hpf Urine Bacteria (None) /hpf Urine Mucus (None) /hpf Urine HCG, Qual Not Detected (Not Detectd) Disposition Clinical Impression: Abdominal pain, UTI (urinary tract infection) Disposition: HOME SELF-CARE Condition: Good Instructions (If sedation given, give patient instructions): Abdominal Pain (ED) Prescriptions: Sulfamethox-Tmp 800-160Mg [Bactrim Ds] 1 each PO Q12HR #6 tab Is patient prescribed a controlled substance at d/c from ED?: No Referrals: Brett Rhodes MD [Primary Care Provider] - 1-2 days
[2022-06-20 04:02] LABS: Basophils % (A) 0 %; Eosinophils # (A) 0.3 k/uL (0-0.7); Eosinophils % (A) 4 %; HCT 42.6 % (34.0-46.0); HGB 14.5 gm/dL (11.4-16.0); Lymphocytes # (A) 2.7 k/uL (1.0-4.8); Lymphocytes % (A) 32 %; MCH 28.1 pg (25.0-35.0); MCV 82.6 fL (80.0-100.0); Mean Platelet Volume 8.9; Monocytes # (A) 0.4 k/uL (0-1.0); Monocytes % (A) 5 %; Neutrophils # (A) 4.7 k/uL (1.3-7.7); Neutrophils % (A) 56 %; Platelet Count 159 k/uL (150-450); RBC 5.16 m/uL (3.80-5.40); RDW 12.8 % (11.5-15.5); WBC 8.3 k/uL (3.8-10.6)
[2022-06-20 04:05] LABS: Appearance,Urine Clear (Clear); Bacteria,Urine Rare /hpf; Bilirubin,Urine Negative (Negative); Blood,Urine Negative (Negative); Color,Urine Yellow; Glucose,Urine (UA) Negative (Negative); Ketones,Urine Negative (Negative); Leukocyte Esterase,Urine Moderate (Negative); Mucus,Urine Rare /hpf; Nitrite,Urine Negative (Negative); PH, Urine 5.5 (5.0-8.0); Protein,Urine Negative (Negative); RBC,Urine 2 /hpf (0-5); Specific Gravity,Urine 1.023 (1.001-1.035); Squamous Epithelial Cell,Urine 2 /hpf (0-4); Urobilinogen,Urine <2.0 mg/dL (<2.0); WBC,Urine 5 /hpf (0-5)
[2022-06-20 04:15] LABS: ALT 43 U/L (4-34); AST 27 U/L (14-36); African American GFR (CKD) >90 (>60 ml/min/1.73 sqM); Albumin 4.2 g/dL (3.5-5.0); Alkaline Phosphatase 81 U/L (38-126); Amylase 44 U/L (30-110); Anion Gap 10 mmol/L; Blood Urea Nitrogen 17 mg/dL (7-17); Calcium 9.4 mg/dL (8.4-10.2); Carbon Dioxide 25 mmol/L (22-30); Chloride 104 mmol/L (98-107); Glucose 95 mg/dL (74-99); Lipase 73 U/L (23-300); Non-African American GFR(CKD) >90 (>60 ml/min/1.73 sqM); Potassium 3.9 mmol/L (3.5-5.1); Sodium 139 mmol/L (137-145); Total Bilirubin 0.6 mg/dL (0.2-1.3); Total Protein 7.2 g/dL (6.3-8.2)
--- NOTE | 2022-06-20 06:46 | CT ---
EXAM: CT Abdomen and Pelvis Without Intravenous Contrast CLINICAL HISTORY: ITS.REASON CT Reason: Stone protocol, RLQ pain TECHNIQUE: Axial computed tomography images of the abdomen and pelvis without intravenous contrast. CTDI is 25.4 mGy and DLP is 1437 mGy-cm. This CT exam was performed using one or more of the following dose reduction techniques: automated exposure control, adjustment of the mA and/or kV according to patient size, and/or use of iterative reconstruction technique. Coronal and sagittal reformatted images were created and reviewed. 449 images received COMPARISON: No relevant prior studies available. FINDINGS: Lung bases: Unremarkable. No mass. No consolidation. ABDOMEN: Liver: Mild hepatomegaly. Gallbladder and bile ducts: Unremarkable. No calcified stones. No ductal dilation. Pancreas: Unremarkable. No ductal dilation. Spleen: Mild splenomegaly. Adrenals: Unremarkable. No mass. Kidneys and ureters: 2 mm nonobstructing stone in the lower pole of right kidney. Stomach and bowel: Unremarkable. No obstruction. No mucosal thickening. PELVIS: Appendix: Normal appendix. Bladder: Unremarkable. No stones. Reproductive: 4.4 x 5.3 x 4 cm left adnexal cyst with imperceptible wall. ABDOMEN and PELVIS: Intraperitoneal space: Unremarkable. No free air. No significant fluid collection. Bones/joints: No acute fracture. No dislocation. Soft tissues: Unremarkable. Vasculature: Unremarkable. No abdominal aortic aneurysm. Lymph nodes: Unremarkable. No enlarged lymph nodes. IMPRESSION: 2 mm nonobstructing stone in the lower pole of right kidney. Likely left ovarian cyst.
[2022-06-20] MEDS ORDERED: SULFAMETHOX-TMP 800-160MG 1 EACH TAB PO STA (07:15)
[2022-06-20] MEDS ORDERED: MORPHINE SULFATE 4 MG/ML SYRINGE IV STA (07:22)
[2022-06-20 07:34] VITALS: BP 132/84; PULSE 90
== END 2022-06-20 07:45 | disposition home or self-care (01) ==
LOC: EC 03:26
DX: N39.0 Urinary tract infection, site not specified (principal); N20.0 Calculus of kidney; Z88.1 Allergy status to other antibiotic agents
CPT/HCPCS: 36415; 80053; 82150; 83605; 83690; 85025; 81001; 81025; 74176; 99284; 96374; J2270

== ENCOUNTER 2024-08-31 01:34 | Emergency (ER) | payer BC ==
[2024-08-31 01:42] VITALS: RESP 18
[2024-08-31] MEDS: KETOROLAC 15 MG/ML 1 ML VIAL IVP STA (02:44)
[2024-08-31 02:45] LABS: Basophils # (A) 0.03 10*3/uL (0.00-0.10); Basophils % (A) 0.4 %; Eosinophils # (A) 0.24 10*3/uL (0.04-0.35); Eosinophils % (A) 3.2 %; HCT 39.9 % (37.2-46.3); HGB 14.0 g/dL (12.0-15.0); Lymphocytes # (A) 2.27 10*3/uL (0.90-5.00); Lymphocytes % (A) 30.1 %; MCH 29.1 pg (27.0-32.0); MCHC 35.1 g/dL (32.0-37.0); MCV 83.0 fL (80.0-97.0); Monocytes # (A) 0.56 10*3/uL (0.20-1.00); Monocytes % (A) 7.4 %; Neutrophils # (A) 4.41 10*3/uL (1.80-7.70); Neutrophils % (A) 58.6 %; Platelet Count 160 10*3/uL (140-440); RBC 4.81 10*6/uL (4.10-5.20); RDW 12.1 % (11.5-14.5); WBC 7.53 10*3/uL (4.50-10.00)
[2024-08-31] MEDS: ONDANSETRON 4 MG/2 ML VIAL IVP STA ×2 (02:45→05:23)
[2024-08-31] MEDS: SODIUM CHLORIDE 0.9% 1,000 ML IV ONE (02:45)
[2024-08-31 02:58] LABS: Bilirubin,Urine Negative (Negative); Blood,Urine Trace (Negative); Calcium Oxalate Crystals,Urine Occasional /hpf; Color,Urine Yellow; Glucose,Urine (UA) Negative (Negative); Hyaline Casts,Urine 1 /lpf (0-2); Ketones,Urine Negative (Negative); Leukocyte Esterase,Urine Trace (Negative); Mucus,Urine Moderate /hpf; Nitrite,Urine Negative (Negative); PH, Urine 5.5 (5.0-8.0); Protein,Urine Trace (Negative); RBC,Urine 6 /hpf (0-5); Specific Gravity,Urine 1.031 (1.001-1.035); Squamous Epithelial Cell,Urine 8 /hpf (0-4); Urobilinogen,Urine <2.0 mg/dL (<2.0); WBC,Urine 4 /hpf (0-5)
[2024-08-31 03:02] LABS: ALT 55 U/L (4-34); AST 41 U/L (14-36); African American GFR (CKD) >90 (>60 ml/min/1.73 sqM); Albumin 4.3 g/dL (3.5-5.0); Alkaline Phosphatase 97 U/L (38-126); Anion Gap 9 mmol/L; Blood Urea Nitrogen 18 mg/dL (7-17); Calcium 9.7 mg/dL (8.4-10.2); Carbon Dioxide 26 mmol/L (22-30); Chloride 104 mmol/L (98-107); Glucose 95 mg/dL (74-99); Non-African American GFR(CKD) >90 (>60 ml/min/1.73 sqM); Potassium 3.9 mmol/L (3.5-5.1); Sodium 139 mmol/L (137-145); Total Protein 7.2 g/dL (6.3-8.2)
--- NOTE | 2024-08-31 03:44 | CT ---
EXAM: CT Abdomen and Pelvis Without Intravenous Contrast CLINICAL HISTORY: ITS.REASON CT Reason: Right flank pain TECHNIQUE: Axial computed tomography images of the abdomen and pelvis without intravenous contrast. CTDI is 24.2 mGy and DLP is 1387 mGy-cm. This CT exam was performed using one or more of the following dose reduction techniques: automated exposure control, adjustment of the mA and/or kV according to patient size, and/or use of iterative reconstruction technique. COMPARISON: No relevant prior studies available. FINDINGS: Lung bases: Unremarkable. No mass. No consolidation. ABDOMEN: Liver: Unremarkable. Gallbladder and bile ducts: Unremarkable. No calcified stones. No ductal dilation. Pancreas: Unremarkable. No ductal dilation. Spleen: Unremarkable. No splenomegaly. Adrenals: Unremarkable. No mass. Kidneys and ureters: Obstructing 7 mm right distal ureter stone. Mild fullness of the right renal collecting system. Stomach and bowel: Unremarkable. No obstruction. No mucosal thickening. PELVIS: Appendix: No findings to suggest acute appendicitis. Bladder: Unremarkable. No stones. Reproductive: Unremarkable as visualized. ABDOMEN and PELVIS: Intraperitoneal space: Unremarkable. No free air. No significant fluid collection. Bones/joints: No acute fracture. No dislocation. Soft tissues: Unremarkable. Vasculature: Unremarkable. No abdominal aortic aneurysm. Lymph nodes: Unremarkable. No enlarged lymph nodes. IMPRESSION: Obstructing 7 mm right distal ureter stone. Mild fullness of the right renal collecting system.
[2024-08-31] MEDS: TAMSULOSIN 0.4 MG CAP.ER.24H PO STA (04:19)
[2024-08-31] MEDS: MORPHINE SULFATE 4 MG/ML SYRINGE IVP STA (04:19)
--- NOTE | 2024-08-31 04:34 | ED ---
Abdominal Pain HPI - General Chief Complaint: Abdominal Pain Stated Complaint: abd pain Time Seen by Provider: 08/31/24 01:57 Source: patient Mode of arrival: ambulatory Limitations: no limitations - History of Present Illness Initial Comments: 33-year-old female presenting chief complaint of right-sided flank pain. Started an hour ago. Pain radiates to the front of the abdomen as well. History of kidney stones but states that this does not feel similar. No hematuria or dysuria. No urgency or frequency. Admits to nausea and vomiting. No fever or chills. - Related Data Previous Rx's Medication Instructions Recorded Ibuprofen [Motrin] 600 mg PO Q6HR PRN #40 tab 02/08/20 Sulfamethox-Tmp 800-160Mg [Bactrim 1 each PO Q12HR #6 tab 06/20/22 Ds] Acetaminophen-Codeine 300-30mg 1 tab PO Q6H PRN 3 Days #12 tablet 08/31/24 [Tylenol w/codeine #3] Ondansetron Odt [Zofran Odt] 4 mg PO Q8HR PRN #20 tab 08/31/24 Tamsulosin [Flomax] 0.4 mg PO DAILY #10 cap 08/31/24 Allergies Allergy/AdvReac Type Severity Reaction Status Date / Time cephalexin [From Keflex] AdvReac Nausea & Verified 08/31/24 01:42 Vomiting & Diarrhea Review of Systems ROS Statement: Those systems with pertinent positive or pertinent negative responses have been documented in the HPI. ROS Other: All systems not noted in ROS Statement are negative. Past Medical History Past Medical History: Seizure Disorder Additional Past Medical History / Comment(s): Heart palpitations; patient had a chlamydial infection in November 2014. 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 History of Any Multi-Drug Resistant Organisms: None Reported Past Surgical History: Adenoidectomy Additional Past Surgical History / Comment(s): Exploratory laparotomy with right ovarian cystectomy March 2006. Past Anesthesia/Blood Transfusion Reactions: No Reported Reaction Past Psychological History: No Psychological Hx Reported Smoking Status: Never smoker Past Alcohol Use History: None Reported, Occasional Past Drug Use History: None Reported - Past Family History Mother Family Medical History: No Reported History General Exam Limitations: no limitations General appearance: alert, in no apparent distress Head exam: Present: atraumatic, normocephalic, normal inspection Eye exam: Present: normal appearance, EOMI Neck exam: Present: normal inspection. Absent: meningismus Respiratory exam: Present: normal lung sounds bilaterally. Absent: respiratory distress, wheezes, rales, rhonchi, stridor Cardiovascular Exam: Present: regular rate, normal rhythm, normal heart sounds. Absent: systolic murmur, diastolic murmur, rubs, gallop, clicks GI/Abdominal exam: Present: soft. Absent: distended, tenderness, guarding, rebound, rigid Back exam: Absent: CVA tenderness (R), CVA tenderness (L) Neurological exam: Present: alert, oriented X3 Psychiatric exam: Present: normal affect, normal mood Skin exam: Present: warm, dry, normal color Course Vital Signs 08/31/24 08/31/24 01:39 04:55 Temperature 97.7 F 97.8 F Pulse Rate 89 65 Respiratory 18 18 Rate Blood Pressure 132/83 120/73 O2 Sat by Pulse 95 98 Oximetry Medical Decision Making - Medical Decision Making Was pt. sent in by a medical professional or institution (, PA, STAGE ELECTRICIAN, urgent care, hospital, or [facility]...) When possible be specific @ -No Did you speak to anyone other than the patient for history (EMS, parent, family, police, friend...)? What history was obtained from this source @ -No Did you review nursing and triage notes (agree or disagree)? Why? @ -I reviewed and agree with nursing and triage notes Were old charts reviewed (outside hosp., previous admission, EMS record, old EKG, old radiological studies, urgent care reports/EKG's, [facility] records)? Report findings @ -No old charts were reviewed Differential Diagnosis (chest pain, altered mental status, abdominal pain women, abdominal pain men, vaginal bleeding, weakness, fever, dyspnea, syncope, headache, dizziness, GI bleed, back pain, seizure, CVA, palpatations, mental health, musculoskeletal)? @ - MDM Differential Back Pain: Strain, zoster, cauda equina syndrome, epidural abscess, vertebral osteomyelitis, discitis, fracture, subluxation, disc herniation, DJD, spinal stenosis, dissection, AAA, pancreatitis, peptic ulcer disease, pyelonephritis, kidney stone… this is not meant to be an all-inclusive list. EKG interpreted by me (3pts min.). @ -As above X-rays interpreted by me (1pt min.). @ -None done CT interpreted by me (1pt min.). @ -CT shows obstructing 7 mm right distal ureter stone. Mild fullness of the right renal collecting system U/S interpreted by me (1pt. min.). @ -None done What testing was considered but not performed or refused? (CT, X-rays, U/S, labs)? Why? @ -None What meds were considered but not given or refused? Why? @ -None Did you discuss the management of the patient with other professionals (professionals i.e. , PA, STAGE ELECTRICIAN, lab, RT, psych nurse, vp digital marketing social media and crm, laminator printed circuit boards, teacher, tactical deception plans officer, case therapist)? Give summary @ -No Was smoking cessation discussed for >3mins.? @ -No Was critical care preformed (if so, how long)? @ -No Were there social determinants of health that impacted care today? How? (Homelessness, low income, unemployed, alcoholism, drug addiction, transportation, low edu. Level, literacy, decrease access to med. care, fdc, rehab)? @ -No Was there de-escalation of care discussed even if they declined (Discuss DNR or withdrawal of care, Hospice)? DNR status @ -No What co-morbidities impacted this encounter? (DM, HTN, Smoking, COPD, CAD, Cancer, CVA, ARF, Chemo, Hep., AIDS, mental health diagnosis, sleep apnea, morbid obesity)? @ -None Was patient admitted / discharged? Hospital course, mention meds given and route, prescriptions, significant lab abnormalities, going to OR and other pertinent info. @ -33-year-old female presenting chief complaint of right-sided flank pain started tonight. History and physical examination are conducted. CT positive for 7 mm right distal ureter stone. Urine shows no evidence of infection, there are 6 RBCs. Patient is provided with pain medication. She is educated on today's findings and supportive management at home. Follow-up with PCP. Report back to ER with any new or worsening symptoms. Discussed return parameters and answered all questions. Patient conveyed verbal understanding and agreed to the plan. I discussed this case in detail with my attending Dr. Oliver Undiagnosed new problem with uncertain prognosis? @ -No Drug Therapy requiring intensive monitoring for toxicity (Heparin, Nitro, Insulin, Cardizem)? @ -No Were any procedures done? @ -No Diagnosis/symptom? @ -Kidney stone Acute, or Chronic, or Acute on Chronic? @ -Acute Uncomplicated (without systemic symptoms) or Complicated (systemic symptoms)? @ -Uncomplicated Side effects of treatment? @ -No Exacerbation, Progression, or Severe Exacerbation? @ -No Poses a threat to life or bodily function? How? (Chest pain, [place], [place], pneumonia, PE, COPD, DKA, ARF, appy, cholecystitis, CVA, Diverticulitis, Homicidal, Suicidal, threat to staff... and all critical care pts) @ -Unlikely - Lab Data Result diagrams: 08/31/24 02:31 08/31/24 02:31 Lab Results 08/31/24 08/31/24 08/31/24 Range/Units 02:00 02:31 02:31 WBC 7.53 (4.50-10.00) 10*3/uL RBC 4.81 (4.10-5.20) 10*6/uL Hgb 14.0 (12.0-15.0) g/dL Hct 39.9 (37.2-46.3) % MCV 83.0 (80.0-97.0) fL MCH 29.1 (27.0-32.0) pg MCHC 35.1 (32.0-37.0) g/dL Plt Count 160 (140-440) 10*3/uL MPV 11.6 (9.5-12.2) fL Immature Gran % (Auto) 0.3 % Neutrophils % 58.6 % Lymphocytes % 30.1 % Monocytes % 7.4 % Eosinophils % 3.2 % Basophils % 0.4 % Immature Gran # 0.02 (0.00-0.04) 10*3/uL Neutrophils # 4.41 (1.80-7.70) 10*3/uL Lymphocytes # 2.27 (0.90-5.00) 10*3/uL Monocytes # 0.56 (0.20-1.00) 10*3/uL Eosinophils # 0.24 (0.04-0.35) 10*3/uL Basophils # 0.03 (0.00-0.10) 10*3/uL Sodium 139 (137-145) mmol/L Potassium 3.9 (3.5-5.1) mmol/L Chloride 104 (98-107) mmol/L Carbon Dioxide 26 (22-30) mmol/L Anion Gap 9 mmol/L BUN 18 H (7-17) mg/dL Creatinine 0.78 (0.52-1.04) mg/dL Est GFR (CKD-EPI)AfAm >90 (>60 ml/min/1.73 sqM) Est GFR (CKD-EPI)NonAf >90 (>60 ml/min/1.73 sqM) Glucose 95 (74-99) mg/dL Calcium 9.7 (8.4-10.2) mg/dL Total Bilirubin 0.5 (0.2-1.3) mg/dL AST 41 H (14-36) U/L ALT 55 H (4-34) U/L Alkaline Phosphatase 97 (38-126) U/L Total Protein 7.2 (6.3-8.2) g/dL Albumin 4.3 (3.5-5.0) g/dL Urine Color Yellow Urine Appearance Cloudy H (Clear) Urine pH 5.5 (5.0-8.0) Ur Specific [place] 1.031 (1.001-1.035) Urine Protein Trace H (Negative) Urine Glucose (UA) Negative (Negative) Urine Ketones Negative (Negative) Urine Blood Trace H (Negative) Urine Nitrite Negative (Negative) Urine Bilirubin Negative (Negative) Urine Urobilinogen <2.0 (<2.0) mg/dL Ur Leukocyte Esterase Trace H (Negative) Urine RBC 6 H (0-5) /hpf Urine WBC 4 (0-5) /hpf Ur Squamous Epith Cells 8 H (0-4) /hpf Calcium Oxalate Crystal Occasional H (None) /hpf Hyaline Casts 1 (0-2) /lpf Urine Mucus Moderate H (None) /hpf Disposition Clinical Impression: Kidney stone Disposition: HOME SELF-CARE Condition: Good Instructions (If sedation given, give patient instructions): Kidney Stones (ED) Additional Instructions: Follow-up with PCP. Report back to ER with any new or worsening symptoms. Prescriptions: Tamsulosin [Flomax] 0.4 mg PO DAILY #10 cap Acetaminophen-Codeine 300-30mg [Tylenol w/codeine #3] 1 tab PO Q6H PRN 3 Days #12 tablet PRN Reason: Pain Ondansetron Odt [Zofran Odt] 4 mg PO Q8HR PRN #20 tab PRN Reason: Nausea Is patient prescribed a controlled substance at d/c from ED?: No Referrals: Brett Rhodes MD [Primary Care Provider] - 1-2 days Time of Disposition: 04:32
[2024-08-31] MEDS: ONDANSETRON 4 MG ODT STARTER PACK 2 TAB BTL PO STA (04:54)
[2024-08-31] MEDS: ACET/COD 300 MG/30 MG STARTER PACK 6 TAB BTL PO STA (04:54)
[2024-08-31 04:57] VITALS: BP 120/73; PULSE 65; TEMP 97.8
[2024-08-31] MEDS: HYDROmorphone 1 MG/ML 1 ML SYRINGE IVP STA (05:20)
== END 2024-08-31 06:25 | disposition home or self-care (01) ==
LOC: EC 01:34
DX: N20.2 Calculus of kidney with calculus of ureter (principal); Z88.1 Allergy status to other antibiotic agents
CPT/HCPCS: 36415; 80053; 85025; 81001; 74176; 99284; 96374; 96375; 96361 ×2; J2270; J2405; J1171; J1885; S0119

== ENCOUNTER → 2024-09-20 | Outpatient (CLI) | payer BC ==
--- NOTE | 2024-09-20 12:27 | XR ---
EXAMINATION TYPE: XR KUB DATE OF EXAM: 09/20/2024 COMPARISON: CT abdomen and pelvis 08/31/2024, 06/20/2022, KUB radiograph 05/12/2014 HISTORY: N20.1 CALCULUS OF URETER TECHNIQUE: Single supine KUB image of the abdomen is obtained FINDINGS: Small bowel demonstrates no evidence for dilatation or air fluid levels. Gas and fecal material is seen in non-distended colon. No convincing evidence for pneumoperitoneum. No definitive renal calculi. No significant change in position of distal right ureteral 7 mm calculus at the uterovesical junction. Multiple pelvic phleboliths redemonstrated. The lung bases are clear. The osseous structures are intact. IMPRESSION: No significant change in position of distal right ureteral 7 mm calculus at the uterovesical junction . [facility], , 09/20/2024 12:25 PM
== END | disposition home or self-care (01) ==
LOC: RADXRMAIN 12:01
PROVIDERS: ATTEND Urology
DX: N20.1 Calculus of ureter (principal)
CPT/HCPCS: 74018